=== PATIENT | male | born 1970 | race Two or more races ===

== ENCOUNTER 2023-12-10 08:23 | Day surgery (SDC) | payer BC, SELFPAY ==
--- NOTE | 2023-12-10 08:26 | FL_ITS ---
[address] [address] Patient Name: JUSTA HOU MRN: [id number] date: 1970 Sex: M Assigned Patient Location: MRI Current Patient Location: MRI Accession/Order Number: [id number] Exam Date: 12/10/2023 09:00 Report Date: 12/10/2023 09:57 At the request of: KIMBERLY INMAN Procedure: FL arthrogram hip EXAMINATION: FL arthrogram hip, FL guided needle placement HISTORY: Chronic left hip pain COMPARISON: No relevant comparison available. TECHNIQUE: An arthrogram was performed under fluoroscopic guidance using non-ionic contrast material in the usual sterile manner after obtaining informed consent. Standard level fluoroscopic mode of operation utilized. FINDINGS: JOINT: Left hip NEEDLE: 25 gauge, 3.5 spinal needle. MEDICATION: 2 mL buffered 1% lidocaine for subcutaneous anesthesia. Approximately 8 mL injected into joint space consisting of a mixture of 5 mL Omnipaque-300, 5 mL 1% Xylocaine, 40 mg Kenalog, and 0.2 mL Dotarem. TECHNIQUE: Anterior approach under fluoroscopic guidance. CLINICAL: Decreased pain following the injection (8/10 preinjection; 2/10 post injection). COMPLICATIONS: None. OTHER: Negative. FL/FL arthrogram hip IMPRESSION: 1. Technically successful arthrogram without complication. 2. Please see separate MRI arthrogram report. Electronically authenticated by: DAVID MENARD Date: 12/10/2023 09:57
--- NOTE | 2023-12-10 08:26 | FL_ITS ---
[address] [address] Patient Name: JUSTA HOU MRN: [id number] date: 1970 Sex: M Assigned Patient Location: MRI Current Patient Location: MRI Accession/Order Number: [id number] Exam Date: 12/10/2023 09:00 Report Date: 12/10/2023 09:57 At the request of: KIMBERLY INMAN Procedure: FL guided needle placement EXAMINATION: FL arthrogram hip, FL guided needle placement HISTORY: Chronic left hip pain COMPARISON: No relevant comparison available. TECHNIQUE: An arthrogram was performed under fluoroscopic guidance using non-ionic contrast material in the usual sterile manner after obtaining informed consent. Standard level fluoroscopic mode of operation utilized. FINDINGS: JOINT: Left hip NEEDLE: 25 gauge, 3.5 spinal needle. MEDICATION: 2 mL buffered 1% lidocaine for subcutaneous anesthesia. Approximately 8 mL injected into joint space consisting of a mixture of 5 mL Omnipaque-300, 5 mL 1% Xylocaine, 40 mg Kenalog, and 0.2 mL Dotarem. TECHNIQUE: Anterior approach under fluoroscopic guidance. CLINICAL: Decreased pain following the injection (8/10 preinjection; 2/10 post injection). COMPLICATIONS: None. OTHER: Negative. FL/FL guided needle placement IMPRESSION: 1. Technically successful arthrogram without complication. 2. Please see separate MRI arthrogram report. Electronically authenticated by: DAVID MENARD Date: 12/10/2023 09:57
--- NOTE | 2023-12-10 08:26 | MR_ITS ---
The [address] [address] Patient Name: JUSTA HOU MRN: [id number] date: 1970 Sex: M Assigned Patient Location: MRI Current Patient Location: MRI Accession/Order Number: [id number] Exam Date: 12/10/2023 09:34 Report Date: 12/10/2023 12:22 At the request of: KIMBERLY INMAN Procedure: MR hip LT w con HISTORY: Chronic left hip pain for the past 2 years. No known injury. Evaluate for avascular necrosis, labral tear and arthritis. MRI left hip with contrast (direct MR arthrogram) 12/10/2023. COMPARISON: None. TECHNIQUE: Multiplanar, multisequence MRI images of the pelvis and left hip were obtained following the fluoroscopic guided administration of dilute gadolinium into the left hip joint for an MR arthrogram. FINDINGS: The bone marrow signal intensity is age appropriate. A least moderate to severe discogenic disease with mild adjacent type I Modic endplate change at the L5-S1 level. There is no evidence of avascular necrosis or fracture of the left hip. There are severe degenerative changes primarily involving the superolateral and anterosuperior aspect of the left hip joint where there is grade IV chondromalacia with joint space narrowing and marginal osteophyte formation of the acetabulum. There is a complex tear of the anterolateral and superolateral aspect of the labrum. There is a small 6 mm paralabral cyst adjacent to the posterolateral aspect of the acetabulum. There are multiple small linear low signal intensity filling defects within the contrast of the left hip joint compatible with a probable underlying synovitis. There is a large osseous ridge along the anterolateral aspect of the femoral head/neck junction. On the large jwbrh-ak-fueb images of the pelvis there appear to be at least mild degenerative changes of the superolateral aspect of the right hip joint. MR/MR hip LT w con IMPRESSION: 1. There are severe degenerative changes of the left hip joint as described above with a complex tear of the anterolateral and superolateral aspect of the labrum. 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 2. There appear to be at least mild degenerative changes of the superolateral aspect of the right hip joint on the large icitb-fg-hrpk images of the pelvis. 3. There appears to be at least moderate to severe degenerative change at the L5-S1 level. Electronically authenticated by: CHRISTY PERALTA Date: 12/10/2023 12:22
[2023-12-10] MEDS: TRIAMCINOLONE ACETONIDE 40 MG/ML VIAL INJ (09:15)
[2023-12-10] MEDS: LIDOCAINE HCL 15 ML, SODIUM BICARBONATE 2 MEQ INJ (09:15)
--- NOTE | 2023-12-10 09:58 | SUR.PREOP ---
12/05/23 Instructe d pt on procedure, prep, date, time.
== END 2023-12-10 09:35 | disposition home or self-care (01) ==
LOC: MRI 08:23
PROVIDERS: Radiology Diagnostic Radiology; PCP Internal Medicine; Visit Provider Personal Emergency Response Attendant
DX: M25.552 Pain in left hip (principal); M16.12 Unilateral primary osteoarthritis, left hip
CPT/HCPCS: 27093; 73722; 77002; A9575; J3301; Q9967

== ENCOUNTER 2025-10-27 20:40 | Emergency (ER) | payer BC, SELFPAY ==
--- OUTSIDE RECORDS SUMMARY | 2025-10-18 07:54 | XMS_ITS | Encounter Summary ---
Author Organization [facility] tem Address [id number] [address] [place] [address] Care Team Providers Care Leather Stretcher Name Role Phone Unavailable Primary Care Provider Unavailabl e Encounter Details DateTypeDepartmentCare Team (Latest Contact Info)Edxsotpqefn50/15/2025 7:54 AM EST - 10/18/2025 11:59 PM ESTHospital Encounter [facility] [address] [facility] [place] [id number] Oneal Cordero MD [address] [place] [address] Primary osteoarthritis of left hip Discharge Disposition: Home Social History Tobacco UseTypesPacks/DayYears UsedDateSmoking Tobacco: FormerCigarettes Smokeless Tobacco: CurrentSnuff Comments:Smoked for 30 years 1pk/day quit 2009 Alcohol UseStandard Drinks/GsljUeklvrhfFky24 (1 standard drink = 0.6 oz pure alcohol)ChildcareAnswerDate TqohutftRiafsgemfHtowfdx52/12/2019EmploymentAnswer Date VwbvdbapBzdtwkulruByutjbw15/12/2019Sex and Gender InformationValueDate RecordedSex Assigned at BirthNot on fileLegal RshVaax8706/09/2015 11:30 AM EDT Gender IdentityNot on fileSexual OrientationNot on filedocumented as of this encounter Medications at Time of Discharge MedicationSigDispense QuantityRefillsLast FilledStart DateEnd Date allopurinoL (ZYLOPRIM) 100 mg tablet Take 1 tablet (100 mg total) by mouth in the morning. aspirin 81 mg Indications:Primary osteoarthritis of left hipTake 1 tablet (81 mg total) by mouth in the morning and 1 tablet (81 mg total) before bedtime. Begin taking day AFTER total joint replacement. 60 tablet 09/22/2025 CREATINE MONOHYDRATE ORAL Take 2 tablets by mouth in the morning. hydroCHLOROthiazide (HYDRODIURIL) 25 mg tablet Take 1 tablet (25 mg total) by mouth daily.05/24/2025 losartan (COZAAR) 100 mg tablet Take 1 tablet (100 mg total) by mouth in the morning. meloxicam (MOBIC) 15 mg tablet Indications:Primary osteoarthritis of left hipTake 1 tablet (15 mg total) by mouth in the morning. Begin taking day AFTER total joint replacement. 30 tablet 09/22/2025 ogsjqixz-dbxo-IJ-calcium &mins (THERAGRAN-M) 9 mg iron-400 mcg tablet Take 1 tablet by mouth in the morning. omega 0-lmw-lbn-fish oil 100-400-1,000 mg capsule Take 1,000 mg by mouth in the morning. oxyCODONE-acetaminophen (PERCOCET) 5-325 mg per tablet Indications:Primary osteoarthritis of left hipTake 1 tablet by mouth every 6 (six) hours as needed for pain for up to 7 days. Max Daily Amount: 4tablets 28 tablet rosuvastatin (CRESTOR) 10 mg tablet Take 1 tablet (10 mg total) by mouth in the morning. testosterone (ANDROGEL) 30 mg/actuation (1.5 mL) solution in metered pump w/bre Place 30 mg on the skin in the morning.documented as of this encounter Plan of Treatment DateTypeDepartmentCare Team (Latest Contact Info)Taqsrssbspf78/02/2026 8:30 AM ESTOffice Visit [facility] [address] [place] [address] Veronica Pimentel PA-C [address] [facility] [address] [place] [address] documented as of this encounter Goals GoalPatient Goal TypeAssociated ProblemsRecent ProgressPatient-Stated?Author Autogenerated Goal Care PlanAutogenerated ProblemNoSchroeder, Allisondocumented as of this encounter Procedures Procedure NamePriorityDate/TimeAssociated DiagnosisCommentsXR HIP LT 1 VIEW W OR WO TKFJCZOrvdyct12/15/2025 8:17 AM EST Primary osteoarthritis of left hip documented in this encounter Results * X-ray hip left 1 view with or without pelvis (10/18/2025 8:17 AM EST) Anatomical RegionLateralityModalityLower Extremities, MSK, HipLeftComputed RadiographySpecimen (Source)Anatomical Location / LateralityCollection Method / VolumeCollection TimeReceived Time10/18/2025 8:31 AM EST Narrative 10/18/2025 8:32 AM EST Clinical history: Osteophytosis. Left hip: 10/18/2025 COMPARISON: 01/27/2025 FINDINGS: 2 views of the hip were obtained. Joint space narrowing, subarticular sclerosis, marginal new bone formation are present. The trabecular pattern within the femoral head is within normal limits. Thereare mild degenerative changes at the right hip and within the sacroiliac joints. Bone mineralization is otherwise within normal limits IMPRESSION: Left hip osteoarthritis. Finalized by Spike Chua MD on 10/18/2025 8:32 AM Procedure Note Spike Chua MD - 10/18/2025 Clinical history: Osteophytosis. Left hip: 10/18/2025 COMPARISON: 01/27/2025 FINDINGS: 2 views of the hip were obtained. Joint space narrowing, subarticularsclerosis, marginal new bone formation are present. The trabecular patternwithin the femoral head is within normal limits. There are milddegenerative changes at the right hip and within the sacroiliac joints.Bone mineralization is otherwise within normal limits IMPRESSION: Left hip osteoarthritis. Finalized by Spike Chua MD on 10/18/2025 8:32 AM Authorizing ProviderResult TypeResult StatusCraig P Gil [facility] ORDERABLESFinal Result documented in this encounter Visit Diagnoses Diagnosis Primary osteoarthritis of left hip documented in this encounter Additional Health Concerns Active ProblemsNoted DateDiagnosed DateAutogenerated Fdqsiwp14/07/2025documented as of this encounter
--- OUTSIDE RECORDS SUMMARY | 2025-10-20 05:41 | XMS_ITS | Encounter Summary ---
Author Organization [employer] tem Address [id number] [address] [place] [address] Care Team Providers Care Generator Operator Straight Bevel Gear Name Role Phone Krystian Henriquez MD Primary Care Provider [phone] Reason for Referral * Misc (Routine) - Pending ReviewSpecialtyDiagnoses / ProceduresReferred By ContactReferred To Contact Diagnoses Primary osteoarthritis of left hip Procedures Walker standard Charisma Crow MD [address] [place] [address] Phone: tel: fax: Referral IDStatusReasonStart DateExpiration DateVisits RequestedVisits [id number] * Misc (Routine) - Pending ReviewSpecialtyDiagnoses / ProceduresReferred By ContactReferred To Contact Diagnoses Primary osteoarthritis of left hip Procedures Discharge medication instruction-no alcohol while taking pain medications Charisma Crow MD [address] [place] [address] Phone: tel: fax: Referral IDStatusReasonStart DateExpiration DateVisits RequestedVisits [id number] * Misc (Routine) - Pending ReviewSpecialtyDiagnoses / ProceduresReferred By ContactReferred To Contact Diagnoses Primary osteoarthritis of left hip Procedures Discharge instruction after anesthesia/sedation Charisma Crow MD [address] [place] [address] Phone: tel: fax: Referral IDStatusReasonStart DateExpiration DateVisits RequestedVisits [id number] [id number] * Misc (Routine) - Pending ReviewSpecialtyDiagnoses / ProceduresReferred By ContactReferred To Contact Diagnoses Primary osteoarthritis of left hip Procedures Follow-up with MD 7-14 days after surgery Charisma Crow MD [address] [place] [address] Phone: tel: fax: Referral IDStatusReasonStart DateExpiration DateVisits RequestedVisits [id number] * Misc (Routine) - Pending ReviewSpecialtyDiagnoses / ProceduresReferred By ContactReferred To Contact Diagnoses Primary osteoarthritis of left hip Procedures Dressing instructions- keep incision clean and dry Charisma Crow MD [address] [place] [address] Phone: tel: fax: Referral IDStatusReasonStart DateExpiration DateVisits RequestedVisits [id number] * Misc (Routine) - Pending ReviewSpecialtyDiagnoses / ProceduresReferred By ContactReferred To Contact Diagnoses Primary osteoarthritis of left hip Procedures Hygiene- may shower Charisma Crow MD [address] [place] [address] Phone: tel: fax: Referral IDStatusReasonStart DateExpiration DateVisits RequestedVisits [id number] [id number] * Misc (Routine) - Pending ReviewSpecialtyDiagnoses / ProceduresReferred By ContactReferred To Contact Diagnoses Primary osteoarthritis of left hip Procedures Apply ice to affected area Charisma Crow MD [address] [place] [address] Phone: tel: fax: Referral IDStatusReasonStart DateExpiration DateVisits RequestedVisits [id number] * Misc (Routine) - Pending ReviewSpecialtyDiagnoses / ProceduresReferred By ContactReferred To Contact Diagnoses Primary osteoarthritis of left hip Procedures Wear GERARD hose- on in morning, off at night Charisma Crow MD [address] [place] [address] Phone: tel: fax: Referral IDStatusReasonStart DateExpiration DateVisits RequestedVisits [id number] [id number] * Misc (Routine) - Pending ReviewSpecialtyDiagnoses / ProceduresReferred By ContactReferred To Contact Diagnoses Primary osteoarthritis of left hip Procedures Elevate surgical leg above heart while sitting Charisma Crow MD [address] [place] [address] Phone: tel: fax: Referral IDStatusReasonStart DateExpiration DateVisits RequestedVisits [id number] * Misc (Routine) - Pending ReviewSpecialtyDiagnoses / ProceduresReferred By ContactReferred To Contact Diagnoses Primary osteoarthritis of left hip Procedures Adult diet Charisma Crow MD [address] [place] [address] Phone: tel: fax: Referral IDStatusReasonStart DateExpiration DateVisits RequestedVisits [id number] Reason for Visit * Auth/CertSpecialtyDiagnoses / ProceduresReferred By ContactReferred To Contact Diagnoses Primary osteoarthritis of left hip Primary osteoarthritis of left hip [M16.12] Procedures CA TOTAL HIP ARTHROPLASTY REPLACEMENT TOTAL JOINT HIP ANTERIOR SUPINE INTERMUSCULAR Charisma Crow MD [address] [place] [address] Phone: tel: fax: Referral IDStatusReasonStart DateExpiration DateVisits RequestedVisits [id number] Encounter Details DateTypeDepartmentCare Team (Latest Contact Info)Ehfxbsplolv82/17/2025 5:41 AM EST - 10/20/2025 3:00 PM ESTHospital Encounter [facility] [address] [facility] [place] [address] Charisma Crow MD [address] [place] [address] Primary osteoarthritis of left hip (Primary Dx) Discharge Disposition: Home Social History Tobacco UseTypesPacks/DayYears UsedDateSmoking Tobacco: FormerCigarettes Smokeless Tobacco: CurrentSnuff Comments:Smoked for 30 years 1pk/day quit 2009 Alcohol UseStandard Drinks/RwydDvjbrxmtSlm44 (1 standard drink = 0.6 oz pure alcohol)ChildcareAnswerDate TtwtpctfDluzofbfbTvhgekd30/12/2019EmploymentAnswer Date RqohlzhnCylxilifhkNcemokd15/12/2019Sex and Gender InformationValueDate RecordedSex Assigned at BirthNot on fileLegal UjcBnoe2306/09/2015 11:30 AM EDT Gender IdentityNot on fileSexual OrientationNot on filedocumented as of this encounter Last Filed Vital Signs Vital SignReadingTime TakenCommentsBlood Yhayctjs963/80112/21/2024 2:45 PM EST Quixj047810/20/2025 12:05 PM QDQSzzcofsebzj17.4 ??C (97.5 ??F)10/20/2025 2:45 PM ESTRespiratory Dahk559812/21/2024 2:45 PM ESTOxygen Ajumockend68%10/20/2025 2:45 PM ESTInhaled Oxygen Concentration--Lbcixr63.6 kg (160 lb)10/20/2025 6:38 AM EST Mrtrcq388 cm (5' 7.72 )10/20/2025 6:38 AM ESTBody Mass Index24.5310/20/2025 6:38 AM ESTdocumented in this encounter Functional Status * GaitQuestionAnswerDate of AssessmentAuthorAssistive DeviceRolling walker 10/20/2025 1:02 PM Ladonna Wagoner, PT * HEENTQuestionAnswerDate of AssessmentAuthorHEENT (WDL)WDL112/21/2024 2:45 PM Tia Miller RN * AN Cardiac QuestionsQuestionAnswerDate of AssessmentAuthorCP when climbing a flight of stairs or walking a city block?No10/20/2025 6:38 AM Michelle Lindquist RNSOB when climbing a flight of stairs or walking a city block?No 10/20/2025 6:38 AM Michelle Lindquist, STELLA * ActivityQuestionAnswerDate of AssessmentAuthorActivity PerformedDangle;Stand at bedside;Ambulate in wallace;Back to bed10/20/2025 1:02 PM Ladonna Wagoner, PT * OR Patient PreparationQuestionAnswerDate of AssessmentAuthorTime of last chfywi4800100/17/2025 6:40 AM Michelle Lindquist RNDate of last mdxanq74885 10/20/2025 6:40 AM Michelle Lindquist, STELLADate of last ioewm7087465/17/2025 6:40 AM Michelle Lindquist, RNTime of last ojjzn5816089/17/2025 6:40 AM Michelle Lindquist RN * BEE (kcal)AnswerDate of TmbzobvsuuQwigjj632403/17/2025 6:38 AM Michelle Lindquist RN * VitalsQuestionAnswerDate of ZvnwehkpgtNsepyvEF863/80112/21/2024 2:45 PM Tia Ruffin RNTemp97. 2:45 PM Tia Miller RNTemp ljmXtnbsfze73/17/2025 2:45 PM Tia Miller, DAQtldm7779/17/2025 12:05 PM Tia Miller OWTnzo5407/17/2025 2:45 PM Tia Miller RN EhA4093910/20/2025 2:45 PM Tia Miller RNHeart Rate SourcePulse Ox 10/20/2025 2:45 PM Tia Miller RNBP LocationLeft arm10/20/2025 2:45 PM Tia Miller RNBP GgkddnCkwehludu62/17/2025 2:45 PM Tia Miller RNCardiac RhythmNormal sinus igcugx6510/20/2025 2:45 PM Tia Miller RNMAP (mmHg)8610/20/2025 11:30 AM Mamta Flores RNIs this an Orthostatic BP?No10/20/2025 12:05 PM Tia Miller RN * PACU InterventionsQuestionAnswerDate of AssessmentAuthorCold TherapyContinued 10/20/2025 2:45 PM Tia Miller RNComfort/Environmental Interventions Cold fxakeip5110/20/2025 2:45 PM Tia Miller RNIntermittent Pneumatic Cuff (IPC/EPC)Bilateral lower extremities;Rprdtmgie82/17/2025 2:45 PM Tia Ruffin RN * Oxygen TherapyQuestionAnswerDate of AssessmentAuthorO2 Flow Rate (L/min)0 10/20/2025 2:45 PM Tia Miller RNO2 DeviceNone (Room air)10/20/2025 2:45 PM Tia Miller RN * Height and WeightQuestionAnswerDate of SbhaakdhhnChypkaHnbrfc07.7210/20/2025 6:38 AM Michelle Lindquist RNWeight2560112/21/2024 6:38 AM Michelle Lindquist RNHeight XqsosaHosgei06/17/2025 6:38 AM Michelle Lindquist RNBSA (Calculated - sq m)1.8610/20/2025 6:38 AM Michelle Lindquist RNBMI (Calculated)24.5 10/20/2025 6:38 AM Michelle Lindquist RNWeight NcezvxOkuems29/17/2025 6:38 AM Michelle Lindquist RNWeight in (lb) to have BMI = 64209.7112/21/2024 6:38 AM Michelle Lindquist RN * Pain 2QuestionAnswerDate of AssessmentAuthorObserved HfywooirWwla30/17/2025 2:39 PM Tia Miller RN * Patient ObservationQuestionAnswerDate of AssessmentAuthorPatient Observations pt moved to short stay; vss; report received from PACU112/21/2024 12:05 PM Tia Ruffin RN * NeurologicalQuestionAnswerDate of AssessmentAuthorDermatome Sensory Function Medial ankle, great toe10/20/2025 11:30 AM Mamta Flores RNLLE AvjvcxmqxWpnlofthe68/17/2025 2:45 PM Tia Miller RNNeuro (WDL)X 10/20/2025 2:45 PM Tia Miller RNLevel of ConsciousnessAlert 10/20/2025 2:45 PM Tia Miller RNMotor Function/Sensation Assessment Wnvrzynbd01/17/2025 2:45 PM Tia Miller RNRichmond Agitation Sedation Scale (RASS) 2:45 PM Tia Miller RN * CardiacQuestionAnswerDate of AssessmentAuthorCardiac (WDL)WDL112/21/2024 2:45 PM Tia Miller RN * GastrointestinalQuestionAnswerDate of AssessmentAuthorGastrointestinal (WDL) WDL112/21/2024 2:45 PM Tia Miller RN * MusculoskeletalQuestionAnswerDate of AssessmentAuthorLLELimited movement;Weakness;Pulse present;Sensation intact;Woody wrap112/21/2024 2:45 PM Tia Miller RNMusculoskeletal (WDL)X112/21/2024 2:45 PM Tia Miller RN * Anus/RectumQuestionAnswerDate of AssessmentAuthorAnus/Rectum (WDL)WDL 10/20/2025 2:45 PM Tia Miller RN * PsychosocialQuestionAnswerDate of AssessmentAuthorPsychosocial (WDL)WDL 10/20/2025 6:44 AM Michelle Lindquist RN * Segundo Fall RiskQuestionAnswerDate of AssessmentAuthorHistory of Falling0 10/20/2025 2:45 PM Tia Miller RNSecondary Dldkhqdsi928/17/2025 2:45 PM Tia Miller RNAmbulatory Rvvm094 2:45 PM Tia Miller RNIntravenous Therapy/Heparin/Saline Hqxc5939 2:45 PM Tia Ruffin RNGait/Fjxwxdwbraly249/17/2025 2:45 PM Tia Miller RNMental Emudot263 2:45 PM Tia Miller RNScore20 10/20/2025 2:45 PM Tia Miller RN * RespiratoryQuestionAnswerDate of AssessmentAuthorRespiratory (WDL)WDL 10/20/2025 6:44 AM Michelle Lindquist, STELLA * Services RequestedQuestionAnswerDate of AssessmentAuthorDischarge Disposition Home with home health fsnvxanv65/11/2025 1:19 PM Eileen Rodriguez LISW Facility/Service RowzZqjtqmr51/11/2025 1:19 PM Eileen Rodriguez LISW Facility/Service Fax qgctza618-104-658220/11/2025 1:19 PM Eileen Rodriguez LISWPatient DeclinedOther (must state reason)10/14/2025 1:19 PM Eileen Joel LISWFacility/Service Phone Olzenz592-144-089114/11/2025 1:19 PM Eileen Rodriguez LISWList ProvidedPatient dmqxeghm75/11/2025 1:19 PM Eileen Rodriguez LISWPatient choice ezvpvucLrt41/11/2025 1:19 PM Eileen Rodriguez LISW * GenitourinaryQuestionAnswerDate of AssessmentAuthorGenitourinary (WDL)[facility] 10/20/2025 2:45 PM Tia Miller RN * Abuse Indicator ScreeningQuestionAnswerDate of AssessmentAuthorSafe in HomeYes 10/20/2025 6:10 AM Michelle Lindquist RNDo you feel safe in your relationship(s)?Yes10/20/2025 6:10 AM Michelle Lindquist RNAre you in immediate danger?No10/20/2025 6:10 AM Michelle Lindquist RN * Prior FunctionQuestionAnswerDate of AssessmentAuthorLevel of Mobility Independent with ADLs and functional transfers or gait10/20/2025 1:02 PM Ladonna Zhao, PTLives WithSpouse;Other (Comment)10/20/2025 1:02 PM Ladonna Zhao, PTReceives Help LdabVpdnzj35/17/2025 1:02 PM ESTStalter, Ladonna, PTHomemaking EotawkdyzmTsfnybroomy15/17/2025 1:02 PM Ladonna Wagoner PT * ADL / IADLQuestionAnswerDate of AssessmentAuthorBathing/Showering Assistance Min poytlh5810/20/2025 1:01 PM Clara Khan, OTR/LToilet/Commode AssistanceMin eghfqu6610/20/2025 1:01 PM Clara Khan, OTR/LUE Dressing XhftdqxwdrWntun43/17/2025 1:01 PM Clara Khan, OTR/LLE Dressing AssistanceMin eeasty4510/20/2025 1:01 PM Clara Khan, OTR/LFootwear AssistanceMin uqrdhs3210/20/2025 1:01 PM Clara Khan, OTR/LEating AjatbquxxyChmyg51/17/2025 1:01 PM Clara Khan, OTR/LGrooming AasstyrnmvVvbfi53/17/2025 1:01 PM Clara Khan, OTR/L * Patient AssessmentQuestionAnswerDate of AssessmentAuthorMood/AffectAppropriate for doznwevwkxapl51/17/2025 1:02 PM Ladonna Wagoner PTTherapy Problem ListDecreased balance;Decreased mobility;Decreased LE /17/2025 1:02 PM Ladonna Wagoner PTRehab PrognosisGood;With continued PT status post acute nrbxkjolo35/17/2025 1:02 PM Ladonna Wagoner PTPatient Response to TreatmentProgressing toward goals;Improving as twzcfcve75/17/2025 1:30 PM Nataly Resendiz, APPLICATION INFRASTRUCTURE ENGINEER * Provider CommunicationQuestionAnswerDate of AssessmentAuthorProvider RoleNurse 10/20/2025 11:45 AM Mamta Flores RNProvider Fylakhgdvjef66/17/2025 11:45 AM Mamta Flores RNMethod of CommunicationFace to Face10/20/2025 11:45 AM Mamta Flores RNResponseIn zhpuunrdhj31/17/2025 11:45 AM Mamta Gant RN * Blood HistoryQuestionAnswerDate of AssessmentAuthorHave you had a blood transfusion?No10/20/2025 6:38 AM Michelle Lindquist RNWould you accept a blood transfusion in a life-threatening situation?Yes10/20/2025 6:38 AM Michelle Lindquist RN * Medical Advance DirectiveQuestionAnswerDate of AssessmentAuthorDo you have a Medical Advance Directive?No10/20/2025 6:25 AM Michelle Lindquist RNMedical Advance Directive InformationPatient would not like gwoszckdcrf04/17/2025 6:25 AM Michelle Lindquist RN * Adult Sepsis RiskQuestionAnswerDate of AssessmentAuthorRisk of Sepsis v.20.1 10/20/2025 4:40 PM Rodri, Clindoc * VisitQuestionAnswerDate of AssessmentAuthorOT Type of VisitEvaluation 10/20/2025 1:01 PM Clara Khan, OTR/LPT Type of VisitTreatment 10/20/2025 1:30 PM Nataly Romeo PTARN GfrmwoaopggczBtt28/17/2025 1:30 PM aNtaly Romeo PTAMedical Record OxglvnreTfa25/17/2025 1:30 PM Nataly Romeo PTA * Pain AssessmentQuestionAnswerDate of AssessmentAuthorPain LocationHip 10/20/2025 2:45 PM Tia Miller RNPain VvysuyyniajYcdh35/17/2025 2:45 PM Tia Miller RNPain NrxhsljzxuaLnckb08/17/2025 2:45 PM Tia Ruffin RNPain DurationConstant/biswuywhmi33/17/2025 2:45 PM Tia Ruffin RNPatient's Stated Acceptable Pain Ihits43412/21/2024 2:45 PM Tia Miller RNResponse to InterventionsVerbalized acceptable Pain Score10/20/2025 2:45 PM Tia Miller RNPain Assessment0-10112/21/2024 2:45 PM Tia Miller RNPain Awnef02412/21/2024 2:45 PM Tia Miller RNFACES Pain Rating Hjgaf84512/21/2024 9:03 AM Mamta Flores RN * Patient Belongings at Bedside / StretcherQuestionAnswerDate of Assessment AuthorVision - Corrective ZlwnryTllcwwa37/17/2025 6:38 AM Michelle Lindquist RNClothingBelonging Bag10/20/2025 7:52 AM Mel Yuan RNBelongings at OjkcjfaFtkvyzwh58/17/2025 7:52 AM Mel Yuan RN * IntegumentaryQuestionAnswerDate of AssessmentAuthorIntegumentary (WDL)WDL 10/20/2025 6:44 AM Michelle Lindquist RN * Feature 3: Altered Level of ConsciousnessAnswerDate of AssessmentAuthor Gwtmpbaq63/17/2025 2:45 PM Tia Miller RN * Fall Risk ScaleQuestionAnswerDate of AssessmentAuthorFall Risk ScaleMorse Fall Risk Scale10/20/2025 6:39 AM Michelle Lindquist RN * Urine Output/AssessmentQuestionAnswerDate of AssessmentAuthorUrine Color Yellow/straw10/20/2025 2:15 PM Tia Miller RNUrine AppearanceClear 10/20/2025 2:15 PM Tia Miller RN * Vitals TimerQuestionAnswerDate of AssessmentAuthorRestart Vitals TimerYes 10/20/2025 12:05 PM Tia Miller RN * CardiovascularQuestionAnswerDate of AssessmentAuthorCardiovascular (WDL)WDL 10/20/2025 6:44 AM Michelle Lindquist RN * Discharge Recommendations for Safe Patient TransitionQuestionAnswerDate of AssessmentAuthorCurrent Impairments Informing Therapy RecommendationADL status;Ambulation status/coifiw3910/20/2025 1:01 PM Clara Khan, OTR/LOT Therapy RecommendationsHome Occupational Therapy;Home Physical Therapy 10/20/2025 1:01 PM Clara Khan, OTR/LPT Discharge Disposition PnriokxillwdriZfgb88/17/2025 1:30 PM Nataly Romeo PTAOT Discharge Disposition PgduwvgfantdznIvnd67/17/2025 1:01 PM Clara Khan, OTR/LOT Home RecommendationsIntermittent caregiver support for:10/20/2025 1:01 PM Clara Alberts, OTR/LPT Home RecommendationsIntermittent caregiver support for:10/20/2025 1:02 PM Ladonna Wagoner PTPT Therapy RecommendationsHome Physical Ogornbd4410/20/2025 1:30 PM Nataly Romeo, APPLICATION INFRASTRUCTURE ENGINEER * ActivityQuestionAnswerDate of AssessmentAuthorActivity PerformedDangle;Stand at bedside;Ambulate in wallace;Back to bed10/20/2025 1:02 PM Ladonna Wagoner, PT * BEE (kcal)AnswerDate of BxytrxybbpCqhhoi386146/17/2025 6:38 AM Michelle Lindquist RN * VitalsQuestionAnswerDate of GafojdgwbyGqvqpgBC077/80112/21/2024 2:45 PM Tia Ruffin RNTemp97.512 2:45 PM Tia Miller RNTemp bksAqmywcbt10/17/2025 2:45 PM Tia Miller, KARbaqb8161/17/2025 12:05 PM Tia Miller WQMhnr4485/17/2025 2:45 PM Tia Miller RN McC28329 2:45 PM Tia Miller RNHeart Rate SourcePulse Ox 10/20/2025 2:45 PM Tia Miller RNBP LocationLeft arm10/20/2025 2:45 PM Tia Miller RNBP OnokleOwuoyhelo82/17/2025 2:45 PM Tia Miller RNMAP (mmHg)8610/20/2025 11:30 AM Mamta Flores RNIs this an Orthostatic BP?No10/20/2025 12:05 PM Tia Miller RN * Height and WeightQuestionAnswerDate of InudbkybjaBocswzVkpyeo72.7210/20/2025 6:38 AM Michelle Lindquist RNWeight2560112/21/2024 6:38 AM Michelle Lindquist RNHeight IewasiPkflzv40/17/2025 6:38 AM Michelle Lindquist RNBSA (Calculated - sq m)1.8610/20/2025 6:38 AM Michelle Lindquist RNBMI (Calculated)24.5 10/20/2025 6:38 AM Michelle Lindquist RNWeight WrctgfAvmwkn10/17/2025 6:38 AM Michelle Lindquist RNWeight in (lb) to have BMI = 78041.7112/21/2024 6:38 AM Michelle Lindquist RN * Hearing / Speech / VisionQuestionAnswerDate of AssessmentAuthorHearingWFL 10/20/2025 1:02 PM ESTStalLadonna lazcano, TXRdasngVDH34/17/2025 1:02 PM EST Ladonna Matthews, PTCurrent VisionWears ziraintz64/17/2025 1:02 PM EST Ladonna Matthews, PT * ADL / IADLQuestionAnswerDate of AssessmentAuthorBathing/Showering Assistance Min htlgjv2710/20/2025 1:01 PM Clara Khan, OTR/LToilet/Commode AssistanceMin vesevz5010/20/2025 1:01 PM Clara Khan, OTR/LUE Dressing ZfqgfwstsgNkpyw51/17/2025 1:01 PM Clara Khan, OTR/LLE Dressing AssistanceMin lhlqav7710/20/2025 1:01 PM Clara Khan, OTR/LFootwear AssistanceMin rmaipl7610/20/2025 1:01 PM Clara Khan, OTR/LEating XmnavbpqqjUnzsi23/17/2025 1:01 PM Clara Khan, OTR/LGrooming QaeukhzadoSckty59/17/2025 1:01 PM Clara Khan, OTR/L * Activity ToleranceQuestionAnswerDate of AssessmentAuthorOthertolerating bed mobility, seated and supine le exs112/21/2024 1:30 PM Nataly Romeo, APPLICATION INFRASTRUCTURE ENGINEER EnduranceTolerates <30 minutes activity WITHOUT vital sign jqornnh9410/20/2025 1:02 PM Ladonna Wagoner PT * VisitQuestionAnswerDate of AssessmentAuthorOT Type of VisitEvaluation 10/20/2025 1:01 PM Clara Khan, OTR/LPT Type of VisitTreatment 10/20/2025 1:30 PM Nataly Romeo PTARN UdwdcnymgnbaqKzm78/17/2025 1:30 PM Nataly Romeo PTAMedical Record SdeyjxhtOdq58/17/2025 1:30 PM Nataly Romeo PTA documented as of this encounter Mental Status * HEENTQuestionAnswerEntry DateAuthorHEENT (WDL)WDL112/21/2024 2:45 PM Tia Ruffin RN * VitalsQuestionAnswerEntry UsywUhybojWB974/80112/21/2024 2:45 PM Tia Miller RNTemp97.512 2:45 PM Tia Miller RNTemp src Alenclsv62/17/2025 2:45 PM Tia Miller XKGmvqr5651/17/2025 12:05 PM Tia Miller BTUvxb3984/17/2025 2:45 PM Tia Miller, RNSpO2 9510/20/2025 2:45 PM Tia Miller RNHeart Rate SourcePulse Ox 10/20/2025 2:45 PM Tia Miller RNBP LocationLeft arm10/20/2025 2:45 PM Tia Miller RNBP SjgncgYxfwnryit45/17/2025 2:45 PM Tia Miller RNCardiac RhythmNormal sinus kszlra7510/20/2025 2:45 PM Tia Miller RNMAP (mmHg)8610/20/2025 11:30 AM Mamta Flores RNIs this an Orthostatic BP?No10/20/2025 12:05 PM Tia Miller RN * Oxygen TherapyQuestionAnswerEntry DateAuthorO2 Flow Rate (L/min) 2:45 PM Tia Miller RNO2 DeviceNone (Room air)10/20/2025 2:45 PM Tia Ruffin RN * Pain 2QuestionAnswerEntry DateAuthorObserved JiaoamhnPzjw15/17/2025 2:39 PM Tia Miller RN * NeurologicalQuestionAnswerEntry DateAuthorDermatome Sensory FunctionMedial ankle, great toe10/20/2025 11:30 AM Mamta Flores RNLLKhadra Sensation Bybuleuej86/17/2025 2:45 PM Tia Miller RNNeuro (WDL)X112/21/2024 2:45 PM Tia Miller RNLevel of DtvnjdwetvpyvCmwmb30/17/2025 2:45 PM Tia Miller RNMotor Function/Sensation IdteuysbiaCqyvlbzxh15/17/2025 2:45 PM Tia Miller RNRichmond Agitation Sedation Scale (RASS)0 10/20/2025 2:45 PM Tia Miller RN * CardiacQuestionAnswerEntry DateAuthorCardiac (WDL)WDL112/21/2024 2:45 PM Tia Ruffin RN * GastrointestinalQuestionAnswerEntry DateAuthorGastrointestinal (WDL)WDL 10/20/2025 2:45 PM Tia Miller RN * MusculoskeletalQuestionAnswerEntry DateAuthorLLELimited movement;Weakness;Pulse present;Sensation intact;Woody wrap112/21/2024 2:45 PM Tia Miller RNMusculoskeletal (WDL)X112/21/2024 2:45 PM Tia Miller RN * Anus/RectumQuestionAnswerEntry DateAuthorAnus/Rectum (WDL)WDL112/21/2024 2:45 PM Tia Miller RN * PsychosocialQuestionAnswerEntry DateAuthorPsychosocial (WDL)WDL112/21/2024 6:44 AM Michelle Lindquist RN * RespiratoryQuestionAnswerEntry DateAuthorRespiratory ([facility])WD12/21/2024 6:44 AM Michelle Lindquist RN * CognitionQuestionAnswerEntry DateAuthorOverall Cognitive UqiyrvOEF02/17/2025 1:02 PM Ladonna Wagoner PT * GenitourinaryQuestionAnswerEntry DateAuthorGenitourinary ([facility])WD12/21/2024 2:45 PM Tia Miller RN * Provider CommunicationQuestionAnswerEntry DateAuthorProvider RoleNurse 10/20/2025 11:45 AM Mamta Flores RNProvider Shklgzyomgwg71/17/2025 11:45 AM Mamta Flores RNMethod of CommunicationFace to Face10/20/2025 11:45 AM Mamta Flores RNResponseIn liutabgplf47/17/2025 11:45 AM Mamta Gant RN * Pain AssessmentQuestionAnswerEntry DateAuthorPain OqwbmkyqZrr70/17/2025 2:45 PM Tia Miller RNPain ImytjasocffBezs11/17/2025 2:45 PM Tia Miller RNPain SbqlwkrqlldEqbri65/17/2025 2:45 PM Tia Miller RN Pain DurationConstant/nxocyipcti10/17/2025 2:45 PM Tia Miller RN Patient's Stated Acceptable Pain Hxasp33512/21/2024 2:45 PM Tia Miller RNResponse to InterventionsVerbalized acceptable Pain Score 10/20/2025 2:45 PM Tia Miller RNPain Assessment0-10112/21/2024 2:45 PM Tia Miller RNPain Rvpan75012/21/2024 2:45 PM Tia Miller RNFACES Pain Rating Omxxj95212/21/2024 9:03 AM Mamta Flores RN * IntegumentaryQuestionAnswerEntry DateAuthorIntegumentary (L)WDL112/21/2024 6:44 AM Michelle Lindquist RN * Feature 3: Altered Level of ConsciousnessAnswerEntry DateAuthorNegative 10/20/2025 2:45 PM Tia Miller RN * Urine Output/AssessmentQuestionAnswerEntry DateAuthorUrine ColorYellow/straw 10/20/2025 2:15 PM Tia Miller RNUrine FpuxkvlaseEwavc46/17/2025 2:15 PM Tia Miller RN * Modified AldreteQuestionAnswerEntry VlmoNnufnbFxocpant828/17/2025 2:45 PM Tia Ruffin RNRespiration 2:45 PM Tia Miller RN Blubhfvemcw140/17/2025 2:45 PM Tia Miller RNConsciousness2 10/20/2025 2:45 PM Tia Miller RNOxygen Movggvlcgy970/17/2025 2:45 PM Tia Miller RNModified Tad Gessg3680/17/2025 2:45 PM Tia Ruffin RN * Discharge Recommendations for Safe Patient TransitionQuestionAnswerEntry Date AuthorCurrent Impairments Informing Therapy RecommendationADL status;Ambulation status/bcjqrk4610/20/2025 1:01 PM Clara Khan, OTR/LOT Therapy RecommendationsHome Occupational Therapy;Home Physical Therapy 10/20/2025 1:01 PM Clara Khan, OTR/LPT Discharge Disposition PajuzzpbrjfkxrWdbz60/17/2025 1:30 PM Nataly Romeo PTAOT Discharge Disposition HmzmhbjjvteypjSlko03/17/2025 1:01 PM Clara Khan, OTR/LOT Home RecommendationsIntermittent caregiver support for:10/20/2025 1:01 PM Clara Alberts, OTR/LPT Home RecommendationsIntermittent caregiver support for:10/20/2025 1:02 PM Ladonna Wagoner PTPT Therapy RecommendationsHome Physical Modqupu6210/20/2025 1:30 PM Nataly Romeo PTA documented in this encounter Discharge Instructions * Discharge Instructions* Tia Schwartz RN - 10/20/2025 10:30 AM EST If you are unable to urinate for more than 6 hours, go to the nearest emergency room or call [id number] to seek medical attention. 1. N/a 2. If using EPC cuffs, keep on and running whenever at rest. The cuffs should be worn the first 2 weeks post op, anytime you are sitting/lying for a prolonged periods of time. If you are up moving about, the cuffs do not need to be worn. If not using EPC cuffs, may perform ankle pumps to both legs 10-20x per hour while awake and at rest. 3. [facility] ice machine- Continous icing whenever at rest (16-20+ hrs/day). Replace ice and waterevery 4-6 hours around the clock. Ok to use ice and water or frozen water bottles (3-4) and water. Freeze double the amount you need and rotate as needed. 4. When directed, remove the waterproof dressing (2 days). Leave steri-strips in place, they will fall off naturally over the course of 7- 10 days. Do not pick or scrub off. 5.It is okay to take your first shower on Day 2. Begin showering daily. Use separate wash cloth, soap and water, gently wash your incision site once waterproof dressing is removed and skin is exposed. Avoid soaking in bath water, hot tubs or pools. Avoid lotions, powders or creams. Incision heals best clean, dry, open to air. 6. Continue icing as much as possible (16-20+ hrs/day). Place ice flap in pillow case and wrap woody bandage securely around surgical site to ensure skin contact. 7.n/a 8. Follow up with either Home Health Physical Therapy or Outpatient Physical Therapy (whichever oneyou choose). If the plan is for Home Health, the referral will be made prior to discharge. If the plan is for Outpatient Physical Therapy, you will need to choose your own Rehab Facility and call to schedule your first visit. NOTE: if going to a custodial facility directly from the hospital, their discharge planners will arrange any additional follow up care. New prescriptions: Blood Thinners: Your Physician has prescribed (aspirin) for DVT prophylaxis (prevention of blood clots) at discharge. Examples are: Eliquis, Coumadin and/or Aspirin. Take all blood thinners as directed. Please note: if your physician has prescribed aspirin, it is not for pain relief, but for the prevention of blood clots. Notify your Surgeon right away if you have signs of bleeding like throwing up or coughing up blood; vomit that looks like coffee grounds; blood in the urine; black, red, or tarrystools; bleeding from the gums; abnormal vaginal bleeding; bruises without a cause or that get bigger; or bleeding you cannot stop. Pain relievers: Your Physician has prescribed a narcotic for pain relief. Examples are: Percocet, Peebles, Tramadol. At first, when your pain is moderate to severe, it is important to take your narcotic pain reliever regularly. Alexander times to take your pain medication is before Physical Therapy and/or at Bedtime, but can be taken as often as every 6 hours to keep your pain at bay . Another pain control method is a Peripheral nerve block. This is where the nerve to your surgical site is numbed with numbing medication. It typically lasts for 2-3 days. If you are sent home with anOn-Q pain ball, please keep the ball in the pouch and around you body to prevent it from pulling out. The ball will be heavy and round. Please note: the ball will take a couple of days before it begins to get smaller and flatten out. The dial on the pain ball is set to drip a continuous amount of numbing medicine. If your pain is tolerable the first few days, the pain ball is most likely working. ON-Q PAIN PUMP AND PAIN PUMP DRESSING EDUCATION: Leave your On-Q pain ball dressing intact. Be careful NOT to dislodge your On-Q catheter, tape or dressing. Keep cross body bag (with On-Q ball inside) around you at all times. Remove and dispose of On-Q ball and catheter in 72 hours or 3 days from date of surgery. Reference written literature provided at discharge for more information. For any specific questions or concerns, please call [facility] Logistics Coordinator at [phone] during the hours of 7am- 9pm to reach the Anesthesiologist working for Surgical Services that day. If between the hours of 9pm- 7am, Please call the [facility] Or First Assist Registered Nurse to reach the Pbx Technician Anesthesiologist at [phone]. Anti-inflammatory medications: Your physician will typically prescribe Mobic or Celebrex to reduce swelling after surgery. This and icing will help to limit pain and swelling. Take as directed. For any specific questions or concerns, call your Surgeon's office. documented in this encounter Medications at Time of Discharge [...] AFTER total joint replacement. 30 tablet 09/22/2025 hcdxcirv-fzpn-CR-calcium &mins (THERAGRAN-M) 9 mg iron-400 mcg tablet Take 1 tablet by mouth in the morning. omega 2-cec-vtd-fish oil 100-400-1,000 mg capsule Take 1,000 mg by mouth in the morning. oxyCODONE-acetaminophen (PERCOCET) 5-325 mg per tablet Indications:Primary osteoarthritis of left hipTake 1 tablet by mouth every 6 (six) hours as needed for pain for up to 7 days. Max Daily Amount: 4tablets 28 tablet / rosuvastatin (CRESTOR) 10 mg tablet Take 1 tablet (10 mg total) by mouth in the morning. testosterone (ANDROGEL) 30 mg/actuation (1.5 mL) solution in metered pump w/bre Place 30 mg on the skin in the morning.documented as of this encounter H&P Notes * Charisma Crow MD - 10/20/2025 7:25 AM EST HISTORY AND PHYSICAL INTERVAL NOTE: Dmitri Pelletier 1970 [id number] H&P reviewed. The patient was examined and there are no changes to the H&P. CHARISMA CROW MD Source Note - LETI Marie - 10/06/2025 12:30 PM EST PRE-ADMISSION TESTING HISTORY AND PHYSICAL EXAM DATE: 10/06/25 PCP: No primary care provider on file. CHIEF COMPLAINT: left hip pain HISTORY OF PRESENT ILLNESS: Dmitri Pelletier, a 55 y.o. Other /White male, presents to [facility] for a pre-surgical H&P for REPLACEMENT TOTAL JOINT HIP ANTERIOR SUPINE INTERMUSCULAR LEFT with Charisma Crow MD on 10/20/25. The patient has been diagnosed with Pre-Op Diagnosis Codes: * Primary osteoarthritis of left hip [M16.12] . He complains of left hip pain. He has had left hip pain for five years. He has had two cortisone injections, first one helped for a year and the secondone did not help at all. He has done physical therapy. Pain is constant. Seems to be worse now thatit is cold. Right hip bothering him some too. Pain worse with putting on his boots, bending and twisting. He has pain with sleeping at night. He took ibuprofen once this weekend. His hip has felt unstable on occasion. Radiographs of his left hip demonstrated severe degenerative change with loss of joint space osteophyte formation sclerosis and cysts. The patient denies h/o anesthesia problems. Today the patient is in usual state of health and denies acute complaints. They deny history of DVT/PE. PAST MEDICAL HISTORY: Past Medical History: Diagnosis Date Arthritis osteo- here for workup for pending left KAYLAH Borderline diabetes Dental disease 2 implants, 1 bridge on bottom Gout hx of Hyperlipidemia Hypertension Visual impairment contacts/readers PAST SURGICAL HISTORY: Past Surgical History: Procedure Laterality Date COLONOSCOPY KNEE ARTHROSCOPY Right WISDOM TOOTH EXTRACTION FAMILY HISTORY: Family History Problem Relation Age of Onset Depression Mother Aneurysm Father SOCIAL HISTORY: The patient reports current alcohol use of about 24.0 standard drinks of alcohol per week. He reports that he has quit smoking. His smoking use included cigarettes. His smokeless tobacco useincludes snuff. He reports no history of drug use. ALLERGIES: No Known Allergies MEDICATIONS: Current Outpatient Medications: CREATINE MONOHYDRATE ORAL, Take 2 tablets by mouth in the morning., Disp: , Rfl: hydroCHLOROthiazide (HYDRODIURIL) 25 mg tablet, Take 1 tablet (25 mg total) by mouth daily., Disp: , Rfl: losartan (COZAAR) 100 mg tablet, Take 1 tablet (100 mg total) by mouth in the morning., Disp: , Rfl: ntropnwi-yczh-RG-calcium &mins (THERAGRAN-M) 9 mg iron-400 mcg tablet, Take 1 tablet by mouth in the morning., Disp: , Rfl: omega 7-ork-csb-fish oil 100-400-1,000 mg capsule, Take 1,000 mg by mouth in the morning., Disp: , Rfl: rosuvastatin (CRESTOR) 10 mg tablet, Take 1 tablet (10 mg total) by mouth in the morning., Disp: , Rfl: testosterone (ANDROGEL) 30 mg/actuation (1.5 mL) solution in metered pump w/bre, Place 30 mg on theskin in the morning., Disp: , Rfl: allopurinoL (ZYLOPRIM) 100 mg tablet, Take 1 tablet (100 mg total) by mouth in the morning., Disp: , Rfl: aspirin 81 mg, Take 1 tablet (81 mg total) by mouth in the morning and 1 tablet (81 mg total) before bedtime. Begin taking day AFTER total joint replacement., Disp: 60 tablet, Rfl: 0 meloxicam (MOBIC) 15 mg tablet, Take 1 tablet (15 mg total) by mouth in the morning. Begin taking day AFTER total joint replacement., Disp: 30 tablet, Rfl: 0 REVIEW OF SYSTEMS: Review of Systems Constitutional: Negative for fever and chills. HENT: Positive for dental problem. Negative for congestion and rhinorrhea. Eyes: Positive for visual disturbance. Negative for pain and redness. Respiratory: Negative for cough and shortness of breath. Cardiovascular: Negative for chest pain and palpitations. Gastrointestinal: Negative for nausea, vomiting, abdominal pain and diarrhea. Genitourinary: Negative for dysuria and frequency. Musculoskeletal: Positive for arthralgias. Negative for back pain. Skin: Negative for rash and wound. Neurological: Negative for dizziness and headaches. VITAL SIGNS: BP 148/81 Pulse 64 Temp 36.2 ??C (97.2 ??F) (Temporal) Resp 16 Ht 172 cm (5' 7.72 ) Wt 72.7 kg (160 lb 4.4 oz) SpO2 98% BMI 24.57 kg/m?? PHYSICAL EXAM: Physical Exam Vitals reviewed. Constitutional: Appearance: Normal appearance. HENT: Head: Normocephalic and atraumatic. Mouth/Throat: Pharynx: Oropharynx is clear. No oropharyngeal exudate or posterior oropharyngeal erythema. Comments: Mallampati II Eyes: General: Right eye: No discharge. Left eye: No discharge. Conjunctiva/sclera: Conjunctivae normal. Cardiovascular: Rate and Rhythm: Normal rate and regular rhythm. Pulmonary: Effort: Pulmonary effort is normal. Breath sounds: Normal breath sounds. Abdominal: Palpations: Abdomen is soft. Tenderness: There is no abdominal tenderness. Musculoskeletal: Cervical back: Normal range of motion. Right lower leg: No edema. Left lower leg: No edema. Skin: General: Skin is warm and dry. Neurological: General: No focal deficit present. Mental Status: He is alert and oriented to person, place, and time. Psychiatric: Mood and Affect: Mood normal. Behavior: Behavior normal. RECENT LABS: No results found for: WBC , HGB , HCT , PLT , INR , PTT , SODIUM , K , CL , CO2 , CALCIUM , MAGNESIUM , ALKPHOS , ALBUMIN , GLU , HGBA1C , ALT , AST , CREATININE , BUN , GFR , TSH , PSA *Please note that labs listed above are the most recent lab values available in [facility] at the time ofthe office visit and additional labs may have been drawn since that time. ASSESSMENT / DIAGNOSIS: Pre-Op Diagnosis Codes: * Primary osteoarthritis of left hip [M16.12] PLAN: Dmitri Pelletier is scheduled for REPLACEMENT TOTAL JOINT HIP ANTERIOR SUPINE INTERMUSCULAR LEFTwith Charisma Crow MD on 10/20/25 LETI Marie 10/06/25 1255 LETI Marie 10/20/25 0725 documented in this encounter Miscellaneous Notes * PT/OT/CONNIE CLEANER - Nataly Madrigal, APPLICATION INFRASTRUCTURE ENGINEER - 10/20/2025 1:36 PM EST Physical Therapy Treatment Discharge Recommendations for Safe Patient Transition PT Discharge Disposition Recommendation: Home PT Therapy Recommendations: Home Physical Therapy Therapy Plan Need for skilled Physical Therapy to address deficits in functional mobility due to a status decline resulting from kaylah. Past Medical History: Diagnosis Date Arthritis osteo- here for workup for pending left KAYLAH Borderline diabetes Dental disease 2 implants, 1 bridge on bottom Gout hx of Hyperlipidemia Hypertension Visual impairment contacts/readers Past Surgical History: Procedure Laterality Date COLONOSCOPY KNEE ARTHROSCOPY Right WISDOM TOOTH EXTRACTION 6 Clicks: Basic Mobility Turning from your back to your side while in a flat bed without using bed rails?: A little Moving from lying on your back to sitting on side of flat bed without using bed rails?: A little Moving to and from bed to a chair (including w/c)?: A little Standing up from a chair using your arms (e.g. w/c or bedside chair)?: A little To walk in hospital room?: A little Climbing 3-5 steps with a railing?: A little Scoring 6 Clicks: Basic Mobility Raw Score: 18 CMS G Code Modifier: CK 10/20/25 1300 LE Supine LE supine exercises performed? Yes Ankle pumps x Gluteal sets x Quad sets x Supine heel slides x Hip abduction x Short arc quads x Leg raises x LE Seated LE seated exercises performed? Yes Ankle pumps x Long arc quads x Seated marching x Assessment Patient Assessment Patient Response to Treatment: Progressing toward goals, Improving as expected Visit RN Communication: Yes Medical Record Reviewed: Yes PT Type of Visit: Treatment Pain Assessment Pain Assessment: No/denies pain Pain Score: 0 Bed Mobility Sit to Supine: Stand by assist Activity Tolerance Other: tolerating bed mobility, seated and supine le exs Plan Physical Therapy Care Plan Physical Therapy Care Plan (Active) Template: PT - Physical Therapy Problem: Gait Dates: Start: 10/20/25 Disciplines: PT Goal: Patient will perform gait with Contact Guard Dates: Start: 10/20/25 Expected End: 11/03/25 Description: With_RW for 200 feet Goal Description: Disciplines: PT Problem: Standing Balance Dates: Start: 10/20/25 Disciplines: PT Goal: Other sitting and standing balance goal (customize) Dates: Start: 10/20/25 Expected End: 11/03/25 Description: Goal Description: patient will demonstrate good static standing for further safety with functional mobility Disciplines: PT Problem: Strength Dates: Start: 10/20/25 Disciplines: PT Goal: Improve strength Dates: Start: 10/20/25 Expected End: 11/03/25 Description: Of extremity/ location: left LE to 4/5 To facilitate: mobility Disciplines: PT Outcomes Date/Time User Outcome 10/20/25 1334 Nataly Madrigal PTA Progressing Goal note from Hospital Encounter 08/10/2025 by Nataly Madrigal PTA Evaluation of progress towards goal: Problem: Transfers Dates: Start: 10/20/25 Disciplines: PT Goal: Patient will perform transfers with Contact Guard Dates: Start: 10/20/25 Expected End: 11/03/25 Description: Goal Description: Disciplines: PT Physical Therapy Care Plan (Resolved) There are no resolved problems. Principal Problem: Primary osteoarthritis of left hip Cosigned by Ladonna Matthews PT at 10/20/2025 3:00 PM EST Associated attestation - Ladonna Matthews PT - 10/20/2025 3:00 PM EST I have reviewed and agree with this note and education documentation for this visit. * PT/OT/CONNIE CLEANER - Ladonna Matthews PT - 10/20/2025 1:30 PM EST Physical Therapy Evaluation Discharge Recommendations for Safe Patient Transition PT Discharge Disposition Recommendation: Home PT Home Recommendations: Intermittent caregiver support for: (post-op needs) PT Therapy Recommendations: Home Physical Therapy Patient is a 55 year old male who was admitted s/p left anterior KAYLAH 10/20/[address] Charisma Crow.. Patient is WBAT left LE post-op. Past Medical History: Diagnosis Date Arthritis osteo- here for workup for pending left KAYLAH Borderline diabetes Dental disease 2 implants, 1 bridge on bottom Gout hx of Hyperlipidemia Hypertension Visual impairment contacts/readers Past Surgical History: Procedure Laterality Date COLONOSCOPY KNEE ARTHROSCOPY Right WISDOM TOOTH EXTRACTION 6 Clicks: Basic Mobility Turning from your back to your side while in a flat bed without using bed rails?: A little Moving from lying on your back to sitting on side of flat bed without using bed rails?: A little Moving to and from bed to a chair (including w/c)?: A little Standing up from a chair using your arms (e.g. w/c or bedside chair)?: A little To walk in hospital room?: A little Climbing 3-5 steps with a railing?: A little Scoring 6 Clicks: Basic Mobility Raw Score: 18 CMS G Code Modifier: CK Co-evaluation with occupational therapy. Therapy Plan Need for skilled Physical Therapy to address deficits in functional mobility due to a status decline resulting from anterior KAYLAH PT Treatment/Interventions: Functional transfer training, LE strengthening/ROM, Balance, Bed mobility, Gait training PT Frequency: 6-7days/week, Twice a Day PT Duration: 7 visits Assessment Patient Assessment Therapy Problem List: Decreased balance, Decreased mobility, Decreased LE strength Patient Response to Treatment: Tolerated evaluation without adverse reaction Mood/Affect: Appropriate for circumstances Rehab Prognosis: Good, With continued PT status post acute discharge Visit RN Communication: Yes Medical Record Reviewed: Yes PT Type of Visit: Evaluation Precautions Activity: Up as tolerated with assist Weight Bearing Status: WBAT L LE Pain Assessment Pain Assessment: No/denies pain Pain Score: 0 Home Living Type of Home: House Home Layout: Two level Stairs to Enter: 2 Hand Rails: (single railing) Stairs in Home: 14- has chair lift to second level Bathroom Shower/Tub: Walk-in shower Bathroom Toilet: Raised Bathroom Equipment: Shower chair Home Equipment: Rolling walker (delivered this date) Prior Function Lives With: Spouse, Other (Comment) ([id number]) Receives Help From: Family Level of Mobility: Independent with ADLs and functional transfers or gait Homemaking Assistance: Independent Hearing / Speech / Vision Hearing: Within Functional Limits Speech: Within Functional Limits Current Vision: Wears contacts Cognition Overall Cognitive Status: Within Functional Limits Sensation Overall Sensation Status: Exceptions to Within Functional Limits Other: tingling to bilateral feet Bed Mobility Supine to Sit: Contact guard assist Sit to Supine: Contact guard assist Other: sat at the edge of the bed for 10 mins with CGA Transfers Sit to Stand: Contact guard assist Stand to Sit: Contact guard assist Other: verbal cues for safe hand placement Gait Base of Support: Within Functional Limits Pattern: Decreased shelbi Gait Assistance: Contact guard assist Assistive Device: Rolling walker Gait Distance: 100 feet Stair Management Technique: Two rails, Step to pattern (cues for sequencing) Stair Management Assistance: Contact guard assist Number of Stairs: 2 Balance Balance Evaluation: Exceptions to Functional Limits Sitting Balance: Static: Good Sitting Balance: Dynamic: Good Standing Balance: Static: Good Standing Balance: Dynamic: Good (good -) RLE Assessment: Within Functional Limits LLE Assessment: Exceptions to WFL LLE Strength L Hip Flexion: 3-/5 L Hip ABduction: 3-/5 L Knee Flexion: 3-/5 L Knee Extension: 3-/5 L Ankle Dorsiflexion: 3/5 L Ankle Plantar Flexion: 3/5 Activity Tolerance Endurance: Tolerates <30 minutes activity WITHOUT vital sign changes Plan Physical Therapy Care Plan Physical Therapy Care Plan (Active) Template: PT - Physical Therapy Problem: Gait Dates: Start: 10/20/25 Disciplines: PT Goal: Patient will perform gait with Contact Guard Dates: Start: 10/20/25 Expected End: 11/03/25 Description: With_RW for 200 feet Goal Description: Disciplines: PT Problem: Standing Balance Dates: Start: 10/20/25 Disciplines: PT Goal: Other sitting and standing balance goal (customize) Dates: Start: 10/20/25 Expected End: 11/03/25 Description: Goal Description: patient will demonstrate good static standing for further safety with functional mobility Disciplines: PT Problem: Strength Dates: Start: 10/20/25 Disciplines: PT Goal: Improve strength Dates: Start: 10/20/25 Expected End: 11/03/25 Description: Of extremity/ location: left LE to 4/5 To facilitate: mobility Disciplines: PT Problem: Transfers Dates: Start: 10/20/25 Disciplines: PT Goal: Patient will perform transfers with Contact Guard Dates: Start: 10/20/25 Expected End: 11/03/25 Description: Goal Description: Disciplines: PT Physical Therapy Care Plan (Resolved) There are no resolved problems. Principal Problem: Primary osteoarthritis of left hip * PT/OT/CONNIE CLEANER - Clara Luu OTR/L - 10/20/2025 1:23 PM EST Occupational Therapy Evaluation Discharge Recommendations for Safe Patient Transition OT Discharge Disposition Recommendation: Home OT Home Recommendations: Intermittent caregiver support for: (post op ADL and IADL Needs) OT Therapy Recommendations: Home Occupational Therapy, Home Physical Therapy Current Impairments Informing Therapy Recommendation: ADL status, Ambulation status/safety Patient is a 55 year old male that is s/p left total hip replacement (anterior) by Dr. Charisma Crow. Patient is WBAT L LE with RW at post op. 6 Clicks: Daily Activity Putting on and taking off regular lower body clothing?: A little Bathing (including washing, rinsing, drying)?: A little Toileting, which includes using toilet, bedpan or urinal?: A little Putting on and taking off regular upper body clothing?: A little Taking care of personal grooming such as brushing teeth?: A little Eating meals?: None Scoring Daily Activity Raw Score: 19 CMS G Code Modifier: CK Past Medical History: Diagnosis Date Arthritis osteo- here for workup for pending left KAYLAH Borderline diabetes Dental disease 2 implants, 1 bridge on bottom Gout hx of Hyperlipidemia Hypertension Visual impairment contacts/readers Past Surgical History: Procedure Laterality Date COLONOSCOPY KNEE ARTHROSCOPY Right WISDOM TOOTH EXTRACTION Therapy Plan Need for skilled Occupational Therapy to address deficits in ADL independence and functional mobility due to a status decline resulting from current medical status. OT Treatment/Interventions: ADL retraining, Functional transfer training, Equipment eval/education,Balance OT Frequency: 1-2days/week OT Duration: 3 visits Assessment Patient Assessment Therapy Problem List: Decreased ADL status, Decreased balance, Decreased mobility, Decreased high-level ADLs Patient Response to Treatment: Tolerated evaluation without adverse reaction Mood/Affect: Appropriate for circumstances Rehab Prognosis: Good, With continued OT status post acute discharge Visit RN Communication: Yes Medical Record Reviewed: Yes OT Type of Visit: Evaluation Precautions Activity: Up as tolerated with assist Weight Bearing Status: WBAT L LE Other: Anterior Hip replacement Pain Assessment Pain Assessment: No/denies pain Home Living Type of Home: House Home Layout: Two level Stairs to Enter: 2 Hand Rails: (single hand rail) Stairs in Home: 14- has chair lift to 2nd level Bathroom Shower/Tub: Walk-in shower Bathroom Toilet: Raised Bathroom Equipment: Shower chair Home Equipment: Rolling walker (walker delivered this day) Prior Function Lives With: Spouse (mother in law) Receives Help From: Family Level of Mobility: Independent with ADLs and functional transfers or gait Homemaking Assistance: Independent ADL / IADL Eating Assistance: Setup Grooming Assistance: Setup Bathing/Showering Assistance: Min assist Toilet/Commode Assistance: Min assist (Educucated on body positioning and RW use. Techniques to encourage out put after surgery) UE Dressing Assistance: Setup LE Dressing Assistance: Min assist (Educated on LB dressing techniques and equipment available at post op for ease and independence) Footwear Assistance: Min assist Hearing / Speech / Vision Hearing: Within Functional Limits Speech: Within Functional Limits Current Vision: Wears contacts Cognition Overall Cognitive Status: Within Functional Limits Sensation Overall Sensation Status: Exceptions to Within Functional Limits (decreased sensation B LE's post op) Bed Mobility Supine to Sit: Stand by assist Transfers Sit to Stand: Contact guard assist Stand to Sit: Contact guard assist Other: verbal cues for safety Gait Gait Assistance: Contact guard assist Assistive Device: Rolling walker Balance Sitting Balance: Static: Good Sitting Balance: Dynamic: Good Standing Balance: Static: Good Standing Balance: Dynamic: Fair RUE Assessment: Within Functional Limits LUE Assessment: Within Functional Limits Activity Tolerance Endurance: Tolerates <30 minutes activity WITHOUT vital sign changes Plan Occupational Therapy Care Plan Occupational Therapy Care Plan (Active) Template: OT - Occupational Therapy Problem: Dressing LB Dates: Start: 10/20/25 Disciplines: OT Goal: Patient will perform dressing LB with Modified Gibbs Dates: Start: 10/20/25 Expected End: 10/22/25 Description: Goal Description: Disciplines: OT Problem: Functional Mobility Dates: Start: 10/20/25 Disciplines: OT Goal: Patient will perform functional mobility with Modified Gibbs Dates: Start: 10/20/25 Expected End: 10/22/25 Description: Goal Description: Disciplines: OT Problem: Standing Balance Dates: Start: 10/20/25 Disciplines: OT Goal: Improve balance to good Dates: Start: 10/20/25 Expected End: 10/22/25 Description: Static Dynamic Disciplines: OT Problem: Toilet Transfers Dates: Start: 10/20/25 Disciplines: OT Goal: Patient will perform toilet transfers with Modified Gibbs Dates: Start: 10/20/25 Expected End: 10/22/25 Description: Goal Description: Disciplines: OT Problem: Toileting Dates: Start: 10/20/25 Disciplines: OT Goal: Patient will perform toileting with Modified Gibbs Dates: Start: 10/20/25 Expected End: 10/22/25 Description: Goal Description: Disciplines: OT Problem: Transfers Dates: Start: 10/20/25 Disciplines: OT Goal: Patient will perform transfers with Modified Gibbs Dates: Start: 10/20/25 Expected End: 10/22/25 Description: Goal Description: Disciplines: OT Occupational Therapy Care Plan (Resolved) There are no resolved problems. Principal Problem: Primary osteoarthritis of left hip * Discharge Planning Note - Rhonda Painter - 10/20/2025 10:04 AM EST DISCHARGE PLANNING NOTE CRF and referral sent to [facility] P# ; F# [facility]erral sent to [facility] * Op Note - Charisma Crow MD - 10/20/2025 7:30 AM EST Total Hip Operative Report NAME: Dmitri Pelletier : 1970 PROCEDURE DATE: 10/20/2025 Surgeon: Surgeons and Role: * Charisma Crow MD - Primary Assistants: Issa Gruber PAC Staff: Sports Centre Manager Primary: Mel Osuna RN Rounding Machine Tender: BECKIE Moreno Scrub Person: ST Joanie Stage Hand: Ami Molina RNradiotelephone technical operator PA: LETI Vanegas Pre-op Diagnosis: Primary osteoarthritis of left hip [M16.12] Post-op Diagnosis: same Procedure: Procedure(s): REPLACEMENT TOTAL JOINT HIP ANTERIOR SUPINE INTERMUSCULAR (Left) - Wound Class: Clean - Incision Closure: Deep and Superficial Layers Anesthesia Type: Monitored Anesthesia Care, Spinal Estimated Blood Loss: * No values recorded between 10/20/2025 7:30 AM and 10/20/2025 8:38 AM * Total IV Fluids: See anestheisa record Drains: none Specimens: none Complications: none Implants: Biomet G7 acetabular shell, limited hole 56 mm diameter, G7 acetabular liner, Taperloc Microplasty femoral stem 12 mm high offset type 1 taper, ceramic femoral head 36 mm diameter, -6mm neck. Additions (Drains, Specimens, Implants): Implants: Implant Name Type Inv. Item Serial No. Neuropsychology Director Lot No. LRB No. Used Action SHELL ACTB 56MM HIP LMT HL CLR CD PPS G7 F HMSPHR - [id number] Orthopedic Implant SHELL ACTB 56MM HIP LMT HL CLR CD PPS G7 F HMSPHR [employer]ella [employer] [id number] Left 1 Implanted LINER ACTB 36MM F VIVACIT-E LUM G7 HIP STRL LF - [id number] Orthopedic Implant LINER ACTB 36MM F VIVACIT-E LUM G7 HIP STRL LF [employer] [id number] Left 1 Implanted HEAD FEM 36MM G7 BLX D BIOLOX OPT HIP RPL 650-1057 - [id number] Orthopedic Implant HEAD FEM 36MM G7BLX D BIOLOX OPT HIP RPL 650-1057 [employer] [id number] Left 1 Implanted STEM FEM 109MM 12MM 133D HI OS TPR TPRLK MICROPLASTY PPS TI - [id number] Orthopedic Implant STEM FEM 109MM 12MM 133D HI OS TPR TPRLK MICROPLASTY PPS TI [employer] [id number] Left 1 Implanted SLEEVE HIP -6MM OS TPR G7 BLX D OPT TI CENTERING TY 1 RPL 650-1064 - [id number] Orthopedic Implant SLEEVE HIP -6MM OS TPR G7 BLX D OPT TI CENTERING TY 1 RPL 650-1064 [employer] [id number] Left 1 Implanted Indications and Consent: This is a pleasant 55 year-old patient diagnosed with end-stage arthritis of the hip. The patient exhausted nonoperative treatment and was indicated for the aforementioned procedure. Risks, benefits, alternatives, and possible complications were discussed with the patient. They stated they understood these and decided to proceed with the operation. A writteninformed consent was signed prior to the procedure. Report of Operation: Patient was brought to the operating room placed in the supine position. Spinal anesthesia administered and antibiotics infused. Traction boots were placed and the patient was carefully transferred to the hana table in supine standard position. Both lower extremities had been placed in well-padded boots, which were then affixed to the table. The legs were placed in slight hip flexion and internalrotation. Timeout was performed. The left lower extremity was prepped and draped in the usual sterile fashion. An anterior heuter approach was made through a 9 cm incision that was carried down to skin and subcutaneous tissue. Tensor fascia was identified and incised sharply. An Allis clamp was placed on the anterior tensor fascia, and the tensor and rectus interval was then bluntly dissected along the medial border of the tensor. A Cobra retractor was placed distal and lateral to the anterior inferior iliac spine superior to the lateral femoral neck. A small rent was made underneath the iliocapuslaris and another Cobra retractor was placed medial to the femoral neck. A bernabe retractor was used more distally to help retract some of the rectus femoris medially. The anterior hip capsule was thus easily exposed at this point. We then directed our attention to lateral femoral circumflex vessels, whichwere identified and cauterized with the Bovie electrocautery. The fascia over the vastus lateralis was superficially released with a Metzenbaum scissors. An L capsulotomy of the iliofemoral ligament of the capsule was performed and the capsule was takenoff the intertrochanteric line in an inside-out fashion. The medial and lateral neck capsules were then tagged #1 Vicryl suture with opposing colors. The cobra retractors were then placed within the capsule. We released some of the pubofemoral ligament medially as we slightly externally rotated thefemur at this point. The leg was then brought back to neutral. The femoral neck cut was then made according to the preoperative template using oscillating saw and completed with an osteotome laterally. Corkscrew was placed in the femoral head and the femoral head easily removed as the posterior capsule was released off of the femoral head with the Bovie. We then replaced our cobra retractor alongthe posterior aspect of the acetabulum and switched out our other retractors for 120 degree bent Hohmann on the anterior rim of the acetabulum. There were significant degenerative changes with cartilage wear and osteophyte formation. The labrum and pulvinar were excised with a long handle knife and Bovie electrocautery. Fluoroscopy was then used to confirm level pelvis. Sequential acetabular reaming was done using fluoroscopy to a size 55 mm reamer. A 56 mm Biomet G7 acetabular cup was then fully seated in the acetabulum under fluoroscopic guidance. The abduction/anteversion of the cup was deemed satisfactory both fluoroscopically and clinically with direct visualization. Next the polyethylene liner was placed and attention was turned towards femoral preparation. The hook was then placed under the proximal femur. The femur was externally rotated to approximately 110??, hyperextended, and adducted with the gross traction removed. The hook brought the femur forward and protected the tensor. Henao retractor was placed on the posterior medial neck, as well asour 120 degree bent Hohmann between the capsule and the abductors. The lateral neck capsule was then dissected away from the rotators without releasing them. The 120 degree Hohmann over the tip of the greater trochanter. Sequential femoral broaching was then performed up to size 12 . A trial reduction was carried out with a high offset neck and 36 mm head -6mm neck, which showed excellent spiritism of leg length and off set. Intraoperative fluoroscopy and comparison to contralateral side confirm satisfactory length and offset. The hip was then dislocated, and trial components removed. The final Biomet high offset size 12 stem was fully seated in the canal with optimal version. Segundo taperwas cleaned and dried and the final ceramic femoral head 36mm diameter -6mm neck was impacted and confirmed to be secure. The cup was irrigated and the hip was easily reduced with internal rotation and traction. Final intra operative fluoroscopic views were taken and showed satisfactory reduction with no fracture. The wound was then copiously irrigated with normal saline/bacitracin solution and diluted betadine. Standard total hip pain solution was infiltrated in the pericapsular tissues. The tensor fascia was then closed with a running 2- 0 Vicryl suture. The skin was closed with 2-O Vicryl suture, followed by a 4-0 Monocryl in a running subcuticular fashion. Sterile dressing was applied. All sponge and needle counts were correct at the end the procedure were correct x 2. The physician elementary assistant teacher if listed as the front desk assistant was present for the entire procedure and assisted with patient positioning, draping, leg positioning, hemostasis, retraction, dislocation of the hip, reductionof the hip, irrigation of bone and soft tissue, assistance with deep and superficial wound closure,and transfer of patient to and from operating table. The patient awoke from anesthesia without complication and was transferred to the post anesthesia care unit in stable condition. Patient Dmitri Pelletier has undergone total joint replacement surgery today and will require the use of a wheeled walker for activities of daily living. Use of a cane has been ruled out. CHARISMA CROW MD * Discharge Planning Note - SMITHA Vuong - 10/14/2025 12:52 PM EST Spoke with patient on the phone today regarding upcoming left total hip replacement with Dr Cathy Crow on 10/20. Patient is planning [facility]. Referral sent to [facility] and accepted. Will need CRF on day of surgery for [facility]NR[facility] to send. Added to AVS. Patient will need a 2 wheeled rolling walker (DME). Patient has adequate support to help after surgery (spouse). No further intervention at this time. Plan of Care: [facility] [phone] or [phone] fax CRF at Discharge documented in this encounter Plan of Treatment DateTypeDepartmentCare Team (Latest Contact Info)Zwfnofhiibx54/02/2026 8:30 AM ESTOffice Visit [facility] [address] [place] [address] Veronica Pimentel PA-C [address], [address] [place] [address] documented as of this encounter Goals GoalPatient Goal TypeAssociated ProblemsRecent ProgressPatient-Stated?Author Autogenerated Goal Care PlanAutogenerated ProblemNoSchroeder, Allisondocumented as of this encounter Procedures Procedure NamePriorityDate/TimeAssociated DiagnosisCommentsXR PELVIS 1 OR 2 VWS STAT112/21/2024 9:27 AM EST XR HIP LT 1 VIEW W OR WO SRBQGGZdysbfi43/17/2025 8:44 AM EST CA TOTAL HIP QIPFFEALLGWP14/17/2025 7:30 AM EST Primary osteoarthritis of left hip Special Needs BIOMET BEDSIDE XSNWEVRNnphlvr55/17/2025 6:47 AM EST documented in this encounter Results * X-ray pelvis 1 or 2 views (10/20/2025 9:27 AM EST)Anatomical RegionLaterality ModalityMSK, PelvisN/AComputed RadiographySpecimen (Source)Anatomical Location / LateralityCollection Method / VolumeCollection TimeReceived Time10/20/2025 9:32 AM EST Narrative 10/20/2025 9:32 AM EST History: s/p left anterior KAYLAH Exam/Technique: AP view pelvis Comparison: Preoperative x-ray 10/18/2025 Findings: There are satisfactory surgical changes of left hip arthroplasty with satisfactory gross alignment and no gross hardware failure or loosening. The remaining osseous exam is unremarkable IMPRESSION: Satisfactory post surgical changes Finalized by Patricia Hanks MD on 10/20/2025 9:32 AM Procedure Note Patricia Hanks MD - 10/20/2025 History: s/p left anterior KAYLAH Exam/Technique: AP view pelvis Comparison: Preoperative x-ray 10/18/2025 Findings: There are satisfactory surgical changes of left hip arthroplasty with satisfactory gross alignment and no gross hardware failure or loosening.The remaining osseous exam is unremarkable IMPRESSION: Satisfactory post surgical changes Finalized by Patricia Hanks MD on 10/20/2025 9:32 AM Authorizing ProviderResult TypeResult StatusCraig P Assjaymacher PADGETTIMG DIAGNOSTIC IMAGING ORDERABLESFinal Result * X-ray hip left 1 view with or without pelvis (10/20/2025 8:44 AM EST) Anatomical RegionLateralityModalityLower Extremities, MSK, HipLeftRadio FluoroscopySpecimen (Source)Anatomical Location / LateralityCollection Method / VolumeCollection TimeReceived Time10/20/2025 9:21 AM EST Narrative 10/20/2025 9:21 AM EST XR HIP LT 1 VIEW W OR WO PELVIS HISTORY: Surgery. COMPARISON: None. IMPRESSION: Reference air kerma 3.9 mGy. Fluoroscopic guidance provided. Please see details within procedural/operative note. ?? Finalized by Nilton Parrish MD on 10/20/2025 9:21 AM Procedure Note Nilton Parrish MD - 10/20/2025 XR HIP LT 1 VIEW W OR WO PELVIS HISTORY: Surgery. COMPARISON: None. IMPRESSION: Reference air kerma 3.9 mGy. Fluoroscopic guidance provided. Please seedetails within procedural/operative note. Finalized by Nilton Parrish MD on 10/20/2025 9:21 AM Authorizing ProviderResult TypeResult StatusCraig P Assjaymacher PADGETTIMG DIAGNOSTIC IMAGING ORDERABLESFinal Result * Bedside Glucose *Place/Obtain serum glucose if >500 per glucometer. (10/20/2025 6:47 AM EST)ComponentValueRef RangeTest MethodAnalysis Time Performed AtPathologist SignatureBedside Glucose (POC)9465 - 99 mg/dL 10/20/2025 6:52 AM ESTSAINT BARNABAS BEHAVIORAL HEALTH CENTERpecimen (Source)Anatomical Location / LateralityCollection Method / VolumeCollection TimeReceived Time arterial//17/2025 6:47 AM EST10/20/2025 6:52 AM EST Narrative Authorizing ProviderResult TypeResult StatusCraig P Assenmacher MDPOINT OF CARE TEST ORDERABLESFinal ResultPerforming OrganizationAddressCity/State/ZIP Code Phone Number [facility] [address] [place] [address], documented in this encounter Visit Diagnoses Diagnosis Primary osteoarthritis of left hip- Primary Primary osteoarthritis of left hip documented in this encounter Admitting Diagnoses Diagnosis Primary osteoarthritis of left hip documented in this encounter Administered Medications Medication OrderMAR ActionAction DateDoseRateSite ceFAZolin (ANCEF) IVPB 2000 mg/50 mL in iso-osmotic dextrose (40 mg/mL premix) 2,000 mg, intravenous, at 100 mL/hr, Administer over 30 Minutes, Once, On Sat10/20/25 at 1300, For1 dose, Pharmacy to adjust per renal function; Start 5 hours after pre-op dose for total of 2 dosesincluding pre-op dose. For patient less than 120 kg. Look-alike/sound-alike medication - verify indication for use., Indication: Surgical prophylaxis New 10/20/2025 12:53 PM EST2,000 mg100 mL/hr celecoxib (CeleBREX) capsule 200 mg 200 mg, oral, Once, On Sat10/20/25 at 0615, For 1 dose, Pre-op, If without allergy to non-steroidal anti-inflammatory drugs (NSAID). Hold for patients 80 years of age or older. Look-alike/sound-alike medication - verify indication for use. Indications:Primary osteoarthritis of left hfcStpkk12/17/2025 6:42 AM ZFU455 mg dexAMETHasone (DECADRON) IVPB 40 mg in NS 100 mL 40 mg, intravenous, at 400 mL/hr, Administer over 15 Minutes, Once, On Sat10/20/25 at 0615, For 1 dose, Pre-op, Over 15 minutes. Hold for blood glucose greater than 200. May alter blood glucose or insulin requirements. Look-alike/sound-alike medication - verify indication for use. Indications:Primary osteoarthritis of left hipNew 10/20/2025 6:15 AM EST40 mg 400 mL/hr fentaNYL (SUBLIMAZE) injection 25 mcg 25 mcg, intravenous, Every 5 min PRN, Pain Scale 1-5, Starting on Sat10/20/25 at 0846, PACU (only), Up to a maximum dose of 150 mcg. Look-alike/sound-alike medication - verify indication for use. fentaNYL (SUBLIMAZE) injection 50 mcg 50 mcg, intravenous, Every 5 min PRN, Pain Scale 6-10, Starting on Sat10/20/25 at 0846, PACU (only), Up to a maximum dose of 150 mcg. Look-alike/sound-alike medication - verify indication for use. gabapentin (NEURONTIN) tablet 300 mg 300 mg, oral, Once, On Sat10/20/25 at 0615, For 1 dose, Pre-op, Give 2 hours prior to incision. Pharmacy may adjust per renal function. NOT to be initiated in patients with a history of seizures OR with a known seizure disorder Look-alike/sound-alike medication - verify indication for use. Indications:Primary osteoarthritis of left uijPfsna38/17/2025 6:15 AM LPI829 mg hydrALAZINE (APRESOLINE) injection 5 mg 5 mg, intravenous, Every 10 min PRN, high blood pressure, systolic blood pressure greater than 160 mmHg, Starting on Sat10/20/25 at 0846, PACU (only), Maximum dose of hydrALAZINE (APRESOLINE) is 20 mg while in PACU Look-alike/sound-alike medication - verify indication for use. Administer IV doses as a slow IV push; maximum rate: 5 mg/minute. HYDROmorphone (DILAUDID) injection 0.25 mg 0.25 mg, intravenous, Every 5 min PRN, Pain Scale 1-5 if pain not controlled by fentanyl, Starting on Sat10/20/25 at 0846, PACU (only), Up to a maximum of 1.5 mg Look-alike/sound-alike medication - verify indication for use. HYDROmorphone (DILAUDID) injection 0.5 mg 0.5 mg, intravenous, Every 5 min PRN, for Pain Scale 6-10 if pain not controlled by fentanyl, Starting on Sat10/20/25 at 0846, PACU (only), Up to a maximum of 1.5 mg Look-alike/sound-alike medication - verify indication for use. labetaloL (NORMODYNE,TRANDATE) injection 5 mg 5 mg, intravenous, Every 5 min PRN, high blood pressure, systolic blood pressure greater than 160 mmHg and heart rate greater than 60 beats per minute, Starting on Sat10/20/25 at 0846, PACU (only), Maximum dose of labetalol (TRANDATE) is 20 mg while in PACU Look-alike/sound-alike medication - verify indication for use. lactated ringers infusion 150 mL/hr, intravenous, Continuous, Starting on Sat10/20/25 at 0615, Pre-op, If fluid restriction is not indicated, infuse at a rate up to 5 mL/kg/hr not to exceed the total replacement volume (2 ml/kg/hr) from the time NPO status was initiated. Sfseluzbd99/17/2025 8:51 AM ESTContinued by Xmvowguwxs89/17/2025 7:10 AM ZLT142 mL/hrNew Bag10/20/2025 6:43 AM UIE198 mL/hr150 mL/hr lactated ringers infusion 100 mL/hr, intravenous, Continuous, Starting on Sat10/20/25 at 0900, PACU (only) midazolam (VERSED) injection 2 mg 2 mg, intravenous, As needed, anxiety, Starting on Sat10/20/25 at 0612, Pre-op, May repeat in 10 minutes, if needed, if original midazolam (VERSED) ineffective, Indication: Other, Indication: anxiety Given10/20/2025 7:40 AM EST1 rkNibyb5810/20/2025 7:08 AM EST2 mg naloxone (NARCAN) injection 0.1 mg 0.1 mg, intravenous, As needed, respiratory depression, Starting on Sat10/20/25 at 0846, For 4 doses, PACU (only), Maximum dose: 0.4 mg Look-alike/sound-alike medication - verify indication for use. oxyCODONE (ROXICODONE) immediate release tablet 10 mg 10 mg, oral, Every 4 hours PRN, severe pain - pain scale 7-10, Starting on Sat10/20/25 at 1218, The oral route is preferred for patients tolerating oral intake without nausea and vomiting. IV pain medications should be used if the oral route is ineffective for symptom control or if patient unable to take medications orally. Look-alike/sound-alike medication - verify indication for use. Immediaterelease. Given10/20/2025 2:39 PM EST10 mg oxyCODONE (ROXICODONE) immediate release tablet 5 mg 5 mg, oral, Every 4 hours PRN, moderate pain - pain scale 4-6, Starting on Sat10/20/25 at 1218, The oral route is preferred for patients tolerating oral intake without nausea and vomiting. IV pain medications should be used if the oral route is ineffective for symptom control or if patient unable to take medications orally. Look-alike/sound-alike medication - verify indication for use. Immediaterelease. tranexamic acid (LYSTEDA) tablet 1,950 mg 1,950 mg, oral, 30 min pre-op, On Sat10/20/25 at 0615, For 1 dose, Pre-op, Administer 30 minutes prior to surgery Indications:Primary osteoarthritis of left vimWrkog14/17/2025 6:42 AM EST1,950 mgdocumented in this encounter Active and Recently Administered Medications Times are shown in EST.Medication Order/ ceFAZolin (ANCEF) 1,000 mg, EPINEPHrine (ADRENALIN) 0.3 mg, morphine 10 mg, ketorolac (TORADOL) 15 mg, bupivacaine PF (MARCAINE) 0.5 % (5 mg/mL) 150 mg in sodium chloride 0.9 % 60 mL irrigation (COMPLETED) intra-articular, Once, On Sat10/20/25 at 0730, For 1 dose, Intra-op, IRRIGATION USE ONLY Look-alike/sound-alike medication - verify indication for use. * 0730 (Due) * 0833 (Given - Provider: LETI Vanegas) ceFAZolin (ANCEF) IVPB 2000 mg/50 mL in iso-osmotic dextrose (40 mg/mL premix) (COMPLETED) 2,000 mg, intravenous, at 100 mL/hr, Administer over 30 Minutes, Once, On Sat10/20/25 at 0615, For1 dose, Pre-op, Initiate within 1 hour prior to incision; for weight less than 120 kg. Look-alike/sound-alike medication - verify indication for use., Indication: Surgical prophylaxis * 0737 (Given - Provider: MARLIN Powell) * 0752 (Stop Bag - Provider: MARLIN Powell) ceFAZolin (ANCEF) IVPB 2000 mg/50 mL in iso-osmotic dextrose (40 mg/mL premix) (COMPLETED) 2,000 mg, intravenous, at 100 mL/hr, Administer over 30 Minutes, Once, On Sat10/20/25 at 1300, For1 dose, Pharmacy to adjust per renal function; Start 5 hours after pre-op dose for total of 2 dosesincluding pre-op dose. For patient less than 120 kg. Look-alike/sound-alike medication - verify indication for use., Indication: Surgical prophylaxis * 1253 (New Bag - Provider: Tia Schwartz RN) * 1323 (Due: Stop Bag - Provider: Tia Schwartz RN) celecoxib (CeleBREX) capsule 200 mg (COMPLETED) 200 mg, oral, Once, On Sat10/20/25 at 0615, For 1 dose, Pre-op, If without allergy to non-steroidal anti-inflammatory drugs (NSAID). Hold for patients 80 years of age or older. Look-alike/sound-alike medication - verify indication for use. * 0642 (Given - Provider: Michelle Cohn RN) dexAMETHasone (DECADRON) IVPB 40 mg in NS 100 mL (COMPLETED) 40 mg, intravenous, at 400 mL/hr, Administer over 15 Minutes, Once, On Sat10/20/25 at 0615, For 1 dose, Pre-op, Over 15 minutes. Hold for blood glucose greater than 200. May alter blood glucose or insulin requirements. Look-alike/sound-alike medication - verify indication for use. * 0615 (New Bag - Provider: Michelle Cohn RN) * 0630 (Due: Stop Bag - Provider: Michelle Cohn RN) gabapentin (NEURONTIN) tablet 300 mg (COMPLETED) 300 mg, oral, Once, On Sat10/20/25 at 0615, For 1 dose, Pre-op, Give 2 hours prior to incision. Pharmacy may adjust per renal function. NOT to be initiated in patients with a history of seizures OR with a known seizure disorder Look-alike/sound-alike medication - verify indication for use. * 0615 (Given - Provider: Michelle Cohn RN) tranexamic acid (LYSTEDA) tablet 1,950 mg (COMPLETED) 1,950 mg, oral, 30 min pre-op, On Sat10/20/25 at 0615, For 1 dose, Pre-op, Administer 30 minutes prior to surgery * 0642 (Given - Provider: Michelle Cohn RN) Medication Order/ lactated ringers infusion (CANCELED) 150 mL/hr, intravenous, Continuous, Starting on Sat10/20/25 at 0615, Pre-op, If fluid restriction is not indicated, infuse at a rate up to 5 mL/kg/hr not to exceed the total replacement volume (2 ml/kg/hr) from the time NPO status was initiated. * 0643 (New Bag - Provider: Michelle Cohn RN) * 0710 (Continued by Anesthesia - Provider: MARLIN Powell) * 0850 (Paused - Provider: MARLIN Powell - Comment: Switch to gravity) * 0851 (Restarted - Provider: MARLIN Powell) * 1155 (Due: Order Ending - Provider: Automatic Transfer Provider - Comment: [Order ends at this time. Document the following action when infusion is complete: Stop Bag]) lactated ringers infusion 100 mL/hr, intravenous, Continuous, Starting on Sat10/20/25 at 0900, PACU (only) * 0900 (Due) Medication Order/ fentaNYL (SUBLIMAZE) injection 25 mcg 25 mcg, intravenous, Every 5 min PRN, Pain Scale 1-5, Starting on Sat10/20/25 at 0846, PACU (only), Up to a maximum dose of 150 mcg. Look-alike/sound-alike medication - verify indication for use. fentaNYL (SUBLIMAZE) injection 50 mcg 50 mcg, intravenous, Every 5 min PRN, Pain Scale 6-10, Starting on Sat10/20/25 at 0846, PACU (only), Up to a maximum dose of 150 mcg. Look-alike/sound-alike medication - verify indication for use. hydrALAZINE (APRESOLINE) injection 5 mg 5 mg, intravenous, Every 10 min PRN, high blood pressure, systolic blood pressure greater than 160 mmHg, Starting on Sat10/20/25 at 0846, PACU (only), Maximum dose of hydrALAZINE (APRESOLINE) is 20 mg while in PACU Look-alike/sound-alike medication - verify indication for use. Administer IV doses as a slow IV push; maximum rate: 5 mg/minute. HYDROmorphone (DILAUDID) injection 0.25 mg 0.25 mg, intravenous, Every 5 min PRN, Pain Scale 1-5 if pain not controlled by fentanyl, Starting on Sat10/20/25 at 0846, PACU (only), Up to a maximum of 1.5 mg Look-alike/sound-alike medication - verify indication for use. HYDROmorphone (DILAUDID) injection 0.5 mg 0.5 mg, intravenous, Every 5 min PRN, for Pain Scale 6-10 if pain not controlled by fentanyl, Starting on Sat10/20/25 at 0846, PACU (only), Up to a maximum of 1.5 mg Look-alike/sound-alike medication - verify indication for use. labetaloL (NORMODYNE,TRANDATE) injection 5 mg 5 mg, intravenous, Every 5 min PRN, high blood pressure, systolic blood pressure greater than 160 mmHg and heart rate greater than 60 beats per minute, Starting on Sat10/20/25 at 0846, PACU (only), Maximum dose of labetalol (TRANDATE) is 20 mg while in PACU Look-alike/sound-alike medication - verify indication for use. midazolam (VERSED) injection 2 mg (CANCELED) 2 mg, intravenous, As needed, anxiety, Starting on Sat10/20/25 at 0612, Pre-op, May repeat in 10 minutes, if needed, if original midazolam (VERSED) ineffective, Indication: Other, Indication: anxiety * 0708 (Given - Provider: Michelle Cohn RN) * 0740 (Given - Provider: Jocelyne Shepherd APRN-CLINICAL STAFF EDUCATOR) naloxone (NARCAN) injection 0.1 mg 0.1 mg, intravenous, As needed, respiratory depression, Starting on Sat10/20/25 at 0846, For 4 doses, PACU (only), Maximum dose: 0.4 mg Look-alike/sound-alike medication - verify indication for use. ondansetron (PF) (ZOFRAN) injection 4 mg 4 mg, intravenous, Every 6 hours PRN, nausea, vomiting, Starting on Sat10/20/25 at 1218, Intravenous administration preferred to be given over 2-5 minutes. oxyCODONE (ROXICODONE) immediate release tablet 10 mg(Linked Group 1) 10 mg, oral, Every 4 hours PRN, severe pain - pain scale 7-10, Starting on Sat10/20/25 at 1218, The oral route is preferred for patients tolerating oral intake without nausea and vomiting. IV pain medications should be used if the oral route is ineffective for symptom control or if patient unable to take medications orally. Look-alike/sound-alike medication - verify indication for use. Immediaterelease. * 1439 (Given - Provider: Tia Schwartz RN) oxyCODONE (ROXICODONE) immediate release tablet 5 mg(Linked Group 1) 5 mg, oral, Every 4 hours PRN, moderate pain - pain scale 4-6, Starting on Sat10/20/25 at 1218, The oral route is preferred for patients tolerating oral intake without nausea and vomiting. IV pain medications should be used if the oral route is ineffective for symptom control or if patient unable to take medications orally. Look-alike/sound-alike medication - verify indication for use. Immediaterelease. * 1439 (See Alternative - Provider: Tia Schwartz RN) sodium chloride 0.9 % (bag) (NS) 0.9 % irrigation solution (CANCELED) As needed, Starting on Sat10/20/25 at 0751, Intra-op * 0751 (Given - Provider: Charisma Crow MD - Comment: PULSAVAC) sodium chloride 0.9% (NS) irrigation bottle (CANCELED) As needed, Starting on Sat10/20/25 at 0735, Intra-op * 0735 (Given - Provider: Mel Osuna RN - Comment: GIVEN TO STERILE FIELD FOR SURGEONS USE) Order Group 1: oxyCODONE (ROXICODONE) immediate release tablet 5 mgJump to med 5 mg, oral, Every 4 hours PRN, moderate pain - pain scale 4-6, Starting on Sat10/20/25 at 1218, The oral route is preferred for patients tolerating oral intake without nausea and vomiting. IV pain medications should be used if the oral route is ineffective for symptom control or if patient unable to take medications orally. Look-alike/sound-alike medication - verify indication for use. Immediaterelease. Or oxyCODONE (ROXICODONE) immediate release tablet 10 mgJump to med 10 mg, oral, Every 4 hours PRN, severe pain - pain scale 7-10, Starting on Sat10/20/25 at 1218, The oral route is preferred for patients tolerating oral intake without nausea and vomiting. IV pain medications should be used if the oral route is ineffective for symptom control or if patient unable to take medications orally. Look-alike/sound-alike medication - verify indication for use. Immediaterelease. documented in this encounter Additional Health Concerns Active ProblemsNoted DateDiagnosed DateAutogenerated Zkmpkjh7608/10/2025documented as of this encounter Care Teams Team MemberRelationshipSpecialtyStart DateEnd Date Krystian Henriquez MD [address] [address] PCP - GeneralInternal Szpcweye23/17/25documented as of this encounter
--- OUTSIDE RECORDS SUMMARY | 2025-10-20 07:10 | XMS_ITS | Encounter Summary ---
Author Organization [employer] [facility] tem Address [id number] [address] [place] [address] Care Team Providers Care Content Production Specialist Name Role Phone Krystian Henriquez MD Primary Care Provider [phone] Reason for Visit * Auth/CertSpecialtyDiagnoses / ProceduresReferred By ContactReferred To Contact Diagnoses Primary osteoarthritis of left hip Primary osteoarthritis of left hip [M16.12] Procedures RI TOTAL HIP ARTHROPLASTY REPLACEMENT TOTAL JOINT HIP ANTERIOR SUPINE INTERMUSCULAR Oneal Cordero MD [address] [place] [address] Phone: tel: fax: Referral IDStatusReasonStart DateExpiration DateVisits RequestedVisits [id number] Encounter Details DateTypeDepartmentCare Team (Latest Contact Info)Oxkwjwumqef45/17/2025 7:10 AM ESTAnesthesia Event [facility] [address] [place] [address] Gopal Mcgovern MD [address] [place] [address] Anesthesia Record Procedure NameResponsible AnesthesiologistAnesthesia Start TimeAnesthesia Stop TimeREPLACEMENT TOTAL JOINT HIP ANTERIOR SUPINE INTERMUSCULAR (Left: Hip)Gopal Mcgovern MD10/20/25 52265912/21/24 7917CnotWeivRaeesDzekihb08/17/365388459564NN Equip Oilag4205Wf Nvlwh7261Pe Start Nxec6676Cq InductionThe patient was reevaluated immediately before moderate or deep sedation use and before anesthesia induction.0738Patient Ready for Kjjllcv1731Pzsfpqkv7890yl stop data 899Transport/Transfer From the RF4258Gq Flhp0650Srfalok to RNTransported to:PACU, Spontaneous Ventilation, O2 per Nasal Cannula, 3 LPM Pt. Tolerated procedure well, vital signs stable and document on nursing record Care transferred to receiving RN* NameTotalceFAZolin (ANCEF) IVPB 2000 mg/50 mL in iso-osmotic dextrose (40 mg/mL premix)2,000 qceswnxdwckdz-hqkqofxu-ploia(PF) (MARCAINE SPINAL) 0.75 % (7.5 mg/mL) injection1.5 mLlidocaine PF (XYLOCAINE) local injection 2%100 mgpropofol (DIPRIVAN) .35 mgpropofol (DIPRIVAN) bolus bmfecumaq451 mgmidazolam (VERSED) injection 2 mg1 mgketamine injection 50 mg/5 mL (10 mg/mL) bhctrvi38 mgdexAMETHasone (DECADRON) injection 4 mg/mL4 mgondansetron PF (ZOFRAN) 2 mg/mL injection4 mgphenylephrine (DEBORAH- SYNEPHRINE) mjrwbii196 mcglactated ringers infusion1,000 mL * Agents No agents on file. * Blood No blood administrations on file. GjowSlsczfbJyfodpmitCtzorymTpjth82/17/25; 0758; Incision; Hip; Left; DRESSING APPLIED STERILY IN OR; ADHESIVE SKN CLS LIQUIBAND EXCEED OCTYL .8GM TOP STRL LF RPL [id number]+SPECIAL [id number] (x1), ADHESIVE MASTIC LIQ .67ML AMPOULE NONWATER LA RPL [id number] (x1), STRIP 5X1IN STRSTRP PLSTR REINF SKNCLS WHT STRL LF RPL 238452 (x1), DRESSING AQCL AG 10X3.5IN HDRCLD CVR LYR WTPRF BACT BRR [facility] RPL [id number] (x1)10/20/25 0758 by Mel Osuna RNPeripheral IVPlacement Date: 10/20/25; Placement Time: 0634; Catheter Size: 20 G; Orientation: Anterior, Right; Location: Forearm; Site Prep: Chlorhexadine and isopropyl alcohol; Inserted by: Michelle DOUGLAS; Removal Date: 10/20/25; Removal Time: 0634 by Michelle Cohn RN10/20/25 160 by Tia Schwartz RNdocumented in this encounter Social History Tobacco UseTypesPacks/DayYears UsedDateSmoking Tobacco: FormerCigarettes Smokeless Tobacco: CurrentSnuff Comments:Smoked for 30 years 1pk/day quit 2009 Alcohol UseStandard Drinks/QumdWjdictrhCzo02 (1 standard drink = 0.6 oz pure alcohol)ChildcareAnswerDate OjzqbqiqIdagjdzrxTtutsqh15/12/2019EmploymentAnswer Date VfzqiygsVglowrmvkeNtyxyou71/12/2019Sex and Gender InformationValueDate RecordedSex Assigned at BirthNot on fileLegal SssIrvb7806/09/2015 11:30 AM EDT Gender IdentityNot on fileSexual OrientationNot on filedocumented as of this encounter Mental Status * Vt (Set, mL)AnswerEntry WbqdRagkvz21756/17/2025 9:00 AM ESTInterface - Michele Device In documented in this encounter OR Notes * Anesthesia Postprocedure Evaluation - Gopal Mcgovern MD - 10/20/2025 9:05 AM EST ANESTHESIA POST-EVALUATION [facility] Procedure Summary Date: 10/20/25 Room / Location: [place] [address] / [facility] Anesthesia Start: 709 Anesthesia Stop: 904 Procedure: REPLACEMENT TOTAL JOINT HIP ANTERIOR SUPINE INTERMUSCULAR (Left: Hip) Diagnosis: Primary osteoarthritis of left hip (Primary osteoarthritis of left hip [M16.12]) Surgeons: Oneal Cordero MD Responsible Provider: Gopal Mcgovern MD Anesthesia Type: MAC, spinal ASA Status: 2 Vitals: 10/20/25 0905 BP: (!) 87/53 Pulse: 79 Resp: 15 Temp: 36 ??C (96.8 ??F) SpO2: 98% Patient Evaluated: PACU Patient Participation: Complete - patient participated Patient Level of Consciousness: Awake and Alert Pain Score: 0 Pain Management: Satisfactory to patient Multimodal Analgesia: multimodal analgesia used between 6 hours prior to anesthesia start to PACU discharge Airway Patency: Patent Cardiovascular Status: Hemodynamically Stable Respiratory Status: Stable/Baseline and Nonlabored Ventilation Post-op Hydration: Euvolemic Final Anesthesia Type: spinal and MAC Does patient meet criteria to D/C from PACU?: Yes Is patient sedated pharmacologically at PACU D/C?: No No notable events documented. * Anesthesia Procedure Notes - MARLIN Powell - 10/20/2025 7:53 AM ESTAssociated Order(s): Spinal Block Spinal Block Patient Location: Pre-op Start Time: 10/20/2025 7:10 AM End Time: 10/20/2025 7:15 AM Reason for Block: Primary Anesthetic IV In situ: Peripheral General Information and Staff: Service Provider: MARLIN Powell Placed by: MARLIN Powell Checklist: Patient Identified, IV Checked, Site Marked, Risks and Benefits Discussed, Surgical Consent, Monitors and Equipment Checked, Pre-op Evaluation and Timeout Performed Fire Risk Assessment Score: 2 Patient Positioning and Technique: Patient Position: Sitting Prep: Chlorhexidine, Maximum Sterile Barriers Used and Patient Draped Monitoring: Blood Pressure, Continuous Pulse Ox, Communications Marketing Intern and Heart Rate Oxygen Source: Room Air Approach: Midline Location: L4-L5 Injection Technique: Single-Shot Placement Technique: [place] Technique Placement Technique: not ultrasound guided not ultrasound guided Local Infiltration: Lidocaine 1% Dose: 3 mL Needle: Needle Type: Pencan/Atraucan Needle Gauge: 24 G Catheter Type: Open End Anesthesia Block Medication Given: mqtpuarpcte-advbzsrr-uzvir(PF) (MARCAINE SPINAL) 0.75 % (7.5 mg/mL) injection - intrathecal, Back 1.5 mL - 10/20/2025 7:14:00 AM Number of Attempts: 1 CSF Comment: Clear Free-Flowing CSF Injection Assessment: No Paresthesia on Injection and No Pain on Injection Comments: VSS and on preop record; CREAM RIPENER remains with patient in preop post SAB * Anesthesia Preprocedure Evaluation - Gopal Mcgovern MD - 10/20/2025 6:34 AM EST Images from the original note were not included. [facility] REPLACEMENT TOTAL JOINT HIP ANTERIOR SUPINE INTERMUSCULAR ANESTHESIA PHYSICAL EXAM Patient summary reviewed and nursing notes reviewed. No history of anesthetic complications Airway Mallampati: II TM distance: >3 FB Neck ROM: Full Patient is not intubated Patient does not have tracheostomy Mouth Opening:>= 4 cm (-) vocal cord disorder Dental : exam normal Comment: Lower bridge Implants #8,9 [place] #10 Pulmonary : exam normal (-) wheezing Cardiovascular Exercise tolerance: >/= 4 METS ECG reviewed Rhythm: Regular Rate: Normal Neuro : exam normal , awake, oriented x3 and alert Peds/tobacco stripper hand Abdominal : exam normal NPO 8 hours Other Findings Past Medical History: No date: Arthritis Comment: osteo left knee No date: Borderline diabetes No date: Dental disease Comment: 2 implants, 1 bridge on bottom No date: Gout Comment: hx of No date: Hyperlipidemia No date: Hypertension No date: Visual impairment Comment: contacts/readers Eyes ANESTHESIA PLAN ASA 2 Anesthesia Type: MAC and spinal (Possible GA) Induction: Intravenous Airway Management: Mask and Nasal Cannula/NRB Post op Pain Management: IV Analgesics and PO Analgesics PONV Plan: plan for postoperative opioid use, GIVE 2 AGENTS Anesthetic risks, plan and alternatives discussed with Patient. Plan discussed with CREAM RIPENER. NPO Status: Past Medical History: Diagnosis Date Arthritis osteo- here for workup for pending left KAYLAH Borderline diabetes Dental disease 2 implants, 1 bridge on bottom Gout hx of Hyperlipidemia Hypertension Visual impairment contacts/readers Past Surgical History: Procedure Laterality Date COLONOSCOPY KNEE ARTHROSCOPY Right WISDOM TOOTH EXTRACTION No Known Allergies Social History Tobacco Use Smoking Status Former Types: Cigarettes Smokeless Tobacco Current Types: Snuff Tobacco Comments Smoked for 30 years 1pk/day quit 2009 Alcohol Use: Alcohol Misuse (06/24/2023) Received from [facility] [place] AUDIT-C Q1: How often do you have a drink containing alcohol?: 2-3 times a week Q2: How many drinks containing alcohol do you have on a typical day when you are drinking?: 5 or 6 Q3: How often do you have six or more drinks on one occasion?: Less than monthly OB History: Estimated Date of Delivery: None noted. Outpatient Meds: Current Outpatient Medications Medication Instructions allopurinoL (ZYLOPRIM) 100 mg, oral, Daily aspirin 81 mg, oral, 2 times daily, Begin taking day AFTER total joint replacement CREATINE MONOHYDRATE ORAL 2 tablets, Daily hydroCHLOROthiazide (HYDRODIURIL) 25 mg, Daily losartan (COZAAR) 100 mg, Daily meloxicam (MOBIC) 15 mg, oral, Daily, Begin taking day AFTER total joint replacement dfgpondf-exbw-LO-calcium &mins (THERAGRAN-M) 9 mg iron-400 mcg tablet 1 tablet, Daily omega 2-sae-syt-fish oil 100-400-1,000 mg capsule 1,000 mg, Daily rosuvastatin (CRESTOR) 10 mg, Daily testosterone (ANDROGEL) 30 mg, Daily Vitals: There were no vitals taken for this visit. Vent: Labs: Echo: No results found. Cath: No results found. EK/25 Sinus rhythm . Right bundle branch block Stress: No results found. CXR: No results found. Carotid: No results found. Risk Factors: PONV: Low Risk Total Score: 1 Score Rules Non-smoker Criteria that do not apply: Female patient History of PONV and/or Motion Sickness Intended opioid administration RCRI: Low Risk: Score of 0 = 3.9% (2.8-5.4%) Risk of major cardiac event Score of 1 = 6.0% (4.9-7.4%) Risk of major cardiac event Total Score: 0 Score Rules Criteria that do not apply: Cerebrovascular Disease Ischemic Heart Disease Congestive Heart Failure Elevated Risk Surgery Pre-operative Treatment with Insulin Pre-operative Creatinine >2 mg/dL / 176.8 mol/L documented in this encounter Plan of Treatment DateTypeDepartmentCare Team (Latest Contact Info)Nkythpmroea43/02/2026 8:30 AM ESTOffice Visit [facility] [address] [facility] [address] [place] [id number] Veronica Pimentel PA-C [address] [facility] [place] [address] documented as of this encounter Goals GoalPatient Goal TypeAssociated ProblemsRecent ProgressPatient-Stated?Author Autogenerated Goal Care PlanAutogenerated ProblemNoSchroeder, Allisondocumented as of this encounter Procedures Procedure NamePriorityDate/TimeAssociated DiagnosisCommentsANESTHESIA SPINAL MRLZAQdersvw25/17/2025 7:53 AM EST documented in this encounter Results * Spinal Block (10/20/2025 7:53 AM EST) Narrative Jocelyne Shepherd APRN-CRNA - 10/20/2025 7:53 AM EST MARLIN Powell 10/20/2025 7:54 AM Spinal Block Patient Location: ??Pre-op Start Time: ??10/20/2025 7:10 AM End Time: ??10/20/2025 7:15 AM Reason for Block: Primary Anesthetic ?? IV In situ: ??Peripheral General Information and Staff: Service Provider: ??MARLIN Powell Placed by: MARLIN Powell Checklist: Patient Identified, IV Checked, Site Marked, Risks and Benefits Discussed, Surgical Consent, Monitors and Equipment Checked, Pre-op Evaluation and Timeout Performed Fire Risk Assessment Score: 2 Patient Positioning and Technique: Patient Position: ??Sitting Prep: Chlorhexidine, Maximum Sterile Barriers Used and Patient Draped ?? Monitoring: ??Blood Pressure, Continuous Pulse Ox, Communications Marketing Intern and Heart Rate Oxygen Source: ??Room Air Approach: ??Midline Location: ??L4-L5 Injection Technique: ??Single-Shot Placement Technique: [place] Technique ?? Placement Technique: not ultrasound guided ??not ultrasound guided Local Infiltration: ??Lidocaine 1% Dose: ??3 mL Needle: Needle Type: ??Pencan/Atraucan Needle Gauge: ??24 G Catheter Type: ??Open End Anesthesia Block Medication Given: suobbvayamy-ckgpmvya-qduyn(PF) (MARCAINE SPINAL) 0.75 % (7.5 mg/mL) injection - intrathecal, Back 1.5 mL - 10/20/2025 7:14:00 AM Number of Attempts: ??1 CSF Comment: ??Clear Free-Flowing CSF Injection Assessment: ??No Paresthesia on Injection and No Pain on Injection Comments: VSS and on preop record; CREAM RIPENER remains with patient in preop post SAB Authorizing ProviderResult TypeResult StatusAmonadavid Mcgovern MDANESTHESIA ORDERABLES Final Result documented in this encounter Visit Diagnoses Not on filedocumented in this encounter Administered Medications Medication OrderMAR ActionAction DateDoseRateSite JSQxcrpuhvv-mogzedsz-htsrq(PF) (MARCAINE SPINAL) 0.75 % (7.5 mg/mL) injection intrathecal, One-Time Injection, Starting on Sat10/20/25 at 0714, For 1 dose, Anesthesia Intra-op Given10/20/2025 7:14 AM EST1.5 mLBack ceFAZolin (ANCEF) IVPB 2000 mg/50 mL in iso-osmotic dextrose (40 mg/mL premix) 2,000 mg, intravenous, at 100 mL/hr, Administer over 30 Minutes, Once, On Sat10/20/25 at 0615, For1 dose, Pre-op, Initiate within 1 hour prior to incision; for weight less than 120 kg. Look-alike/sound-alike medication - verify indication for use., Indication: Surgical prophylaxis Indications:Primary osteoarthritis of left rqaFaiwi04/17/2025 7:37 AM EST2,000 mg dexAMETHasone (DECADRON) injection intravenous, As needed, Starting on Sat10/20/25 at 0802, Anesthesia Intra-op Given10/20/2025 8:02 AM EST4 mg ketamine (KETALAR) injection intravenous, As needed, Starting on Sat10/20/25 at 0740, Anesthesia Intra-op Given10/20/2025 7:40 AM EST25 mg lactated ringers infusion 150 mL/hr, intravenous, Continuous, Starting on Sat10/20/25 at 0615, Pre-op, If fluid restriction is not indicated, infuse at a rate up to 5 mL/kg/hr not to exceed the total replacement volume (2 ml/kg/hr) from the time NPO status was initiated. Yegyvoilj35/17/2025 8:51 AM ESTContinued by Eiyilyjdfp65/17/2025 7:10 AM LTM186 mL/hrNew Bag10/20/2025 6:43 AM REJ850 mL/hr150 mL/hr lidocaine PF (XYLOCAINE) 20 mg/mL (2 %) injection infiltration, As needed, Starting on Sat10/20/25 at 0736, Anesthesia Intra-op Given10/20/2025 7:36 AM XFI252 mg midazolam (VERSED) injection 2 mg 2 mg, intravenous, As needed, anxiety, Starting on Sat10/20/25 at 0612, Pre-op, May repeat in 10 minutes, if needed, if original midazolam (VERSED) ineffective, Indication: Other, Indication: anxiety Given10/20/2025 7:40 AM EST1 nyXkbqp4510/20/2025 7:08 AM EST2 mg ondansetron (PF) (ZOFRAN) injection intravenous, As needed, Starting on Sat10/20/25 at 0802, Anesthesia Intra-op Given10/20/2025 8:02 AM EST4 mg phenylephrine HCl in 0.9% NaCl 1 mg/10 mL (100 mcg/mL) syringe intravenous, As needed, Starting on Sat10/20/25 at 0818, Anesthesia Intra-op Given10/20/2025 8:34 AM OEY349 ntvNibgo87/17/2025 8:26 AM UMW051 mcgGiven 10/20/2025 8:18 AM FKS220 mcg propofoL (DIPRIVAN) infusion intravenous, Continuous PRN, Starting on Sat10/20/25 at 0736, Anesthesia Intra-op Rate/Dose Ktlael8810/20/2025 7:39 AM BAO778 mcg/kg/min50.094 mL/hrNew Bag 10/20/2025 7:36 AM JCJ608 mcg/kg/min43.56 mL/hr propofol (DIPRIVAN) injection intravenous, As needed, Starting on Sat10/20/25 at 0736, Anesthesia Intra-op Given10/20/2025 7:39 AM EST30 ziYbpad3010/20/2025 7:36 AM EST70 mgdocumented in this encounter Additional Health Concerns Active ProblemsNoted DateDiagnosed DateAutogenerated Gultiuo9408/10/2025documented as of this encounter Care Teams Team MemberRelationshipSpecialtyStart DateEnd Krystian Mo MD [address] [place] [address] PCP - GeneralInternal Nabdbnco31/17/25documented as of this encounter
--- OUTSIDE RECORDS SUMMARY | 2025-10-20 07:30 | XMS_ITS | Encounter Summary ---
Author Organization Medical Referral Source [facility] tem Address [id number] [address] [place] [address] Care Team Providers Care Professor Of Chemical Engineering Name Role Phone Krystian Henriquez MD Primary Care Provider [phone] Reason for Visit * Auth/CertSpecialtyDiagnoses / ProceduresReferred By ContactReferred To Contact Diagnoses Primary osteoarthritis of left hip Primary osteoarthritis of left hip [M16.12] Procedures [place] TOTAL HIP ARTHROPLASTY REPLACEMENT TOTAL JOINT HIP ANTERIOR SUPINE INTERMUSCULAR Charisma Crow MD [facility] [place] [address] Phone: tel: fax: Referral IDStatusReasonStart DateExpiration DateVisits RequestedVisits [id number] Encounter Details DateTypeDepartmentCare Team (Latest Contact Info)Ykythimqeoh84/17/2025 7:30 AM EST - 10/20/2025 9:00 [facility] [address] [facility] [place] [address] Charisma Crow MD [facility] [place] [address] REPLACEMENT TOTAL JOINT HIP ANTERIOR SUPINE INTERMUSCULAR [14815 (CPT??)] Surgery Details Date/TimeStatusLocationORServicePatient ClassCase ClassCase TypeTrauma Case? 10/20/2025 7:30 AMPostedBAY SNELLING SURGERYOR [facility] Out[facility] SurgeryElectivePanel 1 ProcedureLRBAnesOp RegionWound ClassCommentsREPLACEMENT TOTAL JOINT HIP ANTERIOR SUPINE INTERMUSCULARLeftGeneralHipClean SurgeonSurgeon RoleServicePanelAsslarisa, Charisma P, MDPrimaryOrthopedics1 Special Needs BIOMET documented in this encounter Social History Tobacco UseTypesPacks/DayYears UsedDateSmoking Tobacco: FormerCigarettes Smokeless Tobacco: CurrentSnuff Comments:Smoked for 30 years 1pk/day quit 2009 Alcohol UseStandard Drinks/NmmiSmgrupapKud32 (1 standard drink = 0.6 oz pure alcohol)ChildcareAnswerDate ZwmnydygJnxrnfaxoUucneat64/12/2019EmploymentAnswer Date WtsrpsqiWhbxrygcroWaafbgl50/12/2019Sex and Gender InformationValueDate RecordedSex Assigned at BirthNot on fileLegal VflEfwq8906/09/2015 11:30 AM EDT Gender IdentityNot on fileSexual OrientationNot on filedocumented as of this encounter Last Filed Vital Signs Vital SignReadingTime TakenCommentsBlood Bsoctfsm736/7810/20/2025 7:26 AM EST Zvhcm392610/20/2025 7:26 AM ICTVpreyoxtxxc92.5 ??C (97.7 ??F)10/20/2025 6:38 AM ESTRespiratory Uoma515912/21/2024 7:26 AM ESTOxygen Jmrubwtiuy03%10/20/2025 7:26 AM ESTInhaled Oxygen Concentration--Ggjjop27.6 kg (160 lb)10/20/2025 6:38 AM EST Podqth526 cm (5' 7.72 )10/20/2025 6:38 AM ESTBody Mass Index24.5310/20/2025 6:38 AM ESTdocumented in this encounter Functional Status * GaitQuestionAnswerDate of AssessmentAuthorAssistive DeviceRolling walker 10/20/2025 1:02 PM Ladonna Wagoner, REYES * HEENTQuestionAnswerDate of AssessmentAuthorHEENT (WDL)WDL112/21/2024 2:45 PM Tia Miller RN * AN Cardiac QuestionsQuestionAnswerDate of AssessmentAuthorCP when climbing a flight of stairs or walking a city block?No10/20/2025 6:38 AM Michelle Lindquist RNSOB when climbing a flight of stairs or walking a city block?No 10/20/2025 6:38 AM Michelle Lindquist RN * ActivityQuestionAnswerDate of AssessmentAuthorActivity PerformedDangle;Stand at bedside;Ambulate in wallace;Back to bed10/20/2025 1:02 PM Ladonna Wagoner, PT * OR Patient PreparationQuestionAnswerDate of AssessmentAuthorTime of last frzljj5821880/17/2025 6:40 AM Michelle Lindquist RNDate of last mvkcvq10964 10/20/2025 6:40 AM Michelle Lindquist RNDate of last iirgf3769960/17/2025 6:40 AM Michelle Lindquist, RNTime of last ioovi1551345/17/2025 6:40 AM Michelle Lindquist RN * BEE (kcal)AnswerDate of IlddcpcrhqSwlmnw671736/17/2025 6:38 AM Michelle Lindquist, STELLA * VitalsQuestionAnswerDate of FddrltxohoNguihoFT054/80112/21/2024 2:45 PM Tia Ruffin RNTemp97.512 2:45 PM Tia Miller RNTemp tvfIehmzhtd10/17/2025 2:45 PM Tia Miller, GLLztxk2664/17/2025 12:05 PM Tia Miller WLLbgf5744/17/2025 2:45 PM Tia Miller RN AbY3481710/20/2025 2:45 PM Tia Miller RNHeart Rate SourcePulse Ox 10/20/2025 2:45 PM Tia Miller RNBP LocationLeft arm10/20/2025 2:45 PM Tia Miller RNBP GvoijdHtcabcqvw02/17/2025 2:45 PM Tia Miller RNCardiac RhythmNormal sinus zdfrfk0010/20/2025 2:45 PM Tia Miller RNMAP (mmHg)8610/20/2025 11:30 AM Mamta Flores RNIs this an Orthostatic BP?No10/20/2025 12:05 PM Tia Miller RN * PACU InterventionsQuestionAnswerDate of AssessmentAuthorCold TherapyContinued 10/20/2025 2:45 PM Tia Miller RNComfort/Environmental Interventions Cold ghcctal6110/20/2025 2:45 PM Tia Miller RNIntermittent Pneumatic Cuff (IPC/EPC)Bilateral lower extremities;Vdwglgtkh64/17/2025 2:45 PM Tia Ruffin RN * Oxygen TherapyQuestionAnswerDate of AssessmentAuthorO2 Flow Rate (L/min)0 10/20/2025 2:45 PM Tia Miller RNO2 DeviceNone (Room air)10/20/2025 2:45 PM Tia Miller RN * Height and WeightQuestionAnswerDate of NulynhstgsTrayaeAdseba34.7210/20/2025 6:38 AM Michelle Lindquist RNWeight2560112/21/2024 6:38 AM Michelle Lindquist RNHeight TcqabkEvdhgb60/17/2025 6:38 AM Michelle Lindquist RNBSA (Calculated - sq m)1.8610/20/2025 6:38 AM Michelle Lindquist RNBMI (Calculated)24.5 10/20/2025 6:38 AM Michelle Lindquist RNWeight NvftluBflafn83/17/2025 6:38 AM Michelle Lindquist RNWeight in (lb) to have BMI = 36668.7112/21/2024 6:38 AM Michelle Lindquist RN * Pain 2QuestionAnswerDate of AssessmentAuthorObserved QqbtblfyKzil12/17/2025 2:39 PM Tia Miller RN * Patient ObservationQuestionAnswerDate of AssessmentAuthorPatient Observations pt moved to short stay; vss; report received from PACU112/21/2024 12:05 PM Tia Ruffin RN * NeurologicalQuestionAnswerDate of AssessmentAuthorDermatome Sensory Function Medial ankle, great toe10/20/2025 11:30 AM Mamta Flores RNLLE CjsqwtpluIzipnlwji57/17/2025 2:45 PM Tia Miller RNNeuro (WDL)X 10/20/2025 2:45 PM Tia Miller RNLevel of ConsciousnessAlert 10/20/2025 2:45 PM Tia Miller RNMotor Function/Sensation Assessment Sfovtqjqf99/17/2025 2:45 PM Tia Miller RNRichmond Agitation Sedation [...] Falling0 10/20/2025 2:45 PM Tia Miller RNSecondary Zpmnsiuyr698/17/2025 2:45 PM Tia Miller, RNAmbulatory Zjey262 2:45 PM Tia Miller RNIntravenous Therapy/Heparin/Saline Ahjk746112/21/2024 2:45 PM Tia Ruffin RNGait/Iiugdxnbtovr437/17/2025 2:45 PM Tia Miller RNMental Opevha656/17/2025 2:45 PM Tia Miller, XTXpikh71 10/20/2025 2:45 PM Tia Miller RN * RespiratoryQuestionAnswerDate of AssessmentAuthorRespiratory (WDL)WDL 10/20/2025 6:44 AM Michelle Lindquist RN * Services RequestedQuestionAnswerDate of AssessmentAuthorDischarge Disposition Home with home health jlouxhdk10/11/2025 1:19 PM Eileen Rodriguez LISW Facility/Service RnutTrwrxzg98/11/2025 1:19 PM Eileen Rodriguez LISW Facility/Service Fax -[phone]/11/2025 1:19 PM Eileen Rodriguez LISWPatient DeclinedOther (must state reason)10/14/2025 1:19 PM Eileen Joel LISWFacility/Service Phone Pjaahe087-004-539500/11/2025 1:19 PM Eileen Rodriguez LISWList ProvidedPatient nggfkqmo58/11/2025 1:19 PM Eileen Rodriguez LISWPatient choice wlrlgsqPxp75/11/2025 1:19 PM Eileen Rodriguez LISW * GenitourinaryQuestionAnswerDate of AssessmentAuthorGenitourinary (WDL)WDL 10/20/2025 2:45 PM Tia Miller RN * Abuse Indicator ScreeningQuestionAnswerDate of AssessmentAuthorSafe in HomeYes 10/20/2025 6:10 AM Michelle Lindquist RNDo you feel safe in your relationship(s)?Yes10/20/2025 6:10 AM Michelle Lindquist RNAre you in immediate danger?No10/20/2025 6:10 AM ESTEdens, Michelle, RN * Prior FunctionQuestionAnswerDate of AssessmentAuthorLevel of Mobility Independent with ADLs and functional transfers or gait10/20/2025 1:02 PM Ladonna Zhao, PTLives WithSpouse;Other (Comment)10/20/2025 1:02 PM Ladonna Zhao, PTReceives Help PgsuDcwazy20/17/2025 1:02 PM Ladonna Wagoner, PTHomemaking VvkrscxlumLepskoycfof68/17/2025 1:02 PM Ladonna Wagoner, PT * ADL / IADLQuestionAnswerDate of AssessmentAuthorBathing/Showering Assistance Min dtbyyt2410/20/2025 1:01 PM Clara Khan, OTR/LToilet/Commode AssistanceMin dkxayy8310/20/2025 1:01 PM Clara Khan, OTR/LUE Dressing PetgoofuecZdyoz99/17/2025 1:01 PM Clara Khan, OTR/LLE Dressing AssistanceMin flskam2710/20/2025 1:01 PM Clara Khan, OTR/LFootwear AssistanceMin zbwhfj1410/20/2025 1:01 PM Clara Khan, OTR/LEating QhswlzwujfSqenk14/17/2025 1:01 PM Clara Khan, OTR/LGrooming SupcicaorjOpyyp19/17/2025 1:01 PM Clara Khan, OTR/L * Patient AssessmentQuestionAnswerDate of AssessmentAuthorMood/AffectAppropriate for ejyjumpzqgbnz32/17/2025 1:02 PM Ladonna Wagoner PTTherapy Problem ListDecreased balance;Decreased mobility;Decreased LE axmujlrg44/17/2025 1:02 PM Ladonna Wagoner, PTRehab PrognosisGood;With continued PT status post acute tkfpohsso82/17/2025 1:02 PM Ladonna Wagoner, PTPatient Response to TreatmentProgressing toward goals;Improving as isrvhrwd03/17/2025 1:30 PM Nataly Resendiz PTA * Provider CommunicationQuestionAnswerDate of AssessmentAuthorProvider RoleNurse 10/20/2025 11:45 AM Mamta Flores RNProvider Sovgppqibxxx33/17/2025 11:45 AM Mamta Flores RNMethod of CommunicationFace to Face10/20/2025 11:45 AM Mamta Flores RNResponseIn qcijhpeulz26/17/2025 11:45 AM Mamta Gant RN * Blood HistoryQuestionAnswerDate of AssessmentAuthorHave you had a blood transfusion?No10/20/2025 6:38 AM Michelle Lindquist RNWould you accept a blood transfusion in a life-threatening situation?Yes10/20/2025 6:38 AM Michelle Lindquist RN * Medical Advance DirectiveQuestionAnswerDate of AssessmentAuthorDo you have a Medical Advance Directive?No10/20/2025 6:25 AM Michelle Lindquist RNMedical Advance Directive InformationPatient would not like qijfdehvktu70/17/2025 6:25 AM Michelle Lindquist RN * Adult Sepsis RiskQuestionAnswerDate of AssessmentAuthorRisk of Sepsis v.20.1 10/20/2025 4:40 PM ESTBackground, Clindoc * VisitQuestionAnswerDate of AssessmentAuthorOT Type of VisitEvaluation 10/20/2025 1:01 PM Clara Khan, OTR/LPT Type of VisitTreatment 10/20/2025 1:30 PM Nataly Romeo PTARN OadznlgybugagYmt88/17/2025 1:30 PM Nataly Romeo PTAMedical Record EkhlkkhnYty92/17/2025 1:30 PM Nataly Romeo PTA * Pain AssessmentQuestionAnswerDate of AssessmentAuthorPain LocationHip 10/20/2025 2:45 PM Tia Miller RNPain CkxohftxppaLkqn45/17/2025 2:45 PM Tia Miller RNPain CmbmpgrqjfeJwpuz78/17/2025 2:45 PM Tia Miller RNPain DurationConstant/itokhythiz45/17/2025 2:45 PM Tia Miller RNPatient's Stated Acceptable Pain Pjzfr00212/21/2024 2:45 PM Tia Ruffin RNResponse to InterventionsVerbalized acceptable Pain Score 10/20/2025 2:45 PM Tia Miller RNPain Assessment0-10112/21/2024 2:45 PM Tia Miller RNPain Efgbg86712/21/2024 2:45 PM Tia Miller RNFACES Pain Rating Zjvcs28712/21/2024 9:03 AM Mamta Flores RN * Patient Belongings at Bedside / StretcherQuestionAnswerDate of Assessment AuthorVision - Corrective SvlpxcRbrrfuf57/17/2025 6:38 AM Michelle Lindquist RNClothingBelonging Bag10/20/2025 7:52 AM Mel Yuan RNBelongings at KtlckmtGkoehjut97/17/2025 7:52 AM Mel Yuan RN * IntegumentaryQuestionAnswerDate of AssessmentAuthorIntegumentary (WDL)WDL 10/20/2025 6:44 AM Michelle Lindquist RN * Feature 3: Altered Level of ConsciousnessAnswerDate of AssessmentAuthor Odkqtmow07/17/2025 2:45 PM Tia Miller RN * Fall [...] of AssessmentAuthorCurrent Impairments Informing Therapy RecommendationADL status;Ambulation status/khzctx6410/20/2025 1:01 PM Clara Khan, OTR/LOT Therapy RecommendationsHome Occupational Therapy;Home Physical Therapy 10/20/2025 1:01 PM Clara Khan, OTR/LPT Discharge Disposition EldrhdqxsaiurqRanr60/17/2025 1:30 PM Nataly Romeo, PTAOT Discharge Disposition HyaoeijbpcctwuFzwe01/17/2025 1:01 PM Clara Khan, OTR/LOT Home RecommendationsIntermittent caregiver support for:10/20/2025 1:01 PM Clara Alberts, OTR/LPT Home RecommendationsIntermittent caregiver support for:10/20/2025 1:02 PM Ladonna Wagoner PTPT Therapy RecommendationsHome Physical Lffvwei9010/20/2025 1:30 PM Nataly Romeo, FRUIT RECEIVER * ActivityQuestionAnswerDate of AssessmentAuthorActivity PerformedDangle;Stand at bedside;Ambulate in wallace;Back to bed10/20/2025 1:02 PM Ladonna Wagoner, PT * BEE (kcal)AnswerDate of MablfkmrvbGftprt762536/17/2025 6:38 AM Michelle Lindquist RN * VitalsQuestionAnswerDate of JxvgmckwxuDaatfuCK988/80112/21/2024 2:45 PM Tia Ruffin RNTemp97.512 2:45 PM Tia Miller RNTemp bcdWkklmmro83/17/2025 2:45 PM Tia Miller, ILGsecy1335 12:05 PM Tia Miller RNResp16112/21/2024 2:45 PM Tia Miller RN XqK4413210/20/2025 2:45 PM Tia Miller RNHeart Rate SourcePulse Ox 10/20/2025 2:45 PM Tia Miller RNBP LocationLeft arm10/20/2025 2:45 PM Tia Miller RNBP QbmdmqYohrcwelx98/17/2025 2:45 PM Tia Miller RNMAP (mmHg)8610/20/2025 11:30 AM Mamta Flores RNIs this an Orthostatic BP?No10/20/2025 12:05 PM Tia Miller RN * Height and WeightQuestionAnswerDate of UtttkvxdtzIegenyYsmfie60.7210/20/2025 6:38 AM Michelle Lindquist RNWeight2560112/21/2024 6:38 AM Michelle Lindquist RNHeight SdyadkLyoqae62/17/2025 6:38 AM Michelle Lindquist RNBSA (Calculated - sq m)1.8610/20/2025 6:38 AM Michelle Lindquist RNBMI (Calculated)24.5 10/20/2025 6:38 AM Michelle Lindquist RNWeight HwarqmCwndmc11/17/2025 6:38 AM Michelle Lindquist RNWeight in (lb) to have BMI = 57009.7112/21/2024 6:38 AM Michelle Lindquist RN * Hearing / Speech / VisionQuestionAnswerDate of AssessmentAuthorHearingWFL 10/20/2025 1:02 PM LARStalLadonna lazcano, JEEgahwlFBK42/17/2025 1:02 PM EST Ladonna Matthews, PTCurrent VisionWears dvligcsl47/17/2025 1:02 PM EST Ladonna Matthews, PT * ADL / IADLQuestionAnswerDate of AssessmentAuthorBathing/Showering Assistance Min pmywcj5410/20/2025 1:01 PM Clara Khan, OTR/LToilet/Commode AssistanceMin kzdlmz5910/20/2025 1:01 PM Clara Khan, OTR/LUE Dressing GnxospbcoeSrxqo06/17/2025 1:01 PM Clara Khan, OTR/LLE Dressing AssistanceMin ohtniv4810/20/2025 1:01 PM Clara Khan, OTR/LFootwear AssistanceMin nlecat7010/20/2025 1:01 PM Clara Khan, OTR/LEating QvfuvzolzlGhllz53/17/2025 1:01 PM Clara Khan, OTR/LGrooming EmmecildyqLrgpv18/17/2025 1:01 PM Clara Kahn, OTR/L * Activity ToleranceQuestionAnswerDate of AssessmentAuthorOthertolerating bed mobility, seated and supine le exs112/21/2024 1:30 PM Nataly Romeo PTA EnduranceTolerates <30 minutes activity WITHOUT vital sign odfbcka5210/20/2025 1:02 PM Ladonna Wagoner PT * VisitQuestionAnswerDate of AssessmentAuthorOT Type of VisitEvaluation 10/20/2025 1:01 PM Clara Khan, OTR/LPT Type of VisitTreatment 10/20/2025 1:30 PM Nataly Romeo PTARN UgehzswifylilXqy24/17/2025 1:30 PM Nataly Romeo PTAMedical Record PneqclnrMvw07/17/2025 1:30 PM Nataly Romeo FRUIT RECEIVER documented as of this encounter Mental Status * HEENTQuestionAnswerEntry DateAuthorHEENT (WDL)WDL112/21/2024 2:45 PM Tia Ruffin RN * VitalsQuestionAnswerEntry McfkSicwjvFP454/80112/21/2024 2:45 PM Tia Miller RNTemp97.512 2:45 PM Tia Miller RNTemp src Rcuhywyx13/17/2025 2:45 PM Tia Miller BZWlzps4825/17/2025 12:05 PM Tia Miller KTPxlg1383/17/2025 2:45 PM Tia Miller RNSpO2 9510/20/2025 2:45 PM Tia Miller RNHeart Rate SourcePulse Ox 10/20/2025 2:45 PM Tia Miller RNBP LocationLeft arm10/20/2025 2:45 PM Tia Miller RNBP TweoiaThduekjuh13/17/2025 2:45 PM Tia Miller RNCardiac RhythmNormal sinus izrnox4810/20/2025 2:45 PM Tia Miller RNMAP (mmHg)8610/20/2025 11:30 AM Mamta Flores RNIs this an Orthostatic BP?No10/20/2025 12:05 PM Tia Miller RN * Oxygen TherapyQuestionAnswerEntry DateAuthorO2 Flow Rate (L/min) 2:45 PM Tia Miller RNO2 DeviceNone (Room air)10/20/2025 2:45 PM Tia Ruffin RN * Pain 2QuestionAnswerEntry DateAuthorObserved ScnftyrhVuzm30/17/2025 2:39 PM Tia Miller RN * NeurologicalQuestionAnswerEntry DateAuthorDermatome Sensory FunctionMedial ankle, great toe10/20/2025 11:30 AM Mamta Flores RNLLE Sensation Ggdsqwcwc21/17/2025 2:45 PM Tia Miller RNNeuro (WDL)X112/21/2024 2:45 PM Tia Miller RNLevel of MkeqxceasmpslTeclk82/17/2025 2:45 PM Tia Miller RNMotor Function/Sensation BqmozbktdcShwgljvgi04/17/2025 2:45 PM Tia Miller RNRichmond Agitation Sedation [...] AM Michelle Lindquist RN * RespiratoryQuestionAnswerEntry DateAuthorRespiratory (WDL)WDL112/21/2024 6:44 AM Michelle Lindquist RN * CognitionQuestionAnswerEntry DateAuthorOverall Cognitive JysthhTVV50/17/2025 1:02 PM Ladonna Wagoner, REYES * GenitourinaryQuestionAnswerEntry DateAuthorGenitourinary (WDL)WDL112/21/2024 2:45 PM Tia Miller RN * Provider CommunicationQuestionAnswerEntry DateAuthorProvider RoleNurse 10/20/2025 11:45 AM Mamta Flores RNProvider Lagmcjfzvlqw84/17/2025 11:45 AM Mamta Flores RNMethod of CommunicationFace to Face10/20/2025 11:45 AM Mamta Flores RNResponseIn prumerxdpx09/17/2025 11:45 AM Mamta Gant RN * Pain AssessmentQuestionAnswerEntry DateAuthorPain RelisbhsFxj01/17/2025 2:45 PM Tia Miller RNPain SdyhkagihtjUfjg96/17/2025 2:45 PM Tia Miller RNPain UqxrxbkleirHcrll49/17/2025 2:45 PM Tia Miller RN Pain DurationConstant/ldrbdumblm78/17/2025 2:45 PM Tia Miller RN Patient's Stated Acceptable Pain Pmroo62812/21/2024 2:45 PM Tia Miller RNResponse to InterventionsVerbalized acceptable Pain Score 10/20/2025 2:45 PM Tia Miller RNPain Assessment0-10112/21/2024 2:45 PM Tia Miller RNPain Jsllw67712/21/2024 2:45 PM Tia Miller RNFACES Pain Rating Rvzam09112/21/2024 9:03 AM Mamta Flores, STELLA * IntegumentaryQuestionAnswerEntry DateAuthorIntegumentary (WDL)WDL112/21/2024 6:44 AM Michelle Lindquist RN * Feature 3: Altered Level of ConsciousnessAnswerEntry DateAuthorNegative 10/20/2025 2:45 PM Tia Miller RN * Urine Output/AssessmentQuestionAnswerEntry DateAuthorUrine ColorYellow/straw 10/20/2025 2:15 PM Tia Miller RNUrine UqtgikuycuVvrgu76/17/2025 2:15 PM Tia Miller RN * Modified AldreteQuestionAnswerEntry OuoyDcsbumKxcqxsie863/17/2025 2:45 PM Tia Ruffin RNRespiration2112/21/2024 2:45 PM Tia Miller RN Uxrnrtrjatg389/17/2025 2:45 PM Tia Miller RNConsciousness2 10/20/2025 2:45 PM Tia Miller RNOxygen Axdgqygslv428/17/2025 2:45 PM Tia Miller RNModified Tad Zfkgm8817/17/2025 2:45 PM Tia Ruffin RN * Discharge Recommendations for Safe Patient TransitionQuestionAnswerEntry Date AuthorCurrent Impairments Informing Therapy RecommendationADL status;Ambulation status/vmylyk6510/20/2025 1:01 PM Clara Khan, OTR/LOT Therapy RecommendationsHome Occupational Therapy;Home Physical Therapy 10/20/2025 1:01 PM Clara Khan, OTR/LPT Discharge Disposition ZikxikjwzhfowmBjoa80/17/2025 1:30 PM Nataly Romeo PTAOT Discharge Disposition VxanfotktgjwhoTqlo84/17/2025 1:01 PM Clara Khan, OTR/LOT Home RecommendationsIntermittent caregiver support for:10/20/2025 1:01 PM Clara Alberts, OTR/LPT Home RecommendationsIntermittent caregiver support for:10/20/2025 1:02 PM Ladonna Wagoner PTPT Therapy RecommendationsHome Physical Dnuamrx6110/20/2025 1:30 PM Nataly Romeo PTA documented in [...] hour while awake and at rest. 3. [facility] ice machine- Continous icing whenever at rest [...] first visit. NOTE: if going to a long term facility directly from the hospital, their discharge [...] narcotic for pain relief. Examples are: Percocet, Leighton, Tramadol. At first, when your pain is [...] any specific questions or concerns, please call [facility] Body Hanger at [phone] during the hours of 7am- 9pm to reach the Anesthesiologist working for Surgical Services that day. If between the hours of 9pm- 7am, Please call the [facility] Transfer Table Operator to reach the On CallAnesthesiologist at [phone]. Anti-inflammatory medications: Your physician will typically prescribe [...] AFTER total joint replacement. 30 tablet 09/22/2025 dyshzinc-wxer-CQ-calcium &mins (THERAGRAN-M) 9 mg iron-400 mcg tablet Take 1 tablet by mouth in the morning. omega 5-gsc-qgm-fish oil 100-400-1,000 mg capsule Take 1,000 mg [...] AND PHYSICAL INTERVAL NOTE: Dmitri Pelletier 1970 [id number] H&P reviewed. The patient was examined and there are no changes to the H&P. CHARISMA CROW MD Source Note - LETI Marie - 10/06/2025 12:30 PM EST PRE-ADMISSION TESTING HISTORY AND PHYSICAL EXAM DATE: 10/06/25 PCP: No primary care provider on file. CHIEF COMPLAINT: left hip pain HISTORY OF PRESENT ILLNESS: Dmitri Pelletier, a 55 y.o. Other /White male, presents to [facility] for a pre-surgical H&P for REPLACEMENT TOTAL [...] mouth in the morning., Disp: , Rfl: dbcsexpn-lhcr-XT-calcium &mins (THERAGRAN-M) 9 mg iron-400 mcg tablet, Take 1 tablet by mouth in the morning., Disp: , Rfl: omega 5-xzo-hvh-fish oil 100-400-1,000 mg capsule, Take 1,000 mg [...] the most recent lab values available in [facility] at the time ofthe office visit and additional labs may have been drawn since that time. ASSESSMENT / DIAGNOSIS: Pre-Op Diagnosis Codes: * Primary osteoarthritis of left hip [M16.12] PLAN: Dmitri Pelletier is scheduled for REPLACEMENT TOTAL JOINT HIP ANTERIOR SUPINE INTERMUSCULAR LEFTwith Charisma Crow MD on 10/20/25 LETI Marie 10/06/25 1255 LETI Marie 10/20/25 0725 documented in this encounter Miscellaneous Notes * PT/OT/SPORTING GOODS SALESPERSON - Nataly Madrigal PTA - 10/20/2025 1:36 PM EST Physical Therapy [...] and education documentation for this visit. * PT/OT/SPORTING GOODS SALESPERSON - Ladonna Matthews PT - 10/20/2025 1:30 [...] Prior Function Lives With: Spouse, Other (Comment) (bcnvhi-sg-idl) Receives Help From: Family Level of Mobility: [...] Problem: Primary osteoarthritis of left hip * PT/OT/SPORTING GOODS SALESPERSON - Clara Luu, OTR/L - 10/20/2025 1:23 PM EST Occupational [...] Patient will perform dressing LB with Modified [place] Dates: Start: 10/20/25 Expected End: 10/22/25 Description: Goal Description: Disciplines: OT Problem: Functional Mobility Dates: Start: 10/20/25 Disciplines: OT Goal: Patient will perform functional mobility with Modified [place] Dates: Start: 10/20/25 Expected End: 10/22/25 Description: Goal Description: Disciplines: OT Problem: Standing Balance Dates: Start: 10/20/25 Disciplines: OT Goal: Improve balance to good Dates: Start: 10/20/25 Expected End: 10/22/25 Description: Static Dynamic Disciplines: OT Problem: Toilet Transfers Dates: Start: 10/20/25 Disciplines: OT Goal: Patient will perform toilet transfers with Modified [place] Dates: Start: 10/20/25 Expected End: 10/22/25 Description: Goal Description: Disciplines: OT Problem: Toileting Dates: Start: 10/20/25 Disciplines: OT Goal: Patient will perform toileting with Modified [place] Dates: Start: 10/20/25 Expected End: 10/22/25 Description: Goal Description: Disciplines: OT Problem: Transfers Dates: Start: 10/20/25 Disciplines: OT Goal: Patient will perform transfers with Modified [place] Dates: Start: 10/20/25 Expected End: 10/22/25 Description: Goal Description: Disciplines: OT Occupational Therapy Care Plan (Resolved) There are no resolved problems. Principal Problem: Primary osteoarthritis of left hip * Discharge Planning Note - Rhonda Painter - 10/20/2025 10:04 AM EST DISCHARGE PLANNING NOTE CRF and referral sent to [facility] P[facility] ; F# [facility] * Op Note - Charisma Crow MD - 10/20/2025 7:30 AM EST Total Hip Operative Report NAME: Dmitri Pelletier : 1970 PROCEDURE DATE: 10/20/2025 Surgeon: Surgeons and Role: * Charisma Crow MD - Primary Assistants: Issa Gruber PAC Staff: Slasher Hand Primary: Mel Osuna RN Geothermal Sheet Metal Worker: BECKIE Moreno Scrub Person: ST Joanie Cocktail Lounge Manager: Ami Molina RNtelephone recorder PA: LETI Vanegas Pre-op Diagnosis: Primary osteoarthritis [...] Implant Name Type Inv. Item Serial No. Paradichlorobenzene Machine Operator Lot No. LRB No. Used Action SHELL ACTB 56MM HIP LMT HL CLR CD PPS G7 F HMSPHR - [id number] Orthopedic Implant SHELL ACTB 56MM HIP LMT HL CLR CD PPS G7 F HMSPHR [employer] [id number] Left 1 Implanted LINER ACTB 36MM F VIVACIT-E LUM G7 HIP STRL LF - [id number] Orthopedic Implant LINER ACTB 36MM F VIVACIT-E LUM G7 HIP STRL LF [employer] [id number] Left 1 Implanted HEAD FEM 36MM G7 BLX D BIOLOX OPT HIP RPL [id number] - [id number] Orthopedic Implant HEAD FEM 36MM G7BLX D BIOLOX OPT HIP RPL [id number] [employer] [id number] Left 1 Implanted STEM FEM 109MM 12MM 133D HI OS TPR TPRLK MICROPLASTY PPS TI - [id number] Orthopedic Implant STEM FEM 109MM 12MM 133D HI OS TPR TPRLK MICROPLASTY PPS TI [employer] [id number] Left 1 Implanted SLEEVE HIP -6MM OS TPR G7 BLX D OPT TI CENTERING TY 1 RPL [id number] - [id number] Orthopedic Implant SLEEVE HIP -6MM OS TPR G7 BLX D OPT TI CENTERING TY 1 RPL [id number] [employer] [id number] Left 1 Implanted Indications and Consent: This [...] mm head -6mm neck, which showed excellent gnosticist of leg length and off set. Intraoperative [...] procedure were correct x 2. The physician advertising sales assistant if listed as the senior it assistant was present for the entire procedure [...] Cathy Crow on 10/20. Patient is planning C. Referral sent to [facility] and accepted. Will need CRF on day of surgery for CNRC to send. Added to AVS. Patient will need a 2 wheeled rolling walker (DME). Patient has adequate support to help after surgery (spouse). No further intervention at this time. Plan of Care: [facility] [phone] or [phone] fax CRF at Discharge documented in this encounter Plan of Treatment DateTypeDepartmentCare Team (Latest Contact Info)Vbfezatqxgw59/02/2026 8:30 AM ESTOffice Visit [facility] [address] [place] [address] Veronica Pimentel PA-C [address] [place] [address] documented as of this encounter Goals GoalPatient Goal TypeAssociated ProblemsRecent ProgressPatient-Stated?Author Autogenerated Goal Care PlanAutogenerated ProblemNoSchroeder, Allisondocumented as of this encounter Procedures Procedure NamePriorityDate/TimeAssociated DiagnosisCommentsXR PELVIS 1 OR 2 VWS STAT112/21/2024 9:27 AM EST XR HIP LT 1 VIEW W OR WO OGHBPPLaqlfoq19/17/2025 8:44 AM EST [place] TOTAL HIP VFMSHBOCYCGJ48/17/2025 7:30 AM EST Primary osteoarthritis of left hip Special Needs BIOMET BEDSIDE HNIWZMVWtoizvw10/17/2025 6:47 AM EST documented in this encounter [...] 9:32 AM Authorizing ProviderResult TypeResult StatusCraig P Gil [facility] ORDERABLESFinal Result * X-ray hip [...] on 10/20/2025 9:21 AM Authorizing ProviderResult TypeResult StatusCrveto [facility] DIAGNOST[facility] IMAGING ORDERABLESFinal Result * Bedside Glucose *Place/Obtain serum glucose if >500 per glucometer. (10/20/2025 6:47 AM EST)ComponentValueRef RangeTest MethodAnalysis Time Performed AtPathologist SignatureBedside Glucose (POC)9465 - 99 mg/dL 10/20/2025 6:52 AM [facility] ([facility])Anatomical Location / LateralityCollection Method / VolumeCollection TimeReceived Time arterial/ewibkccrp62/17/2025 6:47 AM EST10/20/2025 6:52 AM EST Narrative Authorizing ProviderResult TypeResult StatusCraig P Assenmacher MDPOINT OF CARE TEST ORDERABLESFinal ResultPerforming OrganizationAddressCity/State/ZIP Code Phone Number [facility] [address] [place] [address], documented in this encounter Visit Diagnoses Diagnosis Primary osteoarthritis of left hip- Primary Primary osteoarthritis of left hip Primary osteoarthritis of left hip documented in this encounter Admitting Diagnoses Diagnosis Primary osteoarthritis of left hip documented in this encounter Administered Medications Medication OrderMAR ActionAction DateDoseRateSite ceFAZolin (ANCEF) 1,000 mg, EPINEPHrine (ADRENALIN) 0.3 mg, morphine 10 mg, ketorolac (TORADOL) 15 mg, bupivacaine PF (MARCAINE) 0.5 % (5 mg/mL) 150 mg in sodium chloride 0.9 % 60 mL irrigation intra-articular, Once, On Sat10/20/25 at 0730, For 1 dose, Intra-op, IRRIGATION USE ONLY Look-alike/sound-alike medication - verify indication for use. Indications:Primary osteoarthritis of left cwtQblsb94/17/2025 8:33 AM EST97.3 mL Operative Site ceFAZolin (ANCEF) IVPB 2000 mg/50 mL in [...] indication for use., Indication: Surgical prophylaxis New Bag10/20/2025 12:53 PM EST2,000 mg100 mL/hr celecoxib (CeleBREX) capsule 200 mg 200 mg, oral, Once, On Sat10/20/25 at 0615, For 1 dose, Pre-op, If without allergy to non-steroidal anti-inflammatory drugs (NSAID). Hold for patients 80 years of age or older. Look-alike/sound-alike medication - verify indication for use. Indications:Primary osteoarthritis of left hiwPvqtf58/17/2025 6:42 AM DRB137 mg dexAMETHasone (DECADRON) IVPB 40 mg in NS 100 mL 40 mg, intravenous, at 400 mL/hr, Administer over 15 Minutes, Once, On Sat10/20/25 at 0615, For 1 dose, Pre-op, Over 15 minutes. Hold for blood glucose greater than 200. May alter blood glucose or insulin requirements. Look-alike/sound-alike medication - verify indication for use. Indications:Primary osteoarthritis of left hipNew Bag10/20/2025 6:15 AM EST40 mg 400 mL/hr fentaNYL [...] indication for use. Indications:Primary osteoarthritis of left xjbIgvxa09/17/2025 6:15 AM MJZ798 mg hydrALAZINE (APRESOLINE) injection 5 mg 5 [...] from the time NPO status was initiated. Ewulnvuce32/17/2025 8:51 AM ESTContinued by Ahxirfcrrk47/17/2025 7:10 AM SFE249 mL/hrNew Bag10/20/2025 6:43 AM IEZ507 mL/hr150 mL/hr lactated ringers infusion 100 mL/hr, intravenous, Continuous, Starting on Sat10/20/25 at 0900, PACU (only) midazolam (VERSED) injection 2 mg 2 mg, intravenous, As needed, anxiety, Starting on Sat10/20/25 at 0612, Pre-op, May repeat in 10 minutes, if needed, if original midazolam (VERSED) ineffective, Indication: Other, Indication: anxiety Given10/20/2025 7:40 AM EST1 uwJulxh6910/20/2025 7:08 AM EST2 mg naloxone (NARCAN) injection [...] medication - verify indication for use. Immediaterelease. sodium chloride 0.9 % (bag) (NS) 0.9 % irrigation solution As needed, Starting on Sat10/20/25 at 0751, Intra-op Given10/20/2025 7:51 AM EST1,000 mLOperative Site sodium chloride 0.9% (NS) irrigation bottle As needed, Starting on Sat10/20/25 at 0735, Intra-op Given10/20/2025 7:35 AM EST1,000 mL tranexamic acid (LYSTEDA) tablet 1,950 mg 1,950 mg, oral, 30 min pre-op, On Sat10/20/25 at 0615, For 1 dose, Pre-op, Administer 30 minutes prior to surgery Indications:Primary osteoarthritis of left zxyJwqvw04/17/2025 6:42 AM EST1,950 mgdocumented in this encounter Active and Recently Administered Medications Times are shown in EST.Medication Order// ceFAZolin (ANCEF) 1,000 mg, EPINEPHrine (ADRENALIN) 0.3 [...] * 1253 (New Bag - Provider: Tia Schwartz, STELLA) * 1323 (Due: Stop Bag - Provider: Tia Schwartz, STELLA) celecoxib (CeleBREX) capsule 200 mg (COMPLETED) 200 [...] (Given - Provider: Michelle Cohn RN) Medication Order10/18/20241105// lactated ringers infusion (CANCELED) 150 mL/hr, intravenous, [...] 0900, PACU (only) * 0900 (Due) Medication Order// fentaNYL (SUBLIMAZE) injection 25 mcg 25 mcg, [...] * 0740 (Given - Provider: Jocelyne Shepherd APRN-LINUX SYSTEM ADMINISTRATOR) naloxone (NARCAN) injection 0.1 mg 0.1 mg, [...] Additional Health Concerns Active ProblemsNoted DateDiagnosed DateAutogenerated Lawpbvz0108/10/2025documented as of this encounter Care Teams Team MemberRelationshipSpecialtyStart DateEnd Date Krystian Henriquez MD [address] [facility] [address] [place] [id number] PCP - GeneralInternal Kkelofmt40/17/25documented as of this encounter
[2025-10-27 20:42] VITALS: BP 149/85; PULSE 94; TEMP 36.8; O2SAT 96; BMI 25.1
--- NOTE | 2025-10-27 20:50 | PC.NURSE ---
bruising to 3 sites to left leg. purple bruise above left knee and below left knee and behind left knee. pt states this was not there after surgery. left leg swelling and reports pt has been up more on this today and has not rested like instructed to.
--- NOTE | 2025-10-27 21:00 | ED.EXTPRO1 ---
HPI - Extremity Problem General Chief complaint: Extremity Problem, Nontraumatic Stated complaint: Lower Pain Time Seen by Provider: 10/27/25 20:44 Source: patient Mode of arrival: walk-in History of Present Illness HPI Narrative: s/p left KAYLAH one week ago. Describes large hematoma at his hip that has now cleared. He was up and walking more today since the surgery. He now has swelling of the left lower extremity and ecchymosis at the knee and shelton concerned this may be a blood clot and had him come in. He is on ASA and meloxicam. no dyspnea or light headiness Related Data Home Medications ?Medication ?Instructions ?Recorded ?Confirmed allopurinol 100 mg tablet 100 mg PO DAILY 12/05/23 12/10/23 hydrochlorothiazide 25 mg tablet 25 mg PO DAILY 12/05/23 12/10/23 losartan 100 mg tablet 100 mg PO DAILY 12/05/23 12/10/23 multivitamin 1 tab PO DAILY 12/05/23 12/10/23 rosuvastatin 10 mg tablet 10 mg PO DAILY 12/05/23 12/10/23 testosterone 30 mg/actuation (1.5 1 applic topical DAILY 12/05/23 12/10/23 mL) transderm solution metered pump testosterone 30 mg/actuation (1.5 2 pump topical .every three days 12/05/23 12/10/23 mL) transderm solution metered pump Allergies Allergy/AdvReac Type Severity Reaction Status Date / Time No Known Drug Allergies Allergy Verified 12/10/23 09:42 Review of Systems ROS Status of ROS 10 or more systems reviewed and unremarkable except as noted in history and below [facility] Medical History (Updated 10/27/25 @ 21:49 by Inocencio Camacho MD) High cholesterol ?E78.00 - Pure hypercholesterolemia, unspecified (ICD-10) HTN (hypertension) ?I10 - Essential (primary) hypertension (ICD-10) Gout ?M10.9 - Gout, unspecified (ICD-10) Osteoarthritis ?M19.90 - Unspecified osteoarthritis, unspecified site (ICD-10) Surgical History (Updated 12/05/23 @ 10:29 by Rukhsana Smith) H/O colonoscopy ?Z98.890 - Other specified postprocedural states (ICD-10) H/O arthroscopy of right knee ?Z98.890 - Other specified postprocedural states (ICD-10) Social History Little interest or pleasure in doing things: not at all Feeling down, depressed, or hopeless: not at all Exam Constitutional Vital Signs, click to edit/add: Last Vital Signs Temp 98.2 F 10/27/25 20:42 Pulse 87 10/27/25 21:44 Resp 16 10/27/25 21:44 BP 148/82 H 10/27/25 21:44 Pulse Ox 98 10/27/25 21:44 O2 Del Method Room Air 10/27/25 20:42 Common normals: no apparent distress, average body habitus, oriented x3, no limitations, healthy appearing, alert and well nourished HENCA Common normals: normocephalic and head/scalp atraumatic Eye Common normals: EOMs intact bilaterally and conjunctivae normal Respiratory Common normals: normal respiratory effort, no retractions, no use of accessory muscles and clear to auscultation bilaterally Cardio Common normals: regular rate, regular rhythm, S1 normal heart sound and S2 normal heart sound GI Common normals: Normal to inspection, nondistended, normoactive bowel sounds present, soft to palpation and non-tender Extremity Other: mild swelling LLE. neg gastroc or popliteal tenderness. Extremity image (front):  1. area of ecchymosis. Has some swelling of the leg. No popliteal or gastroc tenderness. Calf is soft. No cords. Neg La's Neuro Common normals: oriented x3, CN's II-XII intact bilaterally, moves all extremities and no focal motor deficits Psych Appearance: grossly normal Course Vital Signs Vital signs: Vital Signs Temperature 98.2 F 10/27/25 20:42 Pulse Rate 94 H 10/27/25 20:42 Respiratory Rate 18 10/27/25 20:42 Blood Pressure 149/85 H 10/27/25 20:42 Pulse Oximetry 96 10/27/25 20:42 Oxygen Delivery Method Room Air 10/27/25 20:42 Temperature 98.2 F 10/27/25 20:42 Pulse Rate 87 10/27/25 21:44 Respiratory Rate 16 10/27/25 21:44 Blood Pressure 148/82 H 10/27/25 21:44 Pulse Oximetry 98 10/27/25 21:44 Oxygen Delivery Method Room Air 10/27/25 20:42 MDM - Extremity (Nontraumatic) MDM Narrative Medical decision making narrative: patient had left KAYLAH 7 days ago. now has ecchymosis about his left knee and dorsum of his shelton. Points to the left groin/hip area and states the discoloration was up here but this has now resolved. Today he was very active and about more so than any other time since his surgery. He does not have any gastroc tenderness , popliteal tenderness. no erythema or warmth of the leg. ecchymosis about the patella and tibia area. CBC with Hgb 11.7 and potassium 3.3. Patient and family advised I feel the ecchymosis and swelling are related to post op swelling. Ecchymosis by gravity has traveled down his leg> Very low suspicion for DVT. No calf tenderness, no popliteal tenderness. Patient low potassium supplemented. Patient discharged home to follow up with his family doctor. Lab Data Labs: Lab Results 10/27/25 Range/Units 21:06 WBC 8.6 (4.0-11.0) 10^3/uL RBC 3.60 L (4.70-6.10) 10^6/uL Hgb 11.7 L (14.0-18.0) g/dL Hct 32.6 L (42.0-54.0) % MCV 90.6 (80.0-94.0) fL MCH 32.5 (25.9-34.0) pg MCHC 35.9 H (29.9-35.2) g/dL RDW 11.5 (11.0-15.0) % Plt Count 267 (150-450) 10^3/uL MPV 8.2 L (9.5-13.5) fL Neut % (Auto) 57.4 (43.0-75.0) % Lymph % (Auto) 28.6 (20.5-60.0) % Ray % (Auto) 8.8 (1.7-12.0) % Eos % (Auto) 4.6 (0.9-7.0) % Baso % (Auto) 0.3 (0.2-2.0) % Neut # (Auto) 4.9 (1.4-6.5) 10^3/uL Lymph # (Auto) 2.5 (1.2-3.8) 10^3/uL Ray # (Auto) 0.8 (0.3-0.8) 10^3/uL Eos # (Auto) 0.4 (0.0-0.7) 10^3/uL Baso # (Auto) 0.0 (0.0-0.1) 10^3/uL Abs Immat Gran (auto) 0.03 (0.00-0.03) 10^3/uL Imm/Tot Granulo (auto) 0.3 (0.0-0.5) % Sodium 137 (136-145) mmol/L Potassium 3.3 L (3.5-5.1) mmol/L Chloride 99 (98-107) mmol/L Carbon Dioxide 29.4 (21.0-32.0) mmol/L Anion Gap 11.9 BUN 11.0 (7.0-18.0) mg/dL Creatinine 0.75 (0.70-1.30) mg/dL Est GFR ( Amer) >60 (>=60 mL/min/1.73m^2) Est GFR (Non-Af Amer) >60 (>=60 mL/min/1.73m^2) BUN/Creatinine Ratio 14.7 Glucose 135 H (74-106) mg/dL Calcium 8.5 (8.5-10.1) mg/dL Discharge Plan Discharge Chief Complaint: Extremity Problem, Nontraumatic Clinical Impression: Hematoma of left lower leg, Hypokalemia Patient Disposition: Home, Self-Care Mode of Transportation: Private Vehicle Prescriptions / Home Meds: No Action allopurinol 100 mg tablet 100 mg PO DAILY hydrochlorothiazide 25 mg tablet 25 mg PO DAILY losartan 100 mg tablet 100 mg PO DAILY rosuvastatin 10 mg tablet 10 mg PO DAILY testosterone 30 mg/actuation (1.5 mL) solution in metered pump w/bre 1 applic topical DAILY Rx Instructions: apply to ONE underarm area only; three days one a row then skip one day testosterone 30 mg/actuation (1.5 mL) solution in metered pump w/bre 2 pump topical .every three days Rx Instructions: apply to ONE underarm area only; alternate with each dose multivitamin Tablet 1 tab PO DAILY Print Language: Libyan Instructions: Hypokalemia (ED), Hematoma (ED) Additional Instructions: Rest and elevation, Follow up with your Physician as planned and return to ER for any problems or concerns Referrals: BRAYDON SAGE [Primary Care Provider, Internal Medicine] - 1 week Discharge Date/Time: 10/27/25 22:03
[2025-10-27 21:11] LABS: Hematocrit 32.6 % (42.0-54.0); Hemoglobin 11.7 g/dL (14.0-18.0); Immature Granulocytes Abs Auto 0.03 10^3/uL (0.00-0.03); Immature Granulocytes Pct Auto 0.3 % (0.0-0.5); Lymphocytes Absolute Auto 2.5 10^3/uL (1.2-3.8); Mean Corpuscular HGB Conc 35.9 g/dL (29.9-35.2); Mean Corpuscular Hemoglobin 32.5 pg (25.9-34.0); Mean Corpuscular Volume 90.6 fL (80.0-94.0); Platelet Count 267 10^3/uL (150-450); Red Blood Count 3.60 10^6/uL (4.70-6.10); White Blood Count 8.6 10^3/uL (4.0-11.0)
[2025-10-27 21:20] LABS: Anion Gap 11.9; Blood Urea Nitrogen 11.0 mg/dL (7.0-18.0); Calcium 8.5 mg/dL (8.5-10.1); Carbon Dioxide 29.4 mmol/L (21.0-32.0); Chloride 99 mmol/L (98-107); Estimated GFR (African America >60 (>=60 mL/min/1.73m^2); Estimated GFR (Non-African Ame >60 (>=60 mL/min/1.73m^2); Glucose 135 mg/dL (74-106); Potassium 3.3 mmol/L (3.5-5.1); Sodium 137 mmol/L (136-145)
--- OUTSIDE RECORDS SUMMARY | 2025-10-27 21:22 | XMS_ITS | Encounter Summary ---
Author Organization CXOWARE tem Address [id number] [address] [place] [address] Care Team Providers Care Concrete Rod Buster Name Role Phone Unavailable Primary Care Provider Unavailabl e Encounter Details DateTypeDepartmentCare Team (Latest Contact Info)Khjeembszhn43/11/2025Orders Only [facility] [address] [place] [address] Tracie Bagley LPN Primary osteoarthritis of left hip (Primary Dx) Social History Tobacco UseTypesPacks/DayYears UsedDateSmoking Tobacco: FormerCigarettes Smokeless Tobacco: CurrentSnuff Comments:Smoked for 30 years 1pk/day quit 2009 Alcohol UseStandard Drinks/TyrbAwbywokgHet33 (1 standard drink = 0.6 oz pure alcohol)ChildcareAnswerDate VrlirkqcWcdcduvkkLrtguut22/12/2019EmploymentAnswer Date YcevmrcrQszwevawhvLdlafhi67/12/2019Sex and Gender InformationValueDate RecordedSex Assigned at BirthNot on fileLegal UfqMxgm9706/09/2015 11:30 AM EDT Gender IdentityNot on fileSexual OrientationNot on filedocumented as of this encounter Plan of Treatment DateTypeDepartmentCare Team (Latest Contact Info)Lsuzyhpqucu21/02/2026 8:30 AM ESTOffice Visit [facility] [address] [place] [phone] Veronica Pimentel, PAJosefaC [address] [place], [place] [id number] documented as of this encounter Goals GoalPatient Goal TypeAssociated ProblemsRecent ProgressPatient-Stated?Author Autogenerated Goal Care PlanAutogenerated ProblemNoSchroeder, Allisondocumented as of this encounter Results * X-ray hip left [...] IMPRESSION: Left hip osteoarthritis. Finalized by Spike Chau MD on 10/18/2025 8:32 AM Procedure Note [...] 10/18/2025 8:32 AM Authorizing ProviderResult TypeResult StatusCraig Osvaldo [facility] DIAGNO[facility] IMAGING ORDERABLESFinal Result documented in this encounter Visit Diagnoses Diagnosis Primary osteoarthritis of left hip- Primary Primary osteoarthritis of left hip documented in this encounter Additional Health Concerns Active ProblemsNoted DateDiagnosed DateAutogenerated Ldexohm2408/10/2025documented as of this encounter
--- OUTSIDE RECORDS SUMMARY | 2025-10-27 21:22 | XMS_ITS | Encounter Summary ---
Author Organization Un[employer] tem Address [id number] [address] [place] [address] Care Team Providers Care Security Shift Supervisor Name Role Phone Unavailable Primary Care Provider Unavailabl e Encounter Details DateTypeDepartmentCare Team (Latest Contact Info)Gxnbfvzldyk32/15/2025Travel Social History Tobacco UseTypesPacks/DayYears UsedDateSmoking Tobacco: FormerCigarettes Smokeless Tobacco: CurrentSnuff Comments:Smoked for 30 years 1pk/day quit 2009 Alcohol UseStandard Drinks/SopwAuvabssbLhb25 (1 standard drink = 0.6 oz pure alcohol)ChildcareAnswerDate GfrheodaErzljvqmhLxepkte35/12/2019EmploymentAnswer Date EiecjspaRmjhuoyrnnMgbkvwo75/12/2019Sex and Gender InformationValueDate RecordedSex Assigned at BirthNot on fileLegal BysPtpx4606/09/2015 11:30 AM EDT Gender IdentityNot on fileSexual OrientationNot on filedocumented as of this encounter Plan of Treatment DateTypeDepartmentCare Team (Latest Contact Info)Qaxigqvthst48/02/2026 8:30 AM ESTOffice [facility] [address] [place] [phone] Veronica Pimentel PA-C [address] [place] [address] documented as of this encounter Goals GoalPatient Goal TypeAssociated ProblemsRecent ProgressPatient-Stated?Author Autogenerated Goal Care PlanAutogenerated ProblemNoSchroeder, Allisondocumented as of this encounter Visit Diagnoses Not on filedocumented in this encounter Additional Health Concerns Active ProblemsNoted DateDiagnosed DateAutogenerated Lvihits9908/10/2025documented as of this encounter
--- OUTSIDE RECORDS SUMMARY | 2025-10-27 21:22 | XMS_ITS | Encounter Summary ---
Author Organization 3dim tem Address [id number] [address] [place] [address] Care Team Providers Care Intelligence Director Name Role Phone Krystian Henriquez MD Primary Care Provider [phone] Reason for Visit * ReasonOnset DateCommentsPost-op Gucokwi3710/27/2025 Encounter Details DateTypeDepartmentCare Team (Latest Contact Info)Rohzhbnovni02/24/2025Nurse Triage [facility] [address] [place] [phone] Tiny Schrader RN Social History Tobacco UseTypesPacks/DayYears UsedDateSmoking Tobacco: FormerCigarettes Smokeless Tobacco: CurrentSnuff Comments:Smoked for 30 years 1pk/day quit 2009 Alcohol UseStandard Drinks/PhqjOqcnftpvWfr68 (1 standard drink = 0.6 oz pure alcohol)ChildcareAnswerDate QdtazlbqUooyekmtmRltzqsp17/12/2019EmploymentAnswer Date IgiqjzhiHaaxpgbedlXptuvvl94/12/2019Sex and Gender InformationValueDate RecordedSex Assigned at BirthNot on fileLegal LzoQpwo2706/09/2015 11:30 AM EDT Gender IdentityNot on fileSexual OrientationNot on filedocumented as of this encounter Miscellaneous Notes * Telephone Encounter - Tiny Schrader RN - 10/27/2025 7:35 PM EST ----- Message from Laura sent at 10/27/2025 7:34 PM EST ----- Contract: [id number] Ms Prabhu re bruising on leg this evening, wasn't there earlier; 1 above inner knee and 2 below the knee near shelton/calf; golf ball sized; post total hip, 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 Post total L hip on 10/20 . Noticed today ecchymosis: 1 area above inner knee and 2 areas below the knee -near lower leg- describes as golf ball sized; EntireLLE is swollen, thinks he may have been on it too long today, Denies fever, Denies SOB Reason for Disposition [1] Caller has URGENT question AND [2] triager unable to answer question Protocols used: Post-Op Incision Symptoms and Iwblhrbfi-H-PG * Telephone Encounter - Tiny Schrader RN - 10/27/2025 7:35 PM EST Contract: [id number] Confirmed Secure Chat seen by OC Provider a 0800- no message received * Telephone Encounter - Tiny Schrader RN - 10/27/2025 7:35 PM EST Contract: 190 Pt called for update, did not receive phone call from OC Provider, informed going to ER for evaluation of extremity documented in this encounter Plan of Treatment DateTypeDepartmentCare Team (Latest Contact Info)Drkqdpyfonw16/02/2026 8:30 AM ESTOffice Visit [facility] [address] [place] [address] Veronica Pimentel, PA-C [address] [place] [address] documented as of this encounter Goals GoalPatient Goal TypeAssociated ProblemsRecent ProgressPatient-Stated?Author Autogenerated Goal Care PlanAutogenerated ProblemNoSchroeder, Allisondocumented as of this encounter Visit Diagnoses Not on filedocumented in this encounter Additional Health Concerns Active ProblemsNoted DateDiagnosed DateAutogenerated Pvzfwer6208/10/2025documented as of this encounter Care Teams Team MemberRelationshipSpecialtyStart DateEnd Date Krystian Henriquez MD [address] [place] [address] PCP - GeneralInternal Fwletghr90/17/25documented as of this encounter
--- OUTSIDE RECORDS SUMMARY | 2025-10-27 21:23 | XMS_ITS | Clinical Summary ---
Author Organization [facility] Address [address] [place] [address] Care Team Providers Care Personal Coach Name Role Phone Krystian Henriquez MD Primary Care Provider [phone] Jose Maria Fan Unavailable [phone] Allergies No known active allergies Medications MedicationSigDispense QuantityRefillsLast FilledStart DateEnd DateStatus omega-3 (Fish Oil) 1000 MG capsule Take 1,000 mg by mouth DailyActive rosuvastatin (Crestor) 10 MG tablet Indications:Mixed hyperlipidemiaTAKE 1 TABLET BY MOUTH EVERY DAY 90 tablet 4045Active losartan (Cozaar) 100 MG tablet Indications:Essential (primary) hypertensionTAKE 1 TABLET BY MOUTH EVERY DAY 90 tablet 304/5Active allopurinol (Zyloprim) 100 MG tablet Indications:Gout, unspecifiedTAKE 1 TABLET BY MOUTH EVERY DAY FOR 100 DAYS 90 tablet 5Active hydroCHLOROthiazide (HYDRODiuril) 25 MG tablet Indications:Essential (primary) hypertensionTAKE 1 TABLET BY MOUTH EVERY DAY IN THE MORNING FOR 90 DAYS 90 tablet 5Active testosterone (Axiron) 30 MG/ACT topical solution Indications:Testosterone deficiencyPlace 1 Pump on the skin in the morning. 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 elevated testosterone level08/17/2025Results Follow-Up [facility] [address] [place] [address] Shivani Reagan NP CBC and differential, Basic metabolic panel, PSA, Additional followed-up results: 8:15 AM EDTOffice Visit [facility] [address] [place] [address] Shivani Reagan NP Essential hypertension (Primary Dx); Mixed hyperlipidemia; Prediabetes; Testosterone deficiency; History of gout; Need for immunization against ktdcxyxew79/13/9675Gygiaq90/11/2025Travelfrom Last 3 Months Immunizations ImmunizationAdministration DatesNext DueInflueroxaneza, Madin Strawn Canine Kidney, subunit, trivalent, injectable, contains zxjblsrfuick79/13/2025,08/03/2024 Pneumococcal Polysaccharide [id number] Family History Medical HistoryRelationNameCommentsNo Known ProblemsBrother4 brothersNo Known ProblemsDaughterHypertensionFatherPaul Syd EfraStrokeFatherPaul Sydsofya Green Known ProblemsSister2 sistersNo Known ProblemsSonRelationNameStatusComments BrotherDaughterAliveFatherPaul Sydsofya KrausDeceasedMotherDeceasedSisterSonAlive Social History Tobacco UseTypesPacks/DayYears UsedDateSmoking Tobacco: KknlkdWsoxemvpvm91.3 11/19/2015 - 2Passive Smoke Exposure: NeverSmokeless Tobacco: Never Tobacco Cessation:Counseling Given: Not Answered Alcohol UseStandard Drinks/WeekCommentsYes2 (1 standard drink = 0.6 oz pure alcohol)caffeine intake: 2-3 cups per dayAUDIT-CAnswerDate RecordedQ1: How often do you have a drink containing alcohol?2-3 times a week06/24/2023Q2: How many drinks containing alcohol do you have on a typical day when you are drinking?5 or 608Q3: How often do you have six or more drinks on one occasion?Less than mvhkdoa0406/24/2023HQ-2AnswerDate RecordedPatient Health Questionnaire-2 Tsfhz837Sex and Gender InformationValueDate RecordedSex Assigned at BirthNot on fileLegal GmtCdzq1601/16/2023 8:01 PM EDTGender IdentityNot on file Sexual OrientationNot on fileOccupationIndustryJob Start DateJob End Date Head Of Sales of [employer] full-timeNot on fileNot on fileNot on file Last Filed Vital Signs Vital SignReadingTime TakenCommentsBlood Hxlnqxyb695/8210 8:07 AM EDT Beqag785208/16/2025 8:07 AM EDTTemperature--Respiratory Rate--Oxygen Lzxnqzddxa84% 08/16/2025 8:07 AM EDTInhaled Oxygen Concentration--Gvjpgy43 kg (161 lb) 08/16/2025 8:07 AM QHLOzyjcb956.2 cm (5' 7 )08/16/2025 8:07 AM EDTBody Mass Index25.221 8:07 AM EDT Plan of Treatment DateTypeDepartmentCare Team (Latest Contact Info)Qxlegcmvdar63/20/2026 8:15 AM EDTOffice Visit [facility] [address] [place] [address] 04/07/2026 8:30 AM EDTOffice Visit [facility] [address] [place] [address] Kimberley Raman MD [address] [place] [address] Health MaintenanceDue DateLast DoneCommentsCT Iqtqzixsffjb1968FIT 1968FOBT05/25/19686617Dweuvtewvuwdu1968FIT-DNA, 11/13/20191484Engohzkdgni44/29/203306/, 05/02/2023, 05/02/2023olorectal Cancer Bqcojriux85/29/2033Pneumococcal Vaccine: Pediatrics (0 to 5 Years) and At-Risk Patients (6 to 64 Years)Aged Out12/15/2018No longer eligible based on patient's age to complete this topicInfluenza EtospagNsflzxbid29/13/2025, 08/03/2024 Procedures Procedure NamePriorityDate/TimeAssociated DiagnosisCommentsTESTOSTERONE, TOTAL, MALES (ADULT), QQUftfmnl51/08/2025 7:43 AM EST Testosterone deficiency UR MICROSCOPIC SUCVRJEfyyjiq49/13/2025 7:12 AM EDT URINALYSIS, COMPLETE W/SLHROPVGVGOwmswab48/13/2025 7:12 AM EDT Essential hypertension MICROALBUMIN / CREATININE URINE AZRUCTtstgrb35/13/2025 7:12 AM EDT Essential hypertension TESTOSTERONE, TOTAL, MALES (ADULT), IRBdnyytw65/13/2025 7:12 AM EDT Testosterone deficiency PSA, FCFOLKbthrif93/13/2025 7:12 AM EDT Encounter for screening prostate specific antigen (PSA) measurement BASIC METABOLIC DDCFEUeevjxi38/13/2025 7:12 AM EDT Essential hypertension CBC (INCLUDES DIFF/PLT)Lojjqex9708/16/2025 7:12 AM EDT Essential hypertension LAB COLOGUARD?? COLON CANCER QYNMYUTisbbji28/10/2020 from Last 3 Months or Most Recently Relevant to Health Maintenance Results * (ABNORMAL) Testosterone (10/11/2025 7:43 AM EST) Only the most recent of2 resultswithin the time period is included. ComponentValueRef RangeTest MethodAnalysis TimePerformed AtPathologist Signature TESTOSTERONE1,198(H)264 - 916 ng/dLLABCORPComment: Adult male reference interval is based on a population of healthy nonobese males (BMI <30) between 19 and 39 years old. Lotus et.al. JCEM 2017,102;9661-3463. PMID: [id number]. Specimen (Source)Anatomical Location / LateralityCollection Method / Volume Collection TimeReceived TimeBloodVenous blood specimen / Srxddbf5110/11/2025 7:43 AM EST10/11/2025 Narrative [facility] - 10/12/2025 6:07 AM EST Performed at: [address] ??[id number] Chef Kitchen Manager: Nilson Salinas PhD, Phone: ??[phone] Authorizing ProviderResult TypeResult StatusKrystian Henriquez MDLAB BLOOD ORDERABLES Final ResultPerforming OrganizationAddressCity/State/ZIP CodePhone Number [facility] * Ur Microscopic Reflex (08/16/2025 7:12 AM EDT)ComponentValueRef RangeTest MethodAnalysis TimePerformed AtPathologist SignatureWBC UrNone seen0 - 5 /hpf LABCORPRBC UrNone seen0 - 2 /hpfLABCORPEpithelial Cells (non renal) UrNone seen0 - 10 /hpfLABCORPBacteria UrNone seenNone seen/FewLABCORPSpecimen (Source)Anatomical Location / LateralityCollection Method / VolumeCollection TimeReceived Time08/16/2025 7:12 AM EDT1 Narrative [facility] - 08/17/2025 11:07 AM EDT Performed at: [place] [address] [address] [facility], [address] [facility], [place], [place] ??[id number] Chef Kitchen Manager: Daniel Pompa MD, Phone: ??[phone] Authorizing ProviderResult TypeResult StatusGina [place] Reagan NPLAB URINE ORDERABLESFinal ResultPerforming OrganizationAddressCity/State/ZIP CodePhone Number [facility] * Microalbumin / creatinine urine ratio (08/16/2025 7:12 AM EDT)ComponentValue Ref RangeTest MethodAnalysis TimePerformed AtPathologist SignatureCreat Ur 110.7Not Estab. mg/dLLABCORPAlbumin Ur3.2Not Estab. ug/mLLABCORPAlb/Creat Ratio Urine30 - 29 mg/g creatLABCORPComment: ? Normal: ?0 - ??29 ? Moderately increased: 30 - 300 Severely increased: >300 Specimen (Source)Anatomical Location / LateralityCollection Method / Volume Collection TimeReceived TimeUrineUrine specimen obtained by clean catch procedure / Qokpgmc6808/16/2025 7:12 AM EDT1 Narrative [facility] - 08/17/2025 11:07 AM EDT Performed at: [address] ??[id number] Chef Kitchen Manager: Nilson Salinas PhD, Phone: ??[phone] Authorizing ProviderResult TypeResult StatusGina R Risaliti NPLAB URINE ORDERABLESFinal ResultPerforming OrganizationAddressCity/State/ZIP CodePhone Number [facility] * Urinalysis with microscopic (08/16/2025 7:12 AM EDT)ComponentValueRef Range Test MethodAnalysis TimePerformed AtPathologist SignatureSpecific [place] Urine1.0201.005 - 1.030LABC[facility]PpH Urine6.55.0 - 7.5[facility]PColor UrineYellow YellowLABCORPAppearance UrineClearClearLABCORPWBC Esterase UrineNegative NegativeLABCORPProtein UrineNegativeNegative/TraceLABCORPGlucose UrineNegative NegativeLABCORPKetones UrineNegativeNegativeLABCORPOccult Blood UrineNegative NegativeLABCORPBilirubin UrineNegativeNegativeLABCORPUrobilinogen,Semi-Qn Urine0.20.2 - 1.0 mg/dLLABCORPNitrite UrineNegativeNegativeLABCORPUr MicroscopicSee below:[facility]PSpecimen (Source)Anatomical Location / Laterality Collection Method / VolumeCollection TimeReceived TimeUrineUrine specimen obtained by clean catch procedure / Wbpegez9108/16/2025 7:12 AM EDT1 Narrative [facility] - 08/17/2025 11:07 AM EDT Performed at: 01 - [facility] [address], [address], [place], [place] ??[id number] Chef Kitchen Manager: Daniel Pompa MD, Phone: ??[phone] Authorizing ProviderResult TypeResult StatusGina R Risaliti NPLAB URINE ORDERABLESFinal ResultPerforming OrganizationAddressCity/State/ZIP CodePhone Number [facility] * (ABNORMAL) CBC and differential (08/16/2025 7:12 AM EDT)ComponentValueRef RangeTest MethodAnalysis TimePerformed AtPathologist FleclleztVBT16.63.4 - 10.8 x10E3/uLLABCORPRBC4.734.14 - 5.80 x10E6/xUAEPTOHFBhs55.113.0 - 17.7 g/dL LBDWAKQJta26.337.5 - 51.0 %KEHCEJJWKP7740 - 97 jKPMWXALHLEN98.926.6 - 33.0 pg TRUOAMCMQEO66.331.5 - 35.7 g/xNDQMWEULTRK54.111.6 - 15.4 %DOPFOSNUsrzyrbap162 150 - 450 x10E3/zIKMXUDILNoqeyzsfrzy08Evv Estab. %BCITSCFGmayds84Wua Estab. % CIXQGBLNeiwjitbn1Eoq Estab. %DZQSLAJKqw5Frc Estab. %HDZWTZFIwbej3Ooo Estab. % [facility]ABCORPNeutrophils Abs8.2(H)1.4 - 7.0 x10E3/uLLABCORPLymphs Abs1.30.7 - 3.1 x10E3/uLLABCORPMonocytesAbs0.70.1 - 0.9 x10E3/uLLABCORPEos Abs0.30.0 - 0.4 x10E3/uLLABCORPBaso Abs0.00.0 - 0.2 x10E3/uLLABCORPImmature Vjkeckxywfeg6Spm Estab. %[facility]ABC[facility]PImmature Grans Abs0.00.0 - 0.1 x10E3/uLLABCORPSpecimen (Source) Anatomical Location / LateralityCollection Method / VolumeCollection Time Received TimeBloodVenous blood specimen / Yllqubm8608/16/2025 7:12 AM EDT 08/16/2025 Narrative [facility] - 08/17/2025 11:07 AM EDT Performed at: 01 - [facility] [address], [address] [place] [address] ??[id number] Chef Kitchen Manager: Daniel Pompa MD, Phone: ??[phone] Authorizing ProviderResult TypeResult StatusGina R Risaliti NPLAB BLOOD ORDERABLESFinal ResultPerforming OrganizationAddressCity/State/ZIP CodePhone Number [facility] * PSA (08/16/2025 7:12 AM EDT)ComponentValueRef RangeTest MethodAnalysis Time Performed AtPathologist SignaturePSA1.30.0 - 4.0 ng/mLLABCORPComment: Gilson ECLIA methodology. According to the [place] [employer], Serum PSA should decrease and remain at undetectable levels after radical prostatectomy. The AUA defines biochemical recurrence as an initial PSA value 0.2 ng/mL or greater followed by a subsequent confirmatory PSA value 0.2 ng/mL or greater. Values obtained with different assay methods or kits cannot be used interchangeably. Results cannot be interpreted as absolute evidence of the presence or absence of malignant disease. Specimen (Source)Anatomical Location / LateralityCollection Method / Volume Collection TimeReceived TimeBloodVenous blood specimen / Utaymxn5208/16/2025 7:12 AM EDT1 Narrative [facility] - 08/17/2025 11:07 AM EDT Performed at: - [facility] [address], [address] [place] [id number] Chef Kitchen Manager: Daniel Pompa MD, Phone: ??[phone] Authorizing ProviderResult TypeResult StatusGina R Risaliti NPLAB BLOOD ORDERABLESFinal ResultPerforming OrganizationAddressCity/State/ZIP CodePhone Number [facility] * (ABNORMAL) Basic metabolic panel (08/16/2025 7:12 AM EDT)ComponentValueRef RangeTest MethodAnalysis TimePerformed AtPathologist MvcvsavuuIiwflgc949(H)70 - 99 mg/bJNIRCHFVDJF108 - 24 mg/dLLABCORPCreat0.920.76 - 1.27 mg/dLLABCORPEGFR 97>59 mL/min/1.73LABC[facility]PBUN/Creat Ratio24(H)9 - 10ANDSOGZUjkycw805559 - 144 mmol/[facility]PPotassium4.43.5 - 5.2 mmol/HLMQBOXSBulczkzm5505 - 106 mmol/L [facility]PCarbon Qbuypzd78(H)20 - 29 mmol/LLABCORPCalcium9.98.7 - 10.2 mg/dL [facility]PSpecimen (Source)Anatomical Location / LateralityCollection Method / VolumeCollection TimeReceived TimeBloodVenous blood specimen / Unknown 08/16/2025 7:12 AM EDT1 Narrative [facility] - 08/17/2025 11:07 AM EDT Performed at: 01 - [place] [address] [address] [facility], [address], [place], [place] ??[id number] Chef Kitchen Manager: Daniel Pompa MD, Phone: ??[phone] Authorizing ProviderResult TypeResult StatusGina R Merary NPLAB BLOOD ORDERABLESFinal ResultPerforming OrganizationAddressCity/State/ZIP CodePhone Number [facility] * Cologuard?? colon cancer screening (11/13/2019)ComponentValueRef RangeTest MethodAnalysis TimePerformed AtPathologist SignatureCOLOGUARD RESULT REPORTABLENegativeNot ApplicableNOMS LEGACY EXTERNAL LABComment: A negative result indicates a low likelihood that a colorectal cancer (CRC) or an advanced adenoma (adenomatous polyps with more advanced pre-malignant features) is present. The chance that a person with a negative Cologuard test has a colorectal cancer is less than 1 in 1500 (negative predictive value >99.9%) or has an advanced adenoma is less than 5.3% (negative predictive value 94.7%). These data are based on a prospective cross-sectional screening study of 10,000 individuals at average risk for colorectal cancer who were screened with both Cologuard and colonoscopy. (Gissel Funes al, N Engl J Med 2014;370(14):2602-6243) COLOGUARD RE-SCREENING RECOMMENDATION: Periodic routine colorectal cancer screening is an important part of preventive healthcare for asymptomatic persons at average risk for colorectal cancer. Following a negative Cologuard result, the [place] [employer] Society and U.S. Multi-Society Task Force screening guidelines recommend a Cologuard re-screening interval of 3 years. References: [place] [employer] Society (ACS). Colorectal cancer prevention and early detection.[place], [place]: [place] [employer] Society; [updated 2015Feb 25]. https://www.cancer.org/cancer/colon-rec mounika-cancer/cimhbxdvm-hlmaubkyu-ruscxfd/acs-recommendations.html. Accessed July 04, 2018; Jayjay ALFONSO, Zane CAMPBELL, Nimo EarlK, Colorectal Cancer Screening: Recommendations for Physicians and Patients from the U.S. Multi-Society Task Force on Colorectal Cancer Screening, Am J Gastroenterology 2017; 112:2120-3252. Test Type: Composite algorithmic analysis of stool DNA-biomarkers with hemoglobin immunoassay. ??Quantitative values of individual biomarkers are not reportable and are not associated with individualbiomarker result reference ranges. Precautions and Limitations: Cologuard is intended for colorectal cancer screening of adults of either sex, 50 years or older, who are at typical average-risk for colorectal cancer. A negative Cologuard test result does not guarantee the absence of co lorectal cancer or advanced adenoma (pre-cancer). Patients with a negative Cologuard test result should be advised to continue participating in a colorectal cancer screening program. Cologuard may produce a positive result, even though a colonoscopy may not find colorectal cancer or precancerous polyps. The performance of Cologuard has been established in a cross sectional study (i.e., single point in time). Performance has not been evaluated in adults who have been previously tested with Cologuard or in patients less than 50 years of age. Cologuard has been approved for use by the U.S. FDA. Cologuard performance data in a 10,000 patient pivotal study using colonoscopy as the reference method can be accessed at the following location: www.[employer]/results. Additional description of the Cologuard test process, warnings and precautions can be found at www.cologuardtest.com. Rx Only. Specimen (Source)Anatomical Location / LateralityCollection Method / Volume Collection TimeReceived Time11/13/2019 Narrative Authorizing ProviderResult TypeResult StatusRobmodesto [facility] ORDERABLESFinal ResultPerforming OrganizationAddressCity/State/ZIP CodePhone Number [facility] from Last 3 Months or Most Recently Relevant to Health Maintenance Insurance * Guarantor: Dmitri Pelletier AAccount TypeRelation to PatientDate of BirthPhone Billing AddressPersonal/OptpwjCilw1970 [address] [address] Care Teams Team MemberRelationshipSpecialtyStart DateEnd Krystian Henriquez MD [address] [address] PCP - GeneralInternal Medicine04/09/23 Jose Maria Fan PA [address] [place] [address] Physician AssistantOrthopaedic Surgery01/08/24
--- OUTSIDE RECORDS SUMMARY | 2025-10-27 21:23 | XMS_ITS | Clinical Summary ---
Author Organization [employer] tem Address [id number] [address] [place] [address] Care Team Providers Care Home Service Technician Name Role Phone Krystian Henriquez MD Primary Care Provider [phone] Allergies No known active allergies Medications MedicationSigDispense QuantityRefillsLast FilledStart DateEnd DateStatus omega 3-ubv-zbv-fish oil 100-400-1,000 mg capsule Take 1,000 mg by mouth in the morning.Active hydroCHLOROthiazide (HYDRODIURIL) 25 mg tablet Take 1 tablet (25 mg total) by mouth daily.5Active losartan (COZAAR) 100 mg tablet Take 1 tablet (100 mg total) by mouth in the morning.Active rosuvastatin (CRESTOR) 10 mg tablet Take 1 tablet (10 mg total) by mouth in the morning.Active testosterone (ANDROGEL) 30 mg/actuation (1.5 mL) solution in metered pump w/bre Place 30 mg on the skin in the morning.Active aspirin 81 mg Indications:Primary osteoarthritis of left hipTake 1 tablet (81 mg total) by mouth in the morning and 1 tablet (81 mg total) before bedtime. Begin taking day AFTER total joint replacement. 60 tablet 5Active meloxicam (MOBIC) 15 mg tablet Indications:Primary osteoarthritis of left hipTake 1 tablet (15 mg total) by mouth in the morning. Begin taking day AFTER total joint replacement. 30 tablet 5Active allopurinoL (ZYLOPRIM) 100 mg tablet Take 1 tablet (100 mg total) by mouth in the morning.Active CREATINE MONOHYDRATE ORAL Take 2 tablets by mouth in the morning.Active edsipnur-hzpn-OM-calcium &mins (THERAGRAN-M) 9 mg iron-400 mcg tablet Take 1 tablet by mouth in the morning.Active oxyCODONE-acetaminophen (PERCOCET) 5-325 mg per tablet Indications:Primary osteoarthritis of left hipTake 1 tablet by mouth every 6 (six) hours as needed for pain for up to 7 days. Max Daily Amount: 4tablets 28 tablet 5Active Active Problems ProblemNoted DateDiagnosed DatePrimary osteoarthritis of left hip08/10/2025 Encounters DateTypeDepartmentCare FbedSwgwsqvoxnf56/24/2025Nurse Triage [facility] [address] [place] [address] Tiny Schrader RN 10/20/2025 7:30 AM EST - 10/20/2025 9:00 AM ESTSurgery [facility] [address] [place] [address] [place] [address] Oneal Cordero MD REPLACEMENT TOTAL JOINT HIP ANTERIOR SUPINE INTERMUSCULAR [34847 (CPT??)] 10/20/2025 7:10 AM ESTAnesthesia Event [facility] [address] [place] [address] [place] [address] Gopal Mcgovern MD 10/20/2025 5:41 AM EST - 10/20/2025 3:00 PM ESTHospital Encounter [facility] [address] [place] [address] Oneal Cordero MD Primary osteoarthritis of left hip (Primary Dx) Discharge Disposition: Home10/20/20256137Zatpsu17/16/2025Refill [facility] [address] [place] [address] Oneal Cordero MD Primary osteoarthritis of left hip10/18/2025 7:54 AM EST - 10/18/2025 11:59 PM ESTHospital Encounter [facility] [address] [place] [address] [place] [address] Oneal Cordero MD Primary osteoarthritis of left hip Discharge Disposition: Home10/18/20253320Fpewoz60/11/2025Orders Only [facility] [address] [facility] [place] [address] Tracie Bagley LPN Primary osteoarthritis of left hip (Primary Dx)10/06/2025 12:30 PM ESTProcedure visit [facility] [address] [place] [address] Borderline diabetes (Primary Dx)10/06/20255108Mcdyjp91/19/2025Orders Only [facility] [address] [place] [address] Jennifer Anthony CMA Primary osteoarthritis of left hip (Primary Dx)from Last 3 Months Family History Medical HistoryRelationNameCommentsAneurysmFatherDepressionMotherRelationName StatusCommentsFatherDeceasedMotherDeceased Social History Tobacco UseTypesPacks/DayYears UsedDateSmoking Tobacco: FormerCigarettes Smokeless Tobacco: CurrentSnuff Tobacco Cessation:Ready to Q uit: Not Asked; Counseling Given: Not Answered Comments:Smoked for 30 years 1pk/day quit 2009 Alcohol UseStandard Drinks/TeskUbfyyqhfWyu34 (1 standard drink = 0.6 oz pure alcohol)ChildcareAnswerDate KiiystxnOdnfcjgswMokassa60/12/2019EmploymentAnswer Date WczilkoxInnpulmhzgNtnglmz21/12/2019Sex and Gender InformationValueDate RecordedSex Assigned at BirthNot on fileLegal MeaFtox6706/09/2015 11:30 AM EDT Gender IdentityNot on fileSexual OrientationNot on file Last Filed Vital Signs Vital SignReadingTime TakenCommentsBlood Gilszvvj807/80112/21/2024 2:45 PM EST Wzxkg672210/20/2025 12:05 PM PJYVbxooiatrrq34.4 ??C (97.5 ??F)10/20/2025 2:45 PM ESTRespiratory Sczv167012/21/2024 2:45 PM ESTOxygen Xgignbyqrs17%10/20/2025 2:45 PM ESTInhaled Oxygen Concentration--Hxqwcq08.6 kg (160 lb)10/20/2025 6:38 AM EST Oqmlow038 cm (5' 7.72 )10/20/2025 6:38 AM ESTBody Mass Index24.5310/20/2025 6:38 AM EST Plan of Treatment DateTypeDepartmentCare Team (Latest Contact Info)Ckdjuabsnfh20/02/2026 8:30 AM ESTOffice Visit [facility] [address] [place] [address] Veronica Pimentel PA-C [address] [place] [address] Health MaintenanceDue DateLast DoneCommentsTobacco Vvhzphmjce1968 Depression Pfhsbolfu54/22/1980DTaP,Tdap and Td Vaccines (1 - Tdap)1987 Zoster (Shingles) Vaccine (1 of 2)2018Adult BMI Agxfsumwj56/17/2026 10/20/2025Tobacco Nqqmfizmd97Influenza VaccineCompleted 08/16/2025, 08/03/2024 Goals GoalPatient Goal TypeAssociated ProblemsRecent ProgressPatient-Stated?Author Autogenerated Goal Care PlanAutogenerated ProblemNoSchroWhit angel Medical Devices ImplantedTypeAreaManufacturerDevice IdentifierShelf Expiration DateModel / Serial / LotShell Actb 56mm Hip Lmt Hl Clr Cd Pps G7 F Hmsphr - [id number] Implanted:Qty: 1 on 10/20/2025 by [facility]: HipZimmer [id number]/12/2035 [id number] / / [id number] Actb 36mm F Vivacit-E Lum G7 Hip Strl Lf - [id number] Implanted:Qty: 1 on 10/20/2025 by Oneal Cordero MD at [facility] ImplantLeft: HipZimmer [id number] / / [id number] Fem 36mm G7 Blx D Biolox Opt Hip Rpl 650-5267 - [id number] Implanted:Qty: 1 on 10/20/2025 by Oneal Cordero MD at [facility] ImplantLeft: HipZimmer [id number] / / [id number] Fem 109mm 12mm 133d Hi Os Tpr Tprlk Microplasty Pps Ti - [id number] Implanted:Qty: 1 on 10/20/2025 by Oneal Cordero MD at [facility] ImplantLeft: HipZimmer [id number] / / [id number] Hip -6mm Os Tpr G7 Blx D Opt Ti Centering Ty 1 Rpl 650-3540 - [id number] Implanted:Qty: 1 on 10/20/2025 by Oneal Cordero MD at [facility] ImplantLeft: HipZimmer [id number] / / [id number] Procedures Procedure NamePriorityDate/TimeAssociated DiagnosisCommentsXR PELVIS 1 OR 2 VWS STAT112/21/2024 9:27 AM EST XR HIP LT 1 VIEW W OR WO LQKAIKNyekcdj97/17/2025 8:44 AM EST ANESTHESIA SPINAL FCTJAKfmehbl29/17/2025 7:53 AM EST MA TOTAL HIP RWNMTYSSYMJU88/17/2025 7:30 AM EST Primary osteoarthritis of left hip Special Needs BIOMET BEDSIDE ZEYNBCDBlerpcy29/17/2025 6:47 AM EST XR HIP LT 1 VIEW W OR WO NNIREDCmzbgvp25/15/2025 8:17 AM EST Primary osteoarthritis of left hip ECG 12-MBVKGjduzzw93/03/2025 1:30 PM EST Borderline diabetes HEMOGLOBIN U1PEakixfu17/03/2025 12:53 PM EST Borderline diabetes CBC (NO DIFF)Plkphql2910/06/2025 12:53 PM EST Borderline diabetes BASIC METABOLIC YGAORZjdzbyf50/03/2025 12:53 PM EST Borderline diabetes from Last 3 Months Results * X-ray pelvis 1 or 2 [...] 9:32 AM Authorizing ProviderResult TypeResult StatusCraig P Assenmacher MDG DIAGNOSTIC IMAGING ORDERABLESFinal Result * X-ray hip left 1 view with or without pelvis (10/20/2025 8:44 AM EST) Only the most recent of2 resultswithin the time period is included. Anatomical RegionLateralityModalityLower Extremities, MSK, HipLeftRadio FluoroscopySpecimen (Source)Anatomical [...] 9:21 AM Authorizing ProviderResult TypeResult StatusCraig P Gil VANESSA DIAGNOSTIC IMAGING ORDERABLESFinal Result * Spinal Block (10/20/2025 7:53 AM EST) [...] ?? Monitoring: ??Blood Pressure, Continuous Pulse Ox, Furnace Converter and Heart Rate Oxygen Source: ??Room Air Approach: ??Midline Location: ??L4-L5 Injection Technique: ??Single-Shot Placement Technique: [place] Technique ?? Placement Technique: not ultrasound guided ??not ultrasound guided Local Infiltration: ??Lidocaine 1% Dose: ??3 mL Needle: Needle Type: ??Pencan/Atraucan Needle Gauge: ??24 G Catheter Type: ??Open End Anesthesia Block Medication Given: xhvyaikbana-nsejxmsp-judrp(PF) (MARCAINE SPINAL) 0.75 % (7.5 mg/mL) injection - intrathecal, Back 1.5 mL - 10/20/2025 7:14:00 AM Number of Attempts: ??1 CSF Comment: ??Clear Free-Flowing CSF Injection Assessment: ??No Paresthesia on Injection and No Pain on Injection Comments: VSS and on preop record; SENIOR WAREHOUSE CLERK remains with patient in preop post SAB Authorizing ProviderResult TypeResult StatusGopal Mcgovern MDANESTHESIA ORDERABLES Final Result * Bedside Glucose *Place/Obtain serum glucose if >500 per glucometer. (10/20/2025 6:47 AM EST)ComponentValueRef RangeTest MethodAnalysis Time Performed AtPathologist SignatureBedside Glucose (POC)9465 - 99 mg/dL 10/20/2025 6:52 AM [facility]ITALpecimen (Source)Anatomical Location / LateralityCollection Method / VolumeCollection TimeReceived Time arterial/hypgcgqfj25/17/2025 6:47 AM EST10/20/2025 6:52 AM EST Narrative Authorizing ProviderResult TypeResult StatusCraig P Assenmacher MDPOINT OF CARE TEST ORDERABLESFinal ResultPerforming OrganizationAddressCity/State/ZIP Code Phone Number [facility] [address] [place] [address], [place] * ECG 12 lead (10/06/2025 1:30 PM EST)Specimen (Source)Anatomical Location / LateralityCollection Method / VolumeCollection TimeReceived Time10/06/2025 1:30 PM EST Narrative [facility] - 10/06/2025 3:21 PM EST Authorizing ProviderResult TypeResult StatusApa RIVERAG ORDERABLESFinal ResultPerforming OrganizationAddressCity/State/ZIP CodePhone Number [place] * (ABNORMAL) CBC without diff (10/06/2025 12:53 PM EST)ComponentValueRef Range Test MethodAnalysis TimePerformed AtPathologist SignatureWBC7.84 - 11 10^9/L 10/06/2025 1:27 PM [facility]PITALRBC Count4.714.1 - 5.7 10^12/L112/07/2024 1:27 PM [facility]ITALHemoglobin15.113 - 17 g/dL10/06/2025 1:27 PM [facility]ITALHematocrit43.739 - 50 % 10/06/2025 1:27 PM [facility]ITALMCV9380 - 100 fL10/06/2025 1:27 PM [facility]ITALMCH32.127 - 34 pg10/06/2025 1:27 PM [facility]ENTERMCHC34.632 - 36 g/dL10/06/2025 1:27 PM [facility]OSPITALRDW13.011.5 - 15 %10/06/2025 1:27 PM [facility]OSPITALPlatelet Vfyfj542636 - 450 10^9/L112/07/2024 1:27 PM [facility]ITALMPV6.6(L)7 - 12 fL10/06/2025 1:27 PM [facility]ITALpecimen (Source)Anatomical Location / LateralityCollection Method / VolumeCollection TimeReceived TimeBloodVenous blood / UnknownVenipuncture / Ksecsmv9010/06/2025 12:53 PM EST10/06/2025 12:53 PM EST Narrative Authorizing ProviderResult TypeResult StatusGopal GILLIS BLOOD ORDERABLES Final ResultPerforming OrganizationAddressCity/State/ZIP CodePhone Number [facility] [address] [place], [place] [address], * Hemoglobin A1c (10/06/2025 12:53 PM EST)ComponentValueRef RangeTest Method Analysis TimePerformed AtPathologist SignatureHEMOGLOBIN A1C5.44.4 - 5.6 % 10/06/2025 4:13 PM [facility] LABORATORYComment: ?ADA Guidelines ?Result ?HgbA1c ? Normal : ? less than 5.7 % ? Prediabetes : ?5.7 % ??to 6.4 % Diabetes : > 6.4 % ?Use with caution in patients with abnormal hemoglobin variants as ??the half-life of red blood cells and in vivo glycation rates are ??affected. EST. AVERAGE BHNZXOR197zr/dL10/06/2025 4:13 PM [facility] LABORATORYSpecimen (Source)Anatomical Location / LateralityCollection Method / VolumeCollection TimeReceived TimeBloodVenous blood / UnknownVenipuncture / Qfrtrlb0210/06/2025 12:53 PM EST10/06/2025 12:53 PM EST Narrative Authorizing ProviderResult TypeResult StatusGopal Mcgovern MDLAB BLOOD ORDERABLES Final ResultPerforming OrganizationAddressCity/State/ZIP CodePhone Number [facility] [address] [place] [phone], * (ABNORMAL) Basic Metabolic Panel (10/06/2025 12:53 PM EST)ComponentValueRef RangeTest MethodAnalysis TimePerformed AtPathologist HwicirpmfNFKZCX777936 - 146 mmol/L112/07/2024 1:31 PM [facility]OSPITALPOTASSIUM3.83.5 - 5.0 mmol/L112/07/2024 1:31 PM [facility]OSPITALCHLORIDE96(L)98 - 109 mmol/L112/07/2024 1:31 PM [facility] HOSPITALCARBON MQHUTXM4072 - 32 mmol/L112/07/2024 1:31 PM [facility]OSPITALANION RJL613 - 15 mmol/L112/07/2024 1:31 PM [facility] HOSPITALBLOOD UREA RAWCURHT834 - 23 mg/dL10/06/2025 1:31 PM [facility] HOSPITALCREATININE0.770.70 - 1.20 mg/dL10/06/2025 1:31 PM [facility]OSPITALComment:METHOD TRACEABLE TO IDMS ZPZKLVDMUAMCELK1820 - 99 mg/dL10/06/2025 1:31 PM [facility] HOSPITALCALCIUM9.18.5 - 10.5 mg/dL10/06/2025 1:31 PM [facility] HOSPITALEGFR Non-Race Dependent>90>=60 ml/min/1.73sq.m112/07/2024 1:31 PM [facility]OSPITALComment: eGFR not reported due to non-numeric value for Creatinine. Reported eGFR is based on the CKD-EPI 2020 equation that does not use a race coefficient. Specimen (Source)Anatomical Location / LateralityCollection Method / Volume Collection TimeReceived TimeBloodVenous blood / UnknownVenipuncture / Unknown 10/06/2025 12:53 PM EST10/06/2025 12:53 PM EST Narrative Authorizing ProviderResult TypeResult StatusApa GILLIS BLOOD ORDERABLES Final ResultPerforming OrganizationAddressCity/State/ZIP CodePhone Number [facility] [address] [place] [address], from Last 3 Months Additional Health Concerns Active ProblemsNoted DateDiagnosed DateAutogenerated Dsoswmv4608/10/2025 Insurance * Guarantor: Dmitri PelletierAccount TypeRelation to PatientDate of PhoneBilling AddressPersonal/MnlehdOoal1970 [address] [address] Care Teams Team MemberRelationshipSpecialtyStart DateEnd Krystian Henriquez MD [address] [facility] [address] [place] [address] PCP - GeneralInternal Qmwwhghq96/17/25
--- OUTSIDE RECORDS SUMMARY | 2025-10-27 21:23 | XMS_ITS | Encounter Summary ---
Author Organization [employer] tem Address [id number] [address] [place] [address] Care Team Providers Care Refinery Pipeline Operator Name Role Phone Krystian Henriquez MD Primary Care Provider [phone] Encounter Details DateTypeDepartmentCare Team (Latest Contact Info)Nkrnxanbwax61/17/2025Travel Social History Tobacco UseTypesPacks/DayYears UsedDateSmoking Tobacco: FormerCigarettes Smokeless Tobacco: CurrentSnuff Comments:Smoked for 30 years 1pk/day quit 2009 Alcohol UseStandard Drinks/WqdzFdrkgdoqFzm81 (1 standard drink = 0.6 oz pure alcohol)ChildcareAnswerDate CcalabxrMmvuorkymNxqvwww46/12/2019EmploymentAnswer Date QdtzwwwkGzkehyrkvrBmvidse92/12/2019Sex and Gender InformationValueDate RecordedSex Assigned at BirthNot on fileLegal UbpVckp8606/09/2015 11:30 AM EDT Gender IdentityNot on fileSexual OrientationNot on filedocumented as of this encounter Plan of Treatment DateTypeDepartmentCare Team (Latest Contact Info)Hfkhjlcwubm22/02/2026 8:30 AM ESTOffice Visit [facility] [address] [place] [address] Veronica Pimentel PA-C [address] [place] [address] documented as of this encounter Goals GoalPatient Goal TypeAssociated ProblemsRecent ProgressPatient-Stated?Author Autogenerated Goal Care PlanAutogenerated ProblemNoSchroeder, Allisondocumented as of this encounter Visit Diagnoses Not on filedocumented in this encounter Additional Health Concerns Active ProblemsNoted DateDiagnosed DateAutogenerated Efxzojy4608/10/2025documented as of this encounter Care Teams Team MemberRelationshipSpecialtyStart DateEnd Date Krystian Henriquez MD [address] [facility] [address] [place] [id number] PCP - GeneralInternal Ladyevmi42/17/25documented as of this encounter
--- OUTSIDE RECORDS SUMMARY | 2025-10-27 21:23 | XMS_ITS | Encounter Summary ---
Author Organization [facility] Address [address] [place] [address] Care Team Providers Care Rubber Goods Cutter Finisher Name Role Phone Krystian Henriquez MD Primary Care Provider [phone] Jose Maria Fan Unavailable [phone] Reason for Visit * ReasonOnset DateCommentselevated testosterone level10/19/2025 Encounter Details DateTypeDepartmentCare Team (Latest Contact Info)Yixbvecvcqf94/16/2025Telephone [facility] [address] [facility] [address] [place] [address] Helen Carr LPN elevated testosterone level Social History Tobacco UseTypesPacks/DayYears UsedDateSmoking Tobacco: FlcdpwEcpupljmoz56.3 11/19/2015 - 2Passive Smoke Exposure: NeverSmokeless Tobacco: Never Alcohol UseStandard Drinks/WeekCommentsYes2 (1 standard drink = 0.6 oz pure alcohol)caffeine intake: 2-3 cups per dayAUDIT-CAnswerDate RecordedQ1: How often do you have a drink containing alcohol?2-3 times a week06/24/2023Q2: How many drinks containing alcohol do you have on a typical day when you are drinking?5 or 608/Q3: How often do you have six or more drinks on one occasion?Less than drbuypy3406/24/2023HQ-2AnswerDate RecordedPatient Health Questionnaire-2 Woned096Sex and Gender InformationValueDate RecordedSex Assigned at BirthNot on fileLegal XheGqdp1101/16/2023 8:01 PM EDTGender IdentityNot on file Sexual OrientationNot on fileOccupationIndustryJob Start DateJob End Date Indoor Sports Centre Manager [employer], Works full-timeNot on fileNot on fileNot on filedocumented as of this encounter Miscellaneous Notes * Telephone Encounter - Helen Carr LPN - 10/19/2025 2:21 PM EST Orders and med instructions reviewed , verbalized understanding * Telephone Encounter - Omayra Rangel LPN - 10/19/2025 1:42 PM EST LM TO CB Lab order sent to [facility] * Telephone Encounter - Krystian Henriquez MD - 10/19/2025 1:38 PM EST Tell him to flip what he is doing currently and do 1 pump on Sat-Sat-Fri and do 1/2 pump other days. Send order to check testosterone level in 2 months. * Telephone Encounter - Helen Carr LPN - 10/19/2025 1:03 PM EST Patient called asking what changes have to be made due to his high testosterone levels? Please advise documented in this encounter Plan of Treatment DateTypeDepartmentCare Team (Latest Contact Info)Afwtcolbitb33/20/2026 8:15 AM EDTOffice Visit [facility] [address] [place] [address] 04/07/2026 8:30 AM EDTOffice Visit [facility] [place] [facility] [address] [place] [address] Kimberley Raman MD [address] [place] [address] NameTypePriorityAssociated DiagnosesOrder ScheduleTestosteroneLabRoutine Testosterone deficiency Expected: 12/20/2025, Expires: 10/19/2026documented as of this encounter Visit Diagnoses Diagnosis Testosterone deficiency Other testicular hypofunction documented in this encounter Care Teams Team MemberRelationshipSpecialtyStart DateEnd Krystian Henriquez MD [address] [facility] [address] [place] [address] PCP - GeneralInternal Medicine04/09/23 Jose Maria Fan PA [address] [place] [address] Physician AssistantOrthopaedic Surgery01/08/24documented as of this encounter
--- OUTSIDE RECORDS SUMMARY | 2025-10-27 21:23 | XMS_ITS | Encounter Summary ---
Author Organization [employer] tem Address [id number] [address] [place] [address] Care Team Providers Care Top Loader Name Role Phone Krystian Henriquez MD Primary Care Provider [phone] Reason for Visit * ReasonCommentsMed Change Request Encounter Details DateTypeDepartmentCare Team (Latest Contact Info)Rdyrkocfopp79/16/2025Refill [facility] [address] [facility] [address] [place] [address] Oneal Cordero MD [address] [place] [address] Primary osteoarthritis of left hip Social History Tobacco UseTypesPacks/DayYears UsedDateSmoking Tobacco: FormerCigarettes Smokeless Tobacco: CurrentSnuff Comments:Smoked for 30 years 1pk/day quit 2009 Alcohol UseStandard Drinks/XgqgJudscvutLlq02 (1 standard drink = 0.6 oz pure alcohol)ChildcareAnswerDate YpfhofboVhizccnqoMwgfzck43/12/2019EmploymentAnswer Date YkteqlzkSpqvktppixGjdrjna51/12/2019Sex and Gender InformationValueDate RecordedSex Assigned at BirthNot on fileLegal JrkTtni1106/09/2015 11:30 AM EDT Gender IdentityNot on fileSexual OrientationNot on filedocumented as of this encounter Plan of Treatment DateTypeDepartmentCare Team (Latest Contact Info)Nmstfcpwkke78/02/2026 8:30 AM ESTOffice Visit [facility] [address] [place] [phone] Veronica Pimentel PA-C [address] [facility] [address] [place] [address] documented as of this encounter Goals GoalPatient Goal TypeAssociated ProblemsRecent ProgressPatient-Stated?Author Autogenerated Goal Care PlanAutogenerated ProblemNoSchroeder, Allisondocumented as of this encounter Visit Diagnoses Diagnosis Primary osteoarthritis of left hip documented in this encounter Additional Health Concerns Active ProblemsNoted DateDiagnosed DateAutogenerated Atuanka4608/10/2025documented as of this encounter Care Teams Team MemberRelationshipSpecialtyStart DateEnd Krystian Henriquez MD [address] [place] [address] PCP - GeneralInternal Yxwruqyh93/17/25documented as of this encounter
[2025-10-27] MEDS: POTASSIUM CHLORIDE 10 MEQ ER TABLET 40 MEQ PO (21:41)
[2025-10-27 21:44] VITALS: BP 148/82; PULSE 87; O2SAT 98
== END 2025-10-27 22:03 | disposition home or self-care (01) ==
PROVIDERS: Emergency Provider Internal Medicine; PCP Internal Medicine
DX: S80.12XA Contusion of left lower leg, initial encounter (principal); E87.6 Hypokalemia; X58.XXXA Exposure to other specified factors, initial encounter; Z96.642 Presence of left artificial hip joint
CPT/HCPCS: 36415; 80048; 85025; 99283